=== PATIENT | female | born 1975 | race Native Hawaiian/Other Pacific Islander ===

== ENCOUNTER 2020-10-14 11:07 | Outpatient (REF) | payer OTHER, SELFPAY | END 2020-10-14 11:08 | disposition home or self-care (01) | LOC: HO.LAB 11:07 | PROVIDERS: Visit Provider Internal Medicine | DX: Z20.828 Contact with and (suspected) exposure to other viral communicable diseases (principal) | CPT/HCPCS: C9803; U0003 ==

== ENCOUNTER 2020-11-13 13:58 | Outpatient (REF) | payer OTHER, SELFPAY | END 2020-11-13 13:59 | disposition home or self-care (01) | LOC: HO.LAB 13:58 | PROVIDERS: PCP Nurse Practitioner Family; Visit Provider Internal Medicine | DX: Z20.828 Contact with and (suspected) exposure to other viral communicable diseases (principal) | CPT/HCPCS: C9803; U0003 ==

== ENCOUNTER → 2020-12-03 12:36 | Outpatient (BNVA) | payer OTHER, SELFPAY | PROVIDERS: PCP Nurse Practitioner Family; Visit Provider Surgery | DX: Z01.818 Encounter for other preprocedural examination (principal); E66.01 Morbid (severe) obesity due to excess calories; R06.02 Shortness of breath | CPT/HCPCS: 99202 ==

== ENCOUNTER 2020-12-18 12:17 | Outpatient (REF) | payer OTHER, SELFPAY ==
--- NOTE | 2020-12-18 12:22 | ECG_ITS ---
Test Reason : SOB Blood Pressure : / mmHG Vent. Rate : 074 BPM Atrial Rate : 074 BPM P-R Int : 140 ms QRS Dur : 084 ms QT Int : 398 ms P-R-T Axes : 011 003 005 degrees QTc Int : 441 ms Normal sinus rhythm Normal ECG No previous ECGs available Referred By: Samreen Acevedo Electronically Signed By:Tate Figueroa
--- NOTE | 2020-12-18 12:43 | XR_ITS ---
EXAMINATION: XR CHEST CLINICAL INFORMATION: Shortness of breath COMPARISON: None TECHNIQUE: 2 views of the chest were obtained. FINDINGS: No significant abnormality is noted involving the heart, lungs, mediastinum, bony thorax or soft tissues. XR/XR chest 2V IMPRESSION: Unremarkable chest examination.
[2020-12-18 12:44] LABS: MANUAL DIFF FLAG NO
[2020-12-18 12:46] LABS: Basophils Percent Auto 0.4 % (0-2); Eosinophils Absolute Auto 0.3 X10*3/uL (0.0-0.4); Eosinophils Percent Auto 3.3 % (0-4); Hematocrit 47.9 % (37-47); Hemoglobin 15.3 g/dl (12.0-16.0); Imm Gran Abs Auto 0.05 X10*3/uL (0.00-0.03); Imm Gran Pct Auto 0.5 % (0.0-0.4); Lymphocytes Percent Auto 29.7 % (20-40); Mean Corpuscular HGB Conc 31.9 g/dl (31.0-35.0); Mean Corpuscular Hemoglobin 26.2 pg (27.0-33.0); Mean Platelet Volume 12.9 fL (9.4-12.3); Monocytes Absolute Auto 0.5 X10*3/uL (0.1-1.2); Neutrophils Absolute Auto 6.1 X10*3/uL (2.0-8.3); Neutrophils Percent Auto 61.1 % (45-73); Platelet Count 236 X10*3/uL (160-400); Red Blood Count 5.84 X10*6/uL (4.20-5.50); Red Cell Distribution Width 13.8 % (11.0-16.0)
[2020-12-18 13:09] LABS: Alanine Aminotransferase 38 U/L (0-31); Albumin Level 3.7 g/dL (3.5-5.0); Alkaline Phosphatase 96 U/L (39-117); Anion Gap 13 (12-20); Aspartate Amino Transferase 44 U/L (5-31); Bilirubin Total 0.9 mg/dL (0.0-1.0); Blood Urea Nitrogen 10 mg/dL (9-16); C Reactive Protein 4.31 mg/dL (< or = 0.50); Carbon Dioxide 25 mmol/L (22-29); Chloride 103 mmol/L (96-108); Cholesterol 122 mg/dL; Estimated Glomerular Filt Rate > 60; Glucose Fasting 271 mg/dL (60-99); HDL Cholesterol 32 mg/dL; Iron 50 mcg/dL (30-160); LDL Cholesterol Calculated 75 mg/dl; Percent Iron Saturation 17 % (15-50); Potassium 4.3 mmol/l (3.3-5.1); Sodium 137 mmol/L (135-145); Total Iron Binding Capacity 293 mcg/dL (228-428); Triglycerides 75 mg/dL; Unsaturated Iron Binding 243 ug/dL
[2020-12-18 13:29] LABS: Thyroid Stimulating Hormone 1.77 uIU/mL (0.32-4.0)
[2020-12-18 13:52] LABS: Vitamin B12 633 pg/mL (200-900)
[2020-12-19 16:22] LABS: Calcium (PTHI) 9.1 mg/dL (8.6-10.2); PTHI 46 pg/mL (14-64)
[2020-12-20 22:47] LABS: Zinc 57 mcg/dL (60-130)
[2020-12-23 12:56] LABS: Vitamin B1 <6 nmol/L (8-30)
[2020-12-25 15:52] LABS: Vitamin A 14 mcg/dL (38-98)
== END 2020-12-18 12:18 | disposition home or self-care (01) ==
LOC: HO.LAB 12:17
PROVIDERS: PCP Nurse Practitioner Family; Visit Provider Surgery
DX: Z01.818 Encounter for other preprocedural examination (principal); R06.02 Shortness of breath
CPT/HCPCS: 36415; 71046; 80053; 80061; 82306; 82607; 83540; 83970; 84425; 84443; 84590; 84630; 85025; 86140; 93005

== ENCOUNTER → 2020-12-19 08:07 | Outpatient (BNVA) | payer OTHER, SELFPAY | PROVIDERS: PCP Nurse Practitioner Family; Visit Provider Surgery ==

== ENCOUNTER 2020-12-23 10:17 | Outpatient (REF) | payer OTHER, SELFPAY | END 2020-12-23 10:18 | disposition home or self-care (01) | LOC: HO.LAB 10:17 | PROVIDERS: Visit Provider Internal Medicine | DX: Z20.822 Contact with and (suspected) exposure to COVID-19 (principal) | CPT/HCPCS: 36415; C9803; U0003; U0005 ==

== ENCOUNTER → 2021-01-02 08:24 | Outpatient (BNVA) | payer OTHER, SELFPAY | PROVIDERS: PCP Nurse Practitioner Family; Visit Provider Dietitian, Registered ==

== ENCOUNTER → 2021-01-23 08:12 | Outpatient (BNVA) | payer OTHER, SELFPAY | PROVIDERS: PCP Nurse Practitioner Family; Visit Provider Dietitian, Registered ==

== ENCOUNTER → 2021-11-05 08:42 | Outpatient (BNVA) | payer OTHER, SELFPAY | PROVIDERS: PCP Nurse Practitioner Family; Visit Provider Hospitalist | DX: J31.0 Chronic rhinitis (principal); J45.909 Unspecified asthma, uncomplicated; G47.33 Obstructive sleep apnea (adult) (pediatric); F17.200 Nicotine dependence, unspecified, uncomplicated; Z99.89 Dependence on other enabling machines and devices | CPT/HCPCS: 99202 ==

== ENCOUNTER 2021-12-18 09:39 | Outpatient (REF) | payer OTHER, SELFPAY ==
--- NOTE | 2021-12-18 13:10 | PFT_ITS ---
Forced vital capacity 68%, moderately decreased. FEV1 72% but FEV1/FVC ratio is 87, which is normal. FEF 25/75 82%, normal. MVV moderately reduced, 61. Postbronchodilator therapy, there is no change. Total lung capacity 77, slightly decreased. Residual volume 89% and diffusion capacity 81%. CONCLUSION: Vruw-kh-vbxyvbvc degree of restrictive pulmonary disorder. No obstructive airway disorder and no response to bronchodilator therapy. MD CLARITA Marrero/MODL / [id number]
== END 2021-12-18 09:40 | disposition home or self-care (01) ==
LOC: HO.RESP 09:39
PROVIDERS: Visit Provider Hospitalist
DX: R07.9 Chest pain, unspecified (principal); J45.909 Unspecified asthma, uncomplicated; J31.0 Chronic rhinitis; G47.33 Obstructive sleep apnea (adult) (pediatric); F17.200 Nicotine dependence, unspecified, uncomplicated; Z99.89 Dependence on other enabling machines and devices; Z71.6 Tobacco abuse counseling
CPT/HCPCS: 94060; 94727; 94729; 99212

== ENCOUNTER → 2022-06-19 10:27 | Outpatient (BNVA) | payer OTHER, SELFPAY | PROVIDERS: PCP Physician Assistant Medical; Visit Provider Hospitalist | DX: J45.909 Unspecified asthma, uncomplicated (principal); J31.0 Chronic rhinitis; F17.200 Nicotine dependence, unspecified, uncomplicated; G47.33 Obstructive sleep apnea (adult) (pediatric); Z99.89 Dependence on other enabling machines and devices; J44.9 Chronic obstructive pulmonary disease, unspecified | CPT/HCPCS: 99212 ==

== ENCOUNTER → 2022-09-18 10:23 | Outpatient (BNVA) | payer OTHER, SELFPAY | PROVIDERS: Visit Provider Hospitalist | DX: Z23 Encounter for immunization (principal); J44.9 Chronic obstructive pulmonary disease, unspecified; J45.909 Unspecified asthma, uncomplicated; G47.33 Obstructive sleep apnea (adult) (pediatric); F17.210 Nicotine dependence, cigarettes, uncomplicated; Z99.89 Dependence on other enabling machines and devices | CPT/HCPCS: 90471; 90686; 99212 ==

== ENCOUNTER → 2022-10-06 09:57 | Outpatient (REF) | payer OTHER, SELFPAY | LOC: HO.SL 09:57 | PROVIDERS: Visit Provider Hospitalist | DX: G47.33 Obstructive sleep apnea (adult) (pediatric) (principal) | CPT/HCPCS: 95806 ==

== ENCOUNTER 2022-10-07 10:45 | Outpatient (REF) | payer OTHER, SELFPAY ==
--- NOTE | ~2022-10-07 | XR_ITS ---
EXAMINATION: XR CHEST CLINICAL INFORMATION: Chest pain COMPARISON: Previous chest x-ray November 2020 TECHNIQUE: 2 views of the chest were obtained. FINDINGS: No significant abnormality is noted involving the heart, lungs, mediastinum, bony thorax or soft tissues. XR/XR chest 2V IMPRESSION: Unremarkable examination.
== END 2022-10-07 10:46 | disposition home or self-care (01) ==
LOC: HO.XRAY 10:45
PROVIDERS: Visit Provider Hospitalist
DX: R07.9 Chest pain, unspecified (principal)
CPT/HCPCS: 71046

== ENCOUNTER → 2022-12-25 10:47 | Outpatient (BNVA) | payer OTHER, SELFPAY | PROVIDERS: Visit Provider Hospitalist | DX: J45.909 Unspecified asthma, uncomplicated (principal); J31.0 Chronic rhinitis; G47.33 Obstructive sleep apnea (adult) (pediatric); F17.210 Nicotine dependence, cigarettes, uncomplicated; Z79.899 Other long term (current) drug therapy; Z99.89 Dependence on other enabling machines and devices | CPT/HCPCS: 99212 ==

== ENCOUNTER 2023-01-15 07:42 | Outpatient (REF) | payer OTHER, SELFPAY ==
--- NOTE | ~2023-01-15 | CT_ITS ---
EXAMINATION: CT CHEST WITHOUT CONTRAST CLINICAL INFORMATION: Chest pain. COMPARISON: None TECHNIQUE: Multidetector volumetric CT imaging of the chest was done. Axial MIP volume rendering provided. Sagittal and coronal reformatted images were obtained. This CT examination was performed using dose optimization techniques as appropriate, variously including the following: *Automated exposure control *Adjustment of mA and/or kV according to patient size (this includes techniques or standardized protocols for targeted exams where dose is matched to indication/reason for exam; i.e. extremities or head) *Use of iterative reconstruction technique DLP: 253 mGy-cm FINDINGS: LUNGS: 4.5 mm left lower lobe lung nodule (image 352, series 4). MEDIASTINUM: The mediastinum appears unremarkable. CORONARY ARTERY CALCIFICATION: None visualized on this study. PLEURA: There is no pleural effusion. No pleural mass or thickening. AXILLA: No lymphadenopathy by size criteria. UPPER ABDOMEN: Unremarkable. OSSEOUS STRUCTURES: Unremarkable. CT/CT chest wo IV con IMPRESSION: No acute finding. 4.5 mm left lower lobe lung nodule. If the patient is not at high risk (for example, no known or suspected malignancy, no history of smoking, etc.), no further dedicated follow up imaging is indicated, per Fleischner Society guidelines. If the patient is at high risk, repeat CT scan of the chest at 12 months may be of use for further evaluation to confirm stability.
== END 2023-01-15 07:43 | disposition home or self-care (01) ==
LOC: HO.CT 07:42
PROVIDERS: Visit Provider Hospitalist
DX: R07.9 Chest pain, unspecified (principal)
CPT/HCPCS: 71250

== ENCOUNTER → 2023-02-22 13:14 | Outpatient (BNVA) | payer OTHER, SELFPAY | PROVIDERS: PCP Internal Medicine; Visit Provider Hospitalist | DX: J45.41 Moderate persistent asthma with (acute) exacerbation (principal); J40 Bronchitis, not specified as acute or chronic; J31.0 Chronic rhinitis; G47.33 Obstructive sleep apnea (adult) (pediatric); Z99.89 Dependence on other enabling machines and devices; F17.210 Nicotine dependence, cigarettes, uncomplicated | CPT/HCPCS: 99212 ==

== ENCOUNTER 2023-02-22 14:26 | Outpatient (REF) | payer OTHER, SELFPAY ==
[2023-02-22 15:16] LABS: Influenza A PCR NEGATIVE (Negative); Influenza B PCR NEGATIVE (Negative); Resp Syncy Virus RNA Qual PCR NEGATIVE (Negative); SARS COV2 PCR INHOUSE NEGATIVE (Negative)
== END 2023-02-22 14:27 | disposition home or self-care (01) ==
LOC: HO.LNP 14:26
PROVIDERS: Visit Provider Hospitalist
DX: Z20.822 Contact with and (suspected) exposure to COVID-19 (principal); J45.41 Moderate persistent asthma with (acute) exacerbation; J31.0 Chronic rhinitis; G47.33 Obstructive sleep apnea (adult) (pediatric); F17.200 Nicotine dependence, unspecified, uncomplicated; Z99.89 Dependence on other enabling machines and devices
CPT/HCPCS: 0241U

== ENCOUNTER → 2023-04-26 09:11 | Outpatient (BNVA) | payer OTHER, SELFPAY | PROVIDERS: PCP Internal Medicine; Visit Provider Hospitalist | DX: J45.40 Moderate persistent asthma, uncomplicated (principal); J40 Bronchitis, not specified as acute or chronic; J31.0 Chronic rhinitis; F17.210 Nicotine dependence, cigarettes, uncomplicated | CPT/HCPCS: 99212 ==

== ENCOUNTER 2023-10-26 10:36 | Outpatient (AMB) | payer OTHER, SELFPAY ==
[2023-10-26 10:45] VITALS: PULSE 89; O2SAT 96; BMI 37.8
--- NOTE | 2023-10-26 10:45 | MHC.OFFVIS ---
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 The patient states that she used to smoke about 4 packs a day stable to cut down now to about 2 packs a day which is very proud of. She understands she needs to continue cutting down. She continues to have significant shortness of breath and wheezing. She has been on multiple inhalers including Symbicort and ipratropium along with Incruse the therapy has not been effective for her. There may be some hearing issues as well. I do believe that Trelegy inhaler would be a better option for her with better adherence and once a day regimen that she will likely continue more regularly. She has known allergies that she has been tested in the past. she does complaint of some back pain and chest pain which is worsened by coughing. She was evaluated with a chest x-ray in the past without any acute disease. In addition to this the patient was diagnosed with obstructive sleep apnea. She has sleep study at [facility]. He has kxnh-xt-eufjcdsj sleep apnea with an AHI of 11. the patient does struggle with her CPAP. Feels like her CPAP settings are too high. She will bring her CPAP in during the next visit in order to adjusted. She has not gotten supplies. I explained to her that is likely due to the fact that she is not using her machine. Therefore will adjust her machine to see that she can use it more regularly and we can get his supplies more regularly. I will have to request from her [employer] company information about her level or status. The patient is considered not active she may need to get a repeat sleep study in order to get supplies. 12/25/2022 the patient is here for a pulmonary follow-up visit. The patient continues to have significant daytime drowsiness. She has headaches in the morning and has a hard time during the daytime. Her [place] score still elevated 10/15. We did have her undergo a home sleep study which demonstrated no significant sleep apnea. However the patient had a hard time with the equipment. Therefore, in view of her history of sleep apnea in the past and for persistent daytime drowsiness I will request an in-lab study at this time. In addition to that she continues to complain about chest pain. The chest pain is substernal in nature. Oyje-tf-yyjisbms severity. It is nonpleuritic. The patient did undergo a chest x-ray without any significant findings. The patient will benefit from a CT scan of the chest. She continues to smoke cigarettes in therefore she is high risk for malignancy. The patient is too young for the lung cancer screening program at this time. 02/22/2023 the patient is here for sick visit. She has been sick now for about a week. Complaining of worsening cough shortness of breath chest tightness. Moderate severity. Denies any fevers or chills. She did go to [facility] recently and there she spent most of the day. She was then evaluated by physician the patient states. She did have an x-ray that was clear per report and also her blood work was reassuring. She had a COVID test was negative. On exam today she has significant wheezing. She does have a nebulizer at home although she needs a new 1 and replacement as it is not working appropriately. Will request a replacement at this time. She needs to continue using the nebulizer every 4 hours. I will send her prednisone and also antibiotics. The patient also had a swab for flu RSV and COVID in the office. If it is positive we can consider treating her. 04/26/2023 the patient is here for pulmonary follow-up visit. She is finally getting better. Her respiratory symptoms have been improving. She does have some left-sided back discomfort somewhat pleuritic in nature although mild in severity. She did have a CT scan of the chest back in December that we looked at the demonstrating some subcentimeter pulmonary nodules but nothing concerning. She will need to get a repeat CT scan around December. In the meantime her sleep study was denied. She had 1 back in September. She continues to be symptomatic with daytime drowsiness and headaches in the morning. Because the patient has asthma COPD overlap syndrome will request an overnight oximetry test to assess the oxygen needs. During her sleep study her oxygen did drop to about 85%. The patient continues use her respiratory medications with good effect. She needs additional nebulized therapy. The patient unfortunately continues to smoke cigarettes. She is willing to go back to the patch. The patient smoking more than a back so I will provide her with a 21 mg nicotine patch and she can also use the Nicotrol inhaler or nasal spray as needed several times a day. 10/26/2023 the patient is here for a pulmonary follow-up visit. Has been complaining of worsening productive cough chest congestion and chest tightness. She has tried bpgw-fkt-fpmvswf medications without any significant improvement. The patient has been using the Trelegy with partial improvement of the symptoms. She is also using her rescue inhaler 3 to 4 times a day. She is concerned because she is traveling for . Will make sure to provide her with medications in lung enough for her to get to the on back. If the patient is no better she will call. She has been decreasing her smoking habit. She knows she needs to quit altogether. She does have the nicotine patches available. She did not have the overnight oximetry. Will hold off on any further testing at this time. [facility] Medical History (Updated 10/26/23 @ 12:26 by Omi Malone MD) Asthma-COPD overlap syndrome MARTÍN on CPAP Chest pain Tobacco dependence Chronic rhinitis Asthma PCOS (polycystic ovarian syndrome) Carpal tunnel syndrome Anxiety Vitamin D deficiency Infertility Depression Bipolar 2 disorder Asthma Sleep apnea Type 2 diabetes mellitus Surgical History Hx of wisdom tooth extraction Family History Mother Diabetes Father No problems noted. Sister No problems noted. Brother No problems noted. Social History (Updated 11/05/21 @ 09:53 by BOB Amor) Alcohol intake: never Patient Tobacco Use Status: Current everyday Tobacco user Tobacco use type: Cigarette Cigarette Packs Per Day: 1 Cigarettes Per Day: 20 Years Smoked: 29 Review of Systems Const Reports chills, Reports daytime sleepiness, Reports fatigue and Denies night sweats ENT Denies change in voice, Denies lip swelling, Denies mouth pain, Reports nasal congestion, Reports nasal discharge and Denies tongue swelling Card Reports chest pain, Reports dyspnea and Reports dyspnea on exertion Resp Reports change in phlegm color, Reports chest congestion, Reports cough, Reports dyspnea, Reports dyspnea on exertion and Reports wheezing GI Denies abdominal pain Musc Denies no additional complaints and Reports back pain Neuro Denies Neuro-related abnormal movements Psych Denies no additional complaints Endo Reports fatigue Wil/Lymph Denies easy bleeding and Denies lymphadenopathy Aller/Immun Denies lip swelling, Denies tongue swelling and Reports wheezing Physical Exam Vital Signs: Last Vital Signs Pulse 89 10/26/23 10:45 Pulse Ox 96 10/26/23 10:45 Oxygen Delivery Method Room Air 10/26/23 10:45 BMI result Body Mass Index 37.8 Const General: alert Neck Neck: Yes normal visual inspection, Yes full ROM and Yes no lymphadenopathy Chest Chest palpation & inspection: normal inspection of the chest Resp Effort & Inspection: Actively coughing Quality: actively coughing Auscultation: rhonchi, wheezes and diminished lung sounds Cardio Rate: regular rate Rhythm: regular rhythm Heart sounds: S1 normal heart sound present and S2 normal heart sound present GI Palpation (GI): Soft to palpation and nontender Auscultation: normal bowel sounds Skin General skin exam: rashes and/or lesions noted Assessment & Plan Assessment & Plan (1) Asthma: Code(s): J45.909 - Unspecified asthma, uncomplicated Qualifiers: Asthma complication type: with acute exacerbation Asthma persistence: persistent Asthma severity: moderate Qualified Code(s): J45.41 - Moderate persistent asthma with (acute) exacerbation (2) Bronchitis: Code(s): J40 - Bronchitis, not specified as acute or chronic (3) Chronic rhinitis: Code(s): J31.0 - Chronic rhinitis (4) Tobacco dependence: Code(s): F17.200 - Nicotine dependence, unspecified, uncomplicated Plan start Predniaone taper start Doxycycline nicotine patch BETH as needed, should use nebulizer continue Trelegy singular at nighttime Zyrtec in the morning fluticasone nasal spray tobacco cessation follow-up in 8-10 months Medications: New prednisone PO daily; Take 6 tabs daily x 3 days, then 5 tabs x 3 days, then 4 tabs x 3 days, then 3 tabs x 3 days, then 2 tabs daily x 3 days, then 1 tab x 3 days to complete. 18 days 63 tabs 0RF doxycycline hyclate 100 mg PO BID 10 days 20 caps 0RF Refilled dextromethorphan-guaifenesin 5-100 mg/5 mL 10 mL PO Q4-8H 14 days PRN 355 mL 2RF cough Quality Reporting (2019) Adult ([facility] 138/01/13/69) Smoking risk assessment performed?: Yes Patient Tobacco Use Status: Current everyday Tobacco user Coding Level of Care Code Est Pt Level 4 (73678) Diagnoses Moderate persistent asthma with acute exacerbation J45.41 Asthma complication type: with acute exacerbation Asthma persistence: persistent Asthma severity: moderate Bronchitis J40 Chronic rhinitis J31.0 Tobacco dependence F17.200 Time Spent (min) 16
== END 2023-10-26 11:07 | disposition home or self-care (01) ==
PROVIDERS: PCP Internal Medicine; Visit Provider Hospitalist
DX: J45.41 Moderate persistent asthma with (acute) exacerbation (principal); J40 Bronchitis, not specified as acute or chronic; J31.0 Chronic rhinitis; F17.200 Nicotine dependence, unspecified, uncomplicated
CPT/HCPCS: 99214

== ENCOUNTER → 2023-10-26 10:36 | Outpatient (BNVA) | payer OTHER, SELFPAY | PROVIDERS: PCP Internal Medicine; Visit Provider Hospitalist | DX: J45.41 Moderate persistent asthma with (acute) exacerbation (principal); J40 Bronchitis, not specified as acute or chronic; J31.0 Chronic rhinitis; F17.210 Nicotine dependence, cigarettes, uncomplicated | CPT/HCPCS: 99212 ==

== ENCOUNTER 2023-12-10 14:36 | Outpatient (AMB) | payer OTHER, SELFPAY ==
[2023-12-10 15:04] VITALS: PULSE 86; O2SAT 96; BMI 38.1
--- NOTE | 2023-12-10 15:04 | A.OFFVIS_ITS ---
Intake Vital Signs 12/10/23 15:04 Height 5 ft 4 in Weight 222 lb BMI 38.1 Pulse 86 Pulse Source Pulse Oximeter Pulse Oximetry (%) 96 Oxygen Delivery Method Room Air Intake Visit Reasons: Cough x1 month Shook Splicer Required: Yes Shook Splicer Name: Keon #[id number] Heat Pump Installer: Heat Pump Installer offered & declined Accompanied by: Self / Same As Patient Allergies No Known Allergies [No Known Allergies*] Allergy (Unverified 12/10/23 15:06) Medication List - Last Reconciled 12/10/23 by Margaret Briones LPN albuterol sulfate 90 mcg/actuation 2 inhalations inhalation Q6H PRN 30 days albuterol sulfate 2.5 mg (3 mL) inhalation Q4H PRN 30 days qdnlllcunw-doeqczqypgped-yaqz 50-325-40 mg 1 tab PO Q6H PRN cetirizine 10 mg PO DAILY PRN cholecalciferol (vitamin D3) 6,000 units PO DAILY desvenlafaxine ER 50 mg PO DAILY dulaglutide (Trulicity) mg subcut epinephrine 0.3 mg IM ONCE PRN fluticasone propionate 50 mcg/actuation 2 sprays intranasal DAILY ztclspqmlth-yqfqdozrw-gxwllphl 200-62.5-25 mcg (Trelegy Ellipta) 1 ea PO DAILY gabapentin 300 mg PO TID hydroxyzine HCl 25 mg PO BID PRN insulin glargine (Lantus Solostar U-100 Insulin) units subcut insulin lispro subcut lurasidone (Latuda) 40 mg PO DAILY montelukast 10 mg PO BEDTIME nebulizers As directed nicotine 1 patch transdermal DAILY 28 days nicotine (Nicotrol NS) 1 spray intranasal Q30M PRN prazosin 1 mg PO BEDTIME HPI Cough x1 month HPI Details Susan is a pleasant 48 year old female, current smoker, with underlying asthma and chronic bronchitis. At baseline she is moderately controlled on Trelegy and albuterol MDI/neb. Today she presents for an acute visit. She reports chest congestion and productive cough with yellow sputum with post cough emesis as well as moderate wheezing. She was evaluated by Dr. Malone on 10/26 with similar symptoms and states they have been unchanged since. He prescribed doxycyline but unfortunately she had to stop half way through due to surgery on her wrist. He also prescribed a long taper of prednisone. She took her last dose of prednisone two days ago and feels her wheezing/chest tightness has began to worsen. She continues to use her albuterol MDI upwards of 4 times per day and has been without solution for her nebulizer for the past week. [facility] Medical History (Updated 10/26/23 @ 12:26 by Omi Malone MD) Asthma-COPD overlap syndrome MARTÍN on CPAP Chest pain Tobacco dependence Chronic rhinitis Asthma PCOS (polycystic ovarian syndrome) Carpal tunnel syndrome Anxiety Vitamin D deficiency Infertility Depression Bipolar 2 disorder Asthma Sleep apnea Type 2 diabetes mellitus Surgical History Hx of wisdom tooth extraction Family History Mother Diabetes Father No problems noted. Sister No problems noted. Brother No problems noted. Social History (Updated 12/10/23 @ 15:22 by Margaret Briones LPN) Alcohol intake: never Patient Tobacco Use Status: Current everyday Tobacco user Tobacco use type: Cigarette Cigarette Packs Per Day: 2 Cigarettes Per Day: 20 Years Smoked: 29 Review of Systems Const Denies chills, Denies excessive sweating, Denies fever(s), Denies headache(s) and Denies night sweats Eyes Denies dry eyes, Denies irritation and Denies itchy eyes ENT Reports Normal hearing present, Denies headache(s), Denies nasal congestion, Denies nasal discharge, Denies post nasal drip and Denies sore throat Card Denies chest pain, Denies chest pain at rest, Denies chest pain with activity, Denies claudication, Denies leg edema, Denies dyspnea and Denies paroxysmal nocturnal dyspnea Resp Denies pain on inspiration, Denies pain with cough, Denies dyspnea and Denies stridor Musc Denies myalgias Neuro Reports Normal hearing present and Denies headache(s) Endo Denies excessive sweating Wil/Lymph Denies lymphadenopathy Aller/Immun Denies itchy eyes and Denies seasonal rhinorrhea Physical Exam Vital Signs: Last Vital Signs Pulse 86 12/10/23 15:04 Pulse Ox 96 12/10/23 15:04 Oxygen Delivery Method Room Air 12/10/23 15:04 BMI result Body Mass Index 38.1 Const General: cooperative, no acute distress, well developed and alert Nutritional Appearance: obese Orientation/consciousness: patient oriented x3 Limitations: no limitations HEENT Head: Yes normal to inspection, Yes normocephalic and Yes atraumatic Ears: hearing grossly normal bilaterally and external ears normal Eyes General: appearance normal, both eyes and all related structures Eyelids: Yes eyelids normal Sclerae: sclerae normal EOM: EOMs intact bilaterally Neck Neck: Yes normal visual inspection and Yes no lymphadenopathy Lymphatic: no lymphadenopathy noted Chest Chest palpation & inspection: normal inspection of the chest Resp Effort & Inspection: normal respiratory effort, able to speak in complete sentences, Actively coughing, no stridor, not tachypneic, no tripod positioning and no use of accessory muscles Auscultation: no crackles, no rhonchi and wheezes expiratory wheezes and throughout Cardio Jugular venous distension: no JVD Rate: regular rate Rhythm: regular rhythm Skin Other: warm, dry General skin exam: no rashes or lesions noted Neuro General: patient oriented x3 Cranial nerves: Yes Normal hearing present Cognition (Neuro): normal cognition Gait exam (Neuro): Normal gait present Extrem General: Yes normal to inspection, Yes capillary refill normal, Yes no clubbing, cyanosis or edema and Yes no pedal edema Psych Appearance: grossly normal and well kempt Speech and movement: Normal speech and movement present and Clear speech present Affect: normal affect Attitude: cooperative Thought process: Normal thought process present Thought content: Normal thought content present Insight: Good insight present (Psych) Judgement: Good judgement present (Psych) Office Procedures Nebulizer Treatment Nebulizer Treatment [id number]/MDI RX initial, or Nebulizer Subsequent Treatment Office Meds ipratropium 0.5 mg-albuterol 3 mg (2.5 mg base)/3 mL nebulization soln Performing Provider: Tatiana Jiménez NP Performing Location: [facility] Administered by: Margaret Briones LPN on 12/10/23 15:42 Dose Route Admin Location Dispensed Lot Number Expiration Date [facility] Marking Machine Tender 3 mL inhalation 3 mL [id number] 08/21/25 Assessment & Plan Assessment & Plan (1) Asthma: Code(s): J45.909 - Unspecified asthma, uncomplicated Qualifiers: Asthma severity: moderate Asthma persistence: persistent Asthma complication type: with acute exacerbation Qualified Code(s): J45.41 - Moderate persistent asthma with (acute) exacerbation (2) Bronchitis: Code(s): J40 - Bronchitis, not specified as acute or chronic (3) Tobacco dependence: Code(s): F17.200 - Nicotine dependence, unspecified, uncomplicated Plan Will treat bronchitic symptoms with vantin. Advised patient to finish complete course of medication. Will also send in prednisone and refill albuterol for neb, as patient with moderate wheezing throughout, minimally improved after duoneb in office. Discussed with patient if symptoms worsen to seek emergent care. If no better in 48-72 hours, advised patient to get CXR. Will enter order. All questions were answered and patient is in agreement of plan. Will follow up with Dr. Malone next month or sooner if needed. Orders: Orders AMB Nebulizer Treatment 12/10/23 J44.9 - Chronic obstructive pulmonary disease, unspecified XR chest 2V Today J40 - Bronchitis, not specified as acute or chronic AMB Nebulizer Treatment 12/10/23 J44.9 - Chronic obstructive pulmonary disease, unspecified Medications: New cefpodoxime must administer with a meal/food 200 mg PO BID 20 tabs 0RF albuterol sulfate 2.5 mg (3 mL) inhalation ONCE 3 mL 0RF J44.9 - Chronic obstructive pulmonary disease, unspecified albuterol sulfate 2.5 mg (3 mL) inhalation Q4-6H PRN 90 mL 3RF shortness of breath or wheezing Quality Reporting (2019) Adult ([facility] 13801/13/69) Smoking risk assessment performed?: Yes Patient Tobacco Use Status: Current everyday Tobacco user Coding Level of Care Code Est Pt Level 4 (67563) Diagnoses Moderate persistent asthma with acute exacerbation J45.41 Asthma severity: moderate Asthma persistence: persistent Asthma complication type: with acute exacerbation Bronchitis J40 Tobacco dependence F17.200 CPT Codes Nebulizer Treatment - Nebulizer Treatment, initial or subsequent: 64537- Nebulizer/MDI RX initial, or Nebulizer Subsequent Treatment ([id number])
== END 2023-12-10 16:16 | disposition home or self-care (01) ==
PROVIDERS: PCP Internal Medicine; Visit Provider Nurse Practitioner Family
DX: J45.41 Moderate persistent asthma with (acute) exacerbation (principal); J40 Bronchitis, not specified as acute or chronic; F17.200 Nicotine dependence, unspecified, uncomplicated
CPT/HCPCS: 99214

== ENCOUNTER → 2023-12-10 14:36 | Outpatient (BNVA) | payer OTHER, SELFPAY | PROVIDERS: PCP Internal Medicine; Visit Provider Nurse Practitioner Family | DX: J45.41 Moderate persistent asthma with (acute) exacerbation (principal); J40 Bronchitis, not specified as acute or chronic; F17.210 Nicotine dependence, cigarettes, uncomplicated | CPT/HCPCS: 94640; 99212 ==

== ENCOUNTER 2024-01-19 09:46 | Outpatient (AMB) | payer OTHER, SELFPAY ==
[2024-01-19 10:13] VITALS: PULSE 79; O2SAT 96; BMI 36.0
--- NOTE | 2024-01-19 10:13 | MHC.OFFVIS ---
Intake Vital Signs 01/19/24 10:13 Height 5 ft 4 in Weight 210 lb BMI 36.0 Pulse 79 Pulse Source Pulse Oximeter Pulse Oximetry (%) 96 Oxygen Delivery Method Room Air Intake Visit Reasons: follow up on cough Billing Rep Required: No Allergies No Known Allergies [No Known Allergies*] Allergy (Unverified 01/19/24 10:14) HPI HPI Comments History of Present Illness Details The patient is a 48-year-old woman with a known history of asthma, obstructive sleep apnea on CPAP in addition to tobacco dependency. The patient states that she used to smoke about 4 packs a day stable to cut down now to about 2 packs a day which is very proud of. She understands she needs to continue cutting down. She continues to have significant shortness of breath and wheezing. She has been on multiple inhalers including Symbicort and ipratropium along with Incruse the therapy has not been effective for her. There may be some hearing issues as well. I do believe that Trelegy inhaler would be a better option for her with better adherence and once a day regimen that she will likely continue more regularly. She has known allergies that she has been tested in the past. she does complaint of some back pain and chest pain which is worsened by coughing. She was evaluated with a chest x-ray in the past without any acute disease. In addition to this the patient was diagnosed with obstructive sleep apnea. She has sleep study at [facility]. He has [id number]-[id number] sleep apnea with an AHI of 11. the patient does struggle with her CPAP. Feels like her CPAP settings are too high. She will bring her CPAP in during the next visit in order to adjusted. She has not gotten supplies. I explained to her that is likely due to the fact that she is not using her machine. Therefore will adjust her machine to see that she can use it more regularly and we can get his supplies more regularly. I will have to request from her [employer] company information about her level or status. The patient is considered not active she may need to get a repeat sleep study in order to get supplies. 12/25/2022 the patient is here for a pulmonary follow-up visit. The patient continues to have significant daytime drowsiness. She has headaches in the morning and has a hard time during the daytime. Her [place] score still elevated 1124. We did have her undergo a home sleep study which demonstrated no significant sleep apnea. However the patient had a hard time with the equipment. Therefore, in view of her history of sleep apnea in the past and for persistent daytime drowsiness I will request an in-lab study at this time. In addition to that she continues to complain about chest pain. The chest pain is substernal in nature. Uqcn-lo-dytiylqa severity. It is nonpleuritic. The patient did undergo a chest x-ray without any significant findings. The patient will benefit from a CT scan of the chest. She continues to smoke cigarettes in therefore she is high risk for malignancy. The patient is too young for the lung cancer screening program at this time. 02/22/2023 the patient is here for sick visit. She has been sick now for about a week. Complaining of worsening cough shortness of breath chest tightness. Moderate severity. Denies any fevers or chills. She did go to [facility] recently and there she spent most of the day. She was then evaluated by physician the patient states. She did have an x-ray that was clear per report and also her blood work was reassuring. She had a COVID test was negative. On exam today she has significant wheezing. She does have a nebulizer at home although she needs a new 1 and replacement as it is not working appropriately. Will request a replacement at this time. She needs to continue using the nebulizer every 4 hours. I will send her prednisone and also antibiotics. The patient also had a swab for flu RSV and COVID in the office. If it is positive we can consider treating her. 04/26/2023 the patient is here for pulmonary follow-up visit. She is finally getting better. Her respiratory symptoms have been improving. She does have some left-sided back discomfort somewhat pleuritic in nature although mild in severity. She did have a CT scan of the chest back in December that we looked at the demonstrating some subcentimeter pulmonary nodules but nothing concerning. She will need to get a repeat CT scan around December. In the meantime her sleep study was denied. She had 1 back in September. She continues to be symptomatic with daytime drowsiness and headaches in the morning. Because the patient has asthma COPD overlap syndrome will request an overnight oximetry test to assess the oxygen needs. During her sleep study her oxygen did drop to about 85%. The patient continues use her respiratory medications with good effect. She needs additional nebulized therapy. The patient unfortunately continues to smoke cigarettes. She is willing to go back to the patch. The patient smoking more than a back so I will provide her with a 21 mg nicotine patch and she can also use the Nicotrol inhaler or nasal spray as needed several times a day. 10/26/2023 the patient is here for a pulmonary follow-up visit. Has been complaining of worsening productive cough chest congestion and chest tightness. She has tried zama-yxf-hiojfnr medications without any significant improvement. The patient has been using the Trelegy with partial improvement of the symptoms. She is also using her rescue inhaler 3 to 4 times a day. She is concerned because she is traveling for . Will make sure to provide her with medications in lung enough for her to get to the on back. If the patient is no better she will call. She has been decreasing her smoking habit. She knows she needs to quit altogether. She does have the nicotine patches available. She did not have the overnight oximetry. Will hold off on any further testing at this time. 01/19/2024 patient is here for a pulmonary follow-up visit. She is having hard time her breathing. She feels that she is getting more chest congestion and cough. Moderate severity. Unfortunately she continues to smoke cigarettes. She understands that while she smokes the medication is not going to be effective improving her symptoms. And ultimately she can get worse. She has been using the Trelegy inhaler with good effect. This point she has evidence of chronic bronchitis. Will go ahead and place her on azithromycin 3 times a week and also started him Daliresp. Will try to avoid prednisone since she has required frequent description solid. The patient also continues to have significant daytime drowsiness. She did have a sleep study demonstrating no significant sleep apnea. Will go and request an overnight oximetry to see if she has any evidence of hypoxia in view of her COPD. If she does have hypoxia as she will benefit from oxygen at nighttime. The patient continue the current therapy and will follow-up in 3-4 months. [facility] Medical History (Updated 10/26/23 @ 12:26 by Omi Malone MD) Asthma-COPD overlap syndrome MARTÍN on CPAP Chest pain Tobacco dependence Chronic rhinitis Asthma PCOS (polycystic ovarian syndrome) Carpal tunnel syndrome Anxiety Vitamin D deficiency Infertility Depression Bipolar 2 disorder Asthma Sleep apnea Type 2 diabetes mellitus Surgical History Hx of wisdom tooth extraction Family History Mother Diabetes Father No problems noted. Sister No problems noted. Brother No problems noted. Social History (Updated 12/10/23 @ 15:22 by Margaret Briones LPN) Alcohol intake: never Patient Tobacco Use Status: Current everyday Tobacco user Tobacco use type: Cigarette Cigarette Packs Per Day: 2 Cigarettes Per Day: 20 Years Smoked: 29 Review of Systems Const Reports daytime sleepiness, Reports fatigue and Denies night sweats ENT Denies change in voice, Denies lip swelling, Denies mouth pain, Reports nasal congestion, Reports nasal discharge and Denies tongue swelling Card Reports dyspnea and Reports dyspnea on exertion Resp Reports change in phlegm color, Reports chest congestion, Reports cough, Reports dyspnea, Reports dyspnea on exertion and Reports wheezing GI Denies abdominal pain Musc Denies no additional complaints and Reports back pain Neuro Denies Neuro-related abnormal movements Psych Denies no additional complaints Endo Reports fatigue Wil/Lymph Denies easy bleeding and Denies lymphadenopathy Aller/Immun Denies lip swelling, Denies tongue swelling and Reports wheezing Physical Exam Vital Signs: Last Vital Signs Pulse 79 01/19/24 10:13 Pulse Ox 96 01/19/24 10:13 Oxygen Delivery Method Room Air 01/19/24 10:13 BMI result Body Mass Index 36.0 Const General: alert Neck Neck: Yes normal visual inspection, Yes full ROM and Yes no lymphadenopathy Chest Chest palpation & inspection: normal inspection of the chest Resp Effort & Inspection: Actively coughing Quality: actively coughing Auscultation: rhonchi, wheezes and diminished lung sounds Cardio Rate: regular rate Rhythm: regular rhythm Heart sounds: S1 normal heart sound present and S2 normal heart sound present GI Palpation (GI): Soft to palpation and nontender Auscultation: normal bowel sounds Skin General skin exam: rashes and/or lesions noted Assessment & Plan Assessment & Plan (1) Asthma: Code(s): J45.909 - Unspecified asthma, uncomplicated Qualifiers: Asthma complication type: with acute exacerbation Asthma persistence: persistent Asthma severity: moderate Qualified Code(s): J45.41 - Moderate persistent asthma with (acute) exacerbation (2) Bronchitis: Code(s): J40 - Bronchitis, not specified as acute or chronic (3) Chronic rhinitis: Code(s): J31.0 - Chronic rhinitis (4) Tobacco dependence: Code(s): F17.200 - Nicotine dependence, unspecified, uncomplicated (5) Asthma-COPD overlap syndrome: Code(s): J44.9 - Chronic obstructive pulmonary disease, unspecified Plan BETH as needed, should use nebulizer continue Trelegy singular at nighttime Start Azithromycin MWF x 8 weeks Start Daliresp 250mcg daily Zyrtec in the morning fluticasone nasal spray Overnight oximetry follow-up in 4-6 months Orders: Orders Overnight Pulse Oximetry Today J44.9 - Chronic obstructive pulmonary disease, unspecified Medications: New roflumilast (Daliresp) 250 mcg PO DAILY 30 tabs 11RF 30 days J44.9 - Chronic obstructive pulmonary disease, unspecified azithromycin Take 1 tablet on Wednesday/Wednesday/Wednesday 250 mg PO 3XW 12 tabs 1RF 28 days K21.9 - Gastro-esophageal reflux disease without esophagitis Quality Reporting (2019) Adult ([facility] 13801/13/69) Smoking risk assessment performed?: Yes Patient Tobacco Use Status: Current everyday Tobacco user Coding Level of Care Code Est Pt Level 4 (30874) Diagnoses Moderate persistent asthma with acute exacerbation J45.41 Asthma complication type: with acute exacerbation Asthma persistence: persistent Asthma severity: moderate Bronchitis J40 Chronic rhinitis J31.0 Tobacco dependence F17.200 Asthma-COPD overlap syndrome J44.9 Time Spent (min) 17
== END 2024-01-19 10:37 | disposition home or self-care (01) ==
PROVIDERS: PCP Internal Medicine; Visit Provider Hospitalist
DX: J45.41 Moderate persistent asthma with (acute) exacerbation (principal); J40 Bronchitis, not specified as acute or chronic; J31.0 Chronic rhinitis; F17.200 Nicotine dependence, unspecified, uncomplicated; J44.9 Chronic obstructive pulmonary disease, unspecified
CPT/HCPCS: 99214

== ENCOUNTER → 2024-01-19 09:46 | Outpatient (BNVA) | payer OTHER, SELFPAY | PROVIDERS: PCP Internal Medicine; Visit Provider Hospitalist | DX: J45.41 Moderate persistent asthma with (acute) exacerbation (principal); J40 Bronchitis, not specified as acute or chronic; J31.0 Chronic rhinitis; J44.9 Chronic obstructive pulmonary disease, unspecified; F17.210 Nicotine dependence, cigarettes, uncomplicated | CPT/HCPCS: 99212 ==

== ENCOUNTER 2024-05-16 14:03 | Outpatient (AMB) | payer OTHER, SELFPAY ==
--- NOTE | 2024-05-16 14:12 | MHC.OFFVIS ---
Vital Signs 05/16/24 14:13 Height 5 ft 4 in Weight 210 lb BMI 36.0 Pulse 92 Pulse Source Pulse Oximeter Pulse Oximetry (%) 97 Oxygen Delivery Method Room Air Intake Visit Reasons: follow up on cough Snailer Required: No Allergies No Known Allergies [No Known Allergies*] Allergy (Unverified 05/16/24 14:14) HPI Comments Details: The patient is a 49-year-old woman with a known history of asthma, obstructive sleep apnea on CPAP in addition to tobacco dependency. The patient states that she used to smoke about 4 packs a day stable to cut down now to about 2 packs a day which is very proud of. She understands she needs to continue cutting down. She continues to have significant shortness of breath and wheezing. She has been on multiple inhalers including Symbicort and ipratropium along with Incruse the therapy has not been effective for her. There may be some hearing issues as well. I do believe that Trelegy inhaler would be a better option for her with better adherence and once a day regimen that she will likely continue more regularly. She has known allergies that she has been tested in the past. she does complaint of some back pain and chest pain which is worsened by coughing. She was evaluated with a chest x-ray in the past without any acute disease. In addition to this the patient was diagnosed with obstructive sleep apnea. She has sleep study at [facility]. He has qsdd-te-jhmchfgh sleep apnea with an AHI of 11. the patient does struggle with her CPAP. Feels like her CPAP settings are too high. She will bring her CPAP in during the next visit in order to adjusted. She has not gotten supplies. I explained to her that is likely due to the fact that she is not using her machine. Therefore will adjust her machine to see that she can use it more regularly and we can get his supplies more regularly. I will have to request from her [employer] company information about her level or status. The patient is considered not active she may need to get a repeat sleep study in order to get supplies. 12/25/2022 the patient is here for a pulmonary follow-up visit. The patient continues to have significant daytime drowsiness. She has headaches in the morning and has a hard time during the daytime. Her Schwertner score still elevated 10/15. We did have her undergo a home sleep study which demonstrated no significant sleep apnea. However the patient had a hard time with the equipment. Therefore, in view of her history of sleep apnea in the past and for persistent daytime drowsiness I will request an in-lab study at this time. In addition to that she continues to complain about chest pain. The chest pain is substernal in nature. Gpbc-et-agsxhlkf severity. It is nonpleuritic. The patient did undergo a chest x-ray without any significant findings. The patient will benefit from a CT scan of the chest. She continues to smoke cigarettes in therefore she is high risk for malignancy. The patient is too young for the lung cancer screening program at this time. 02/22/2023 the patient is here for sick visit. She has been sick now for about a week. Complaining of worsening cough shortness of breath chest tightness. Moderate severity. Denies any fevers or chills. She did go to [facility] recently and there she spent most of the day. She was then evaluated by physician the patient states. She did have an x-ray that was clear per report and also her blood work was reassuring. She had a COVID test was negative. On exam today she has significant wheezing. She does have a nebulizer at home although she needs a new 1 and replacement as it is not working appropriately. Will request a replacement at this time. She needs to continue using the nebulizer every 4 hours. I will send her prednisone and also antibiotics. The patient also had a swab for flu RSV and COVID in the office. If it is positive we can consider treating her. 04/26/2023 the patient is here for pulmonary follow-up visit. She is finally getting better. Her respiratory symptoms have been improving. She does have some left-sided back discomfort somewhat pleuritic in nature although mild in severity. She did have a CT scan of the chest back in December that we looked at the demonstrating some subcentimeter pulmonary nodules but nothing concerning. She will need to get a repeat CT scan around December. In the meantime her sleep study was denied. She had 1 back in September. She continues to be symptomatic with daytime drowsiness and headaches in the morning. Because the patient has asthma COPD overlap syndrome will request an overnight oximetry test to assess the oxygen needs. During her sleep study her oxygen did drop to about 85%. The patient continues use her respiratory medications with good effect. She needs additional nebulized therapy. The patient unfortunately continues to smoke cigarettes. She is willing to go back to the patch. The patient smoking more than a back so I will provide her with a 21 mg nicotine patch and she can also use the Nicotrol inhaler or nasal spray as needed several times a day. 10/26/2023 the patient is here for a pulmonary follow-up visit. Has been complaining of worsening productive cough chest congestion and chest tightness. She has tried zmzy-uit-vidpmpq medications without any significant improvement. The patient has been using the Trelegy with partial improvement of the symptoms. She is also using her rescue inhaler 3 to 4 times a day. She is concerned because she is traveling for . Will make sure to provide her with medications in lung enough for her to get to the on back. If the patient is no better she will call. She has been decreasing her smoking habit. She knows she needs to quit altogether. She does have the nicotine patches available. She did not have the overnight oximetry. Will hold off on any further testing at this time. 01/19/2024 patient is here for a pulmonary follow-up visit. She is having hard time her breathing. She feels that she is getting more chest congestion and cough. Moderate severity. Unfortunately she continues to smoke cigarettes. She understands that while she smokes the medication is not going to be effective improving her symptoms. And ultimately she can get worse. She has been using the Trelegy inhaler with good effect. This point she has evidence of chronic bronchitis. Will go ahead and place her on azithromycin 3 times a week and also started him Daliresp. Will try to avoid prednisone since she has required frequent description solid. The patient also continues to have significant daytime drowsiness. She did have a sleep study demonstrating no significant sleep apnea. Will go and request an overnight oximetry to see if she has any evidence of hypoxia in view of her COPD. If she does have hypoxia as she will benefit from oxygen at nighttime. The patient continue the current therapy and will follow-up in 3-4 months. 05/16/2024 the patient is here for a pulmonary follow-up visit. The patient is still struggling with her breathing. She has been using the Trelegy. Still waking up with chest tightness and cough. Sometimes she has some difficulty at nighttime that affects her sleep. She still having significant daytime drowsiness. Her Schwertner score is elevated 11/24. We did try to get her a in-lab sleep study but she did not qualify. She did have a home sleep study back in 2021. Will go ahead and repeat a home sleep study at this time. In addition to that she did have a CT scan of the chest done back in 01/11/2023 which we personally reviewed. The patient had multiple pulmonary nodules and largest 1 measuring 4.5 mm in size. Therefore, will go ahead and repeat her CT scan at this time. She is also concerned because she has an avid smoker in at risk for lung cancer. She is too young for the lung cancer screening program at this time. She did cut down from her cigarette smoking she was smoking up to 3 packs a day and she is down to 1 pack a day. She has not ready to quit smoking altogether. Otherwise she continues with respiratory medicine. [facility] Medical History (Updated 05/16/24 @ 14:31 by Omi Malone MD) Pulmonary nodule Asthma-COPD overlap syndrome MARTÍN on CPAP Chest pain Tobacco dependence Chronic rhinitis Asthma PCOS (polycystic ovarian syndrome) Carpal tunnel syndrome Anxiety Vitamin D deficiency Infertility Depression Bipolar 2 disorder Asthma Sleep apnea Type 2 diabetes mellitus Surgical History Hx of wisdom tooth extraction Family History Mother Diabetes Father No problems noted. Sister No problems noted. Brother No problems noted. Social History (Updated 12/10/23 @ 15:22 by Margaret Briones LPN) Alcohol intake: never Patient Tobacco Use Status: Current everyday Tobacco user Tobacco use type: Cigarette Cigarette Packs Per Day: 2 Cigarettes Per Day: 20 Years Smoked: 29 Review of Systems Const Reports daytime sleepiness, Reports fatigue and Denies night sweats ENT Denies change in voice, Denies lip swelling, Denies mouth pain, Reports nasal congestion, Reports nasal discharge and Denies tongue swelling Card Reports dyspnea and Reports dyspnea on exertion Resp Reports change in phlegm color, Reports chest congestion, Reports cough, Reports dyspnea, Reports dyspnea on exertion and Reports wheezing GI Denies abdominal pain Musc Denies no additional complaints and Reports back pain Neuro Denies Neuro-related abnormal movements Psych Denies no additional complaints Endo Reports fatigue Wil/Lymph Denies easy bleeding and Denies lymphadenopathy Aller/Immun Denies lip swelling, Denies tongue swelling and Reports wheezing Physical Exam Vital Signs: Last Vital Signs Pulse 92 05/16/24 14:13 Pulse Ox 97 05/16/24 14:13 Oxygen Delivery Method Room Air 05/16/24 14:13 BMI result Body Mass Index 36.0 Const General: alert Neck Neck: Yes normal visual inspection, Yes full ROM and Yes no lymphadenopathy Chest Chest palpation & inspection: normal inspection of the chest Resp Effort & Inspection: Actively coughing Quality: actively coughing Auscultation: rhonchi, wheezes and diminished lung sounds Cardio Rate: regular rate Rhythm: regular rhythm Heart sounds: S1 normal heart sound present and S2 normal heart sound present GI Palpation (GI): Soft to palpation and nontender Auscultation: normal bowel sounds Skin General skin exam: rashes and/or lesions noted Quality Reporting (2019) Adult ([facility] 138/01/13/69) Smoking risk assessment performed?: Yes Patient Tobacco Use Status: Current everyday Tobacco user Assessment & Plan Assessment & Plan (1) Asthma: Code(s): J45.909 - Unspecified asthma, uncomplicated Category: Medical Qualifiers: Asthma complication type: with acute exacerbation Asthma persistence: persistent Asthma severity: moderate Qualified Code(s): J45.41 - Moderate persistent asthma with (acute) exacerbation (2) Bronchitis: Code(s): J40 - Bronchitis, not specified as acute or chronic Category: Medical (3) Chronic rhinitis: Code(s): J31.0 - Chronic rhinitis Category: Medical (4) Tobacco dependence: Code(s): F17.200 - Nicotine dependence, unspecified, uncomplicated Category: Medical (5) Asthma-COPD overlap syndrome: Code(s): J44.9 - Chronic obstructive pulmonary disease, unspecified Category: Medical (6) Pulmonary nodule: Code(s): R91.1 - Solitary pulmonary nodule Category: Medical (7) MARTÍN (obstructive sleep apnea): Code(s): G47.33 - Obstructive sleep apnea (adult) (pediatric) Category: Medical Plan BETH as needed, should use nebulizer continue Trelegy singular at nighttime restart Azithromycin MWF x 8 weeks increase Daliresp 500 mcg daily Zyrtec in the morning fluticasone nasal spray home PSG CT chest follow-up in 3 months Orders: Orders CT chest wo IV con Today R91.1 - Solitary pulmonary nodule RT home sleep study Today G47.33 - Obstructive sleep apnea (adult) (pediatric) Medications: New roflumilast (Daliresp) 500 mcg PO DAILY 30 tabs 11RF 30 days Refilled azithromycin Take 1 tablet on Wednesday/Wednesday/Wednesday 250 mg PO 3XW 12 tabs 3RF 28 days K21.9 - Gastro-esophageal reflux disease without esophagitis Discontinued roflumilast (Daliresp) Discontinued Reason: Doctor's Order 250 mcg PO DAILY 30 days 30 tabs 11RF J44.9 - Chronic obstructive pulmonary disease, unspecified Coding Level of Care Code Est Pt Level 4 (28336) Diagnoses Moderate persistent asthma with acute exacerbation J45.41 Asthma complication type: with acute exacerbation Asthma persistence: persistent Asthma severity: moderate Bronchitis J40 Chronic rhinitis J31.0 Tobacco dependence F17.200 Asthma-COPD overlap syndrome J44.9 Pulmonary nodule R91.1 MARTÍN (obstructive sleep apnea) G47.33 Time Spent (min) 16
[2024-05-16 14:13] VITALS: PULSE 92; O2SAT 97; BMI 36.0
== END 2024-05-16 14:35 | disposition home or self-care (01) ==
PROVIDERS: PCP Internal Medicine; Visit Provider Hospitalist
DX: J45.41 Moderate persistent asthma with (acute) exacerbation (principal); J40 Bronchitis, not specified as acute or chronic; J31.0 Chronic rhinitis; F17.200 Nicotine dependence, unspecified, uncomplicated; J44.9 Chronic obstructive pulmonary disease, unspecified; R91.1 Solitary pulmonary nodule; G47.33 Obstructive sleep apnea (adult) (pediatric)
CPT/HCPCS: 99214

== ENCOUNTER → 2024-05-16 14:03 | Outpatient (BNVA) | payer OTHER, SELFPAY | PROVIDERS: PCP Internal Medicine; Visit Provider Hospitalist | DX: J45.41 Moderate persistent asthma with (acute) exacerbation (principal); J40 Bronchitis, not specified as acute or chronic; J44.9 Chronic obstructive pulmonary disease, unspecified; J31.0 Chronic rhinitis; R91.1 Solitary pulmonary nodule; G47.33 Obstructive sleep apnea (adult) (pediatric); F17.200 Nicotine dependence, unspecified, uncomplicated; Z99.89 Dependence on other enabling machines and devices | CPT/HCPCS: 99212 ==

== ENCOUNTER 2024-07-10 10:38 | Outpatient (REF) | payer OTHER, SELFPAY ==
--- NOTE | ~2024-07-10 | CT_ITS ---
EXAMINATION: CT CHEST WITHOUT CONTRAST CLINICAL INFORMATION: Solitary pulmonary nodule. COMPARISON: 01/15/2023. TECHNIQUE: Multidetector volumetric CT imaging of the chest was done. Axial MIP volume rendering provided. Sagittal and coronal reformatted images were obtained. This CT examination was performed using dose optimization techniques as appropriate, variously including the following: *Automated exposure control *Adjustment of mA and/or kV according to patient size (this includes techniques or standardized protocols for targeted exams where dose is matched to indication/reason for exam; i.e. extremities or head) *Use of iterative reconstruction technique DLP: 235 mGy-cm FINDINGS: PULMONARY NODULES: -There are a few calcified tiny granulomata, benign and stable. -Average diameter 3 mm fissural nodule, inferior left major fissure, unchanged and consistent with intrapulmonary lymph node (series 5, image 239). -Subpleural 4 mm nodule lateral left lower lobe (series 5, image 362), unchanged and stable. This is benign. -No new or enlarging nodules. LUNGS: The lungs are clear with no evidence of abnormal opacities or consolidations. MEDIASTINUM: The mediastinum is stable, and normal. CORONARY ARTERY CALCIFICATION: Mild LAD calcification. PLEURA: There is no pleural effusion. No pleural mass or thickening. AXILLA/CHEST WALL: No lymphadenopathy. No masses. UPPER ABDOMEN: Normal. OSSEOUS STRUCTURES: No suspicious lesions. Normal. CT/CT chest wo IV con IMPRESSION: 1. Stable left lower lobe 4 mm nodule, benign. No new or enlarging pulmonary nodules. No active pulmonary disease. 2. No new findings compared with prior examination 01/15/2023. Optional 1 year follow-up as per Fleischner guidelines, only in a high-risk patient. Electronically signed by: Artur Zamorano MD 09/15/2024 09:41 AM EDT
== END 2024-07-10 10:39 | disposition home or self-care (01) ==
LOC: HO.CT 10:38
PROVIDERS: PCP Internal Medicine; Visit Provider Hospitalist
DX: R91.1 Solitary pulmonary nodule (principal)
CPT/HCPCS: 71250

== ENCOUNTER → 2024-07-10 10:41 | Outpatient (BNV) | payer OTHER, SELFPAY | PROVIDERS: PCP Internal Medicine; Visit Provider Radiology Diagnostic Radiology | DX: R91.1 Solitary pulmonary nodule (principal) | CPT/HCPCS: 71250 ==

== ENCOUNTER 2024-07-20 13:44 | Outpatient (AMB) | payer OTHER, SELFPAY ==
[2024-07-20 13:49] VITALS: BP 118/60; PULSE 88; O2SAT 98; BMI 37.8
--- NOTE | 2024-07-20 13:49 | A.OFFVIS_ITS ---
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 The patient states that she used to smoke about 4 packs a day stable to cut down now to about 2 packs a day which is very proud of. She understands she needs to continue cutting down. She continues to have significant shortness of breath and wheezing. She has been on multiple inhalers including Symbicort and ipratropium along with Incruse the therapy has not been effective for her. There may be some hearing issues as well. I do believe that Trelegy inhaler would be a better option for her with better adherence and once a day regimen that she will likely continue more regularly. She has known allergies that she has been tested in the past. she does complaint of some back pain and chest pain which is worsened by coughing. She was evaluated with a chest x-ray in the past without any acute disease. In addition to this the patient was diagnosed with obstructive sleep apnea. She has sleep study at [facility]. He has [id number] sleep apnea with an AHI of 11. the patient does struggle with her CPAP. Feels like her CPAP settings are too high. She will bring her CPAP in during the next visit in order to adjusted. She has not gotten supplies. I explained to her that is likely due to the fact that she is not using her machine. Therefore will adjust her machine to see that she can use it more regularly and we can get his supplies more regularly. I will have to request from her [employer] company information about her level or status. The patient is considered not active she may need to get a repeat sleep study in order to get supplies. 01/19/2024 patient is here for a pulmonary follow-up visit. She is having hard time her breathing. She feels that she is getting more chest congestion and cough. Moderate severity. Unfortunately she continues to smoke cigarettes. She understands that while she smokes the medication is not going to be effective improving her symptoms. And ultimately she can get worse. She has been using the Trelegy inhaler with good effect. This point she has evidence of chronic bronchitis. Will go ahead and place her on azithromycin 3 times a week and also started him Daliresp. Will try to avoid prednisone since she has required frequent description solid. The patient also continues to have significant daytime drowsiness. She did have a sleep study demonstrating no significant sleep apnea. Will go and request an overnight oximetry to see if she has any evidence of hypoxia in view of her COPD. If she does have hypoxia as she will benefit from oxygen at nighttime. The patient continue the current therapy and will follow-up in 3-4 months. 05/16/2024 the patient is here for a pulmonary follow-up visit. The patient is still struggling with her breathing. She has been using the Trelegy. Still waking up with chest tightness and cough. Sometimes she has some difficulty at nighttime that affects her sleep. She still having significant daytime drowsiness. Her Martelle score is elevated 11/24. We did try to get her a in- lab sleep study but she did not qualify. She did have a home sleep study back in 2021. Will go ahead and repeat a home sleep study at this time. In addition to that she did have a CT scan of the chest done back in 01/11/2023 which we personally reviewed. The patient had multiple pulmonary nodules and largest 1 measuring 4.5 mm in size. Therefore, will go ahead and repeat her CT scan at this time. She is also concerned because she has an avid smoker in at risk for lung cancer. She is too young for the lung cancer screening program at this time. She did cut down from her cigarette smoking she was smoking up to 3 packs a day and she is down to 1 pack a day. She has not ready to quit smoking altogether. Otherwise she continues with respiratory medicine. 07/20/2024 the patient is here for a pulmonary follow-up visit. The patient overall is doing well. She is still struggling with smoking. She has been smoking about 2 packs a day. She really wants to quit. Although she gets very irritable and has a lot of anxiety when she is thinking about quitting. She is willing to try will retry this time. Will start 150 mg twice a day. In addition to that she can use the nicotine patch. The patient does have a history depression so therefore hold off on Chantix. The patient also had a CT scan of the chest that we personally reviewed. Appears that her pulmonary nodule is stable. Will waiting for the final read. But based on my interpretation look pretty stable. The patient will continue her respiratory medications at this time. She has responded well to the azithromycin also the Daliresp. Once she completes the azithromycin she can just continue on the Daliresp. [facility] Medical History (Updated 05/16/24 @ 14:31 by Omi Malone MD) Pulmonary nodule Asthma-COPD overlap syndrome MARTÍN on CPAP Chest pain Tobacco dependence Chronic rhinitis Asthma PCOS (polycystic ovarian syndrome) Carpal tunnel syndrome Anxiety Vitamin D deficiency Infertility Depression Bipolar 2 disorder Asthma Sleep apnea Type 2 diabetes mellitus Surgical History Hx of wisdom tooth extraction Family History Mother Diabetes Father No problems noted. Sister No problems noted. Brother No problems noted. Social History (Updated 12/10/23 @ 15:22 by Margaret Briones LPN) Alcohol intake: never Patient Tobacco Use Status: Current everyday Tobacco user Tobacco use type: Cigarette Cigarette Packs Per Day: 2 Cigarettes Per Day: 20 Years Smoked: 29 Review of Systems Const Reports daytime sleepiness, Reports fatigue and Denies night sweats ENT Denies change in voice, Denies lip swelling, Denies mouth pain, Reports nasal congestion, Reports nasal discharge and Denies tongue swelling Card Reports dyspnea and Reports dyspnea on exertion Resp Reports change in phlegm color, Reports chest congestion, Reports cough, Reports dyspnea, Reports dyspnea on exertion and Reports wheezing GI Denies abdominal pain Musc Denies no additional complaints and Reports back pain Neuro Denies Neuro-related abnormal movements Psych Denies no additional complaints Endo Reports fatigue Wil/Lymph Denies easy bleeding and Denies lymphadenopathy Aller/Immun Denies lip swelling, Denies tongue swelling and Reports wheezing Physical Exam Vital Signs: Last Vital Signs Pulse 88 07/20/24 13:49 BP 118/60 07/20/24 13:49 Pulse Ox 98 07/20/24 13:49 Oxygen Delivery Method Room Air 07/20/24 13:49 BMI result Body Mass Index 37.8 Const General: alert Neck Neck: Yes normal visual inspection, Yes full ROM and Yes no lymphadenopathy Chest Chest palpation & inspection: normal inspection of the chest Resp Effort & Inspection: Actively coughing Quality: actively coughing Auscultation: rhonchi, wheezes and diminished lung sounds Cardio Rate: regular rate Rhythm: regular rhythm Heart sounds: S1 normal heart sound present and S2 normal heart sound present GI Palpation (GI): Soft to palpation and nontender Auscultation: normal bowel sounds Skin General skin exam: rashes and/or lesions noted Quality Reporting (2019) Adult ([facility] [address] 138/01/13/69) Smoking risk assessment performed?: Yes Patient Tobacco Use Status: Current everyday Tobacco user Assessment & Plan Assessment & Plan (1) Asthma: Code(s): J45.909 - Unspecified asthma, uncomplicated Category: Medical Qualifiers: Asthma complication type: with acute exacerbation Asthma persistence: persistent Asthma severity: moderate Qualified Code(s): J45.41 - Moderate persistent asthma with (acute) exacerbation (2) Bronchitis: Code(s): J40 - Bronchitis, not specified as acute or chronic Category: Medical (3) Chronic rhinitis: Code(s): J31.0 - Chronic rhinitis Category: Medical (4) Tobacco dependence: Code(s): F17.200 - Nicotine dependence, unspecified, uncomplicated Category: Medical (5) Asthma-COPD overlap syndrome: Code(s): J44.9 - Chronic obstructive pulmonary disease, unspecified Category: Medical (6) Pulmonary nodule: Code(s): R91.1 - Solitary pulmonary nodule Category: Medical (7) MARTÍN (obstructive sleep apnea): Code(s): G47.33 - Obstructive sleep apnea (adult) (pediatric) Category: Medical Plan BETH as needed, should use nebulizer continue Trelegy singular at nighttime continue Daliresp 500 mcg daily Zyrtec in the morning fluticasone nasal spray start Wellbutrin/patch for smoking cessation CT chest in 1 yr follow-up in 4-6 months Medications: New bupropion HCl (smoking deter) 150 mg PO BID 60 tabs 6RF 30 days Refilled nicotine 1 patch transdermal DAILY 28 ea 3RF 28 days Discontinued cefpodoxime must administer with a meal/food Discontinued Reason: Doctor's Order 200 mg PO BID 20 tabs 0RF nicotine (Nicotrol NS) Discontinued Reason: Doctor's Order 1 spray intranasal Q30M PRN 40 mL 0RF for nicotine cravings Coding Level of Care Code Est Pt Level 4 (12913) Diagnoses Moderate persistent asthma with acute exacerbation J45.41 Asthma complication type: with acute exacerbation Asthma persistence: persistent Asthma severity: moderate Bronchitis J40 Chronic rhinitis J31.0 Tobacco dependence F17.200 Asthma-COPD overlap syndrome J44.9 Pulmonary nodule R91.1 MARTÍN (obstructive sleep apnea) G47.33 Time Spent (min) 17
== END 2024-07-20 14:10 | disposition home or self-care (01) ==
PROVIDERS: PCP Internal Medicine; Visit Provider Hospitalist
DX: J45.41 Moderate persistent asthma with (acute) exacerbation (principal); J40 Bronchitis, not specified as acute or chronic; J31.0 Chronic rhinitis; F17.200 Nicotine dependence, unspecified, uncomplicated; J44.9 Chronic obstructive pulmonary disease, unspecified; R91.1 Solitary pulmonary nodule; G47.33 Obstructive sleep apnea (adult) (pediatric)
CPT/HCPCS: 99214

== ENCOUNTER → 2024-07-20 13:44 | Outpatient (BNVA) | payer OTHER, SELFPAY | PROVIDERS: PCP Internal Medicine; Visit Provider Hospitalist | DX: J45.41 Moderate persistent asthma with (acute) exacerbation (principal); J40 Bronchitis, not specified as acute or chronic; J31.0 Chronic rhinitis; J44.9 Chronic obstructive pulmonary disease, unspecified; R91.1 Solitary pulmonary nodule; G47.33 Obstructive sleep apnea (adult) (pediatric); F17.210 Nicotine dependence, cigarettes, uncomplicated | CPT/HCPCS: 99212 ==

== ENCOUNTER 2024-10-12 10:51 | Outpatient (AMB) | payer OTHER, SELFPAY ==
[2024-10-12 11:19] VITALS: BP 114/70; PULSE 88; O2SAT 96; BMI 37.6
--- NOTE | 2024-10-12 11:19 | A.OFFVIS_ITS ---
Vital Signs 10/12/24 11:19 Height 5 ft 4 in Weight 219 lb 5.759 oz BMI 37.6 BP 114/70 Blood Pressure Location Lt brachial Position Sitting Pulse 88 Pulse Source Pulse Oximeter Pulse Oximetry (%) 96 Oxygen Delivery Method Room Air Intake Visit Reasons: Congestion,sore throat, cough Allergies No Known Allergies [No Known Allergies*] Allergy (Unverified 07/20/24 13:51) HPI Comments Details: The patient is a 49-year-old woman with a known history of asthma, obstructive sleep apnea on CPAP in addition to tobacco dependency. The patient states that she used to smoke about 4 packs a day stable to cut down now to about 2 packs a day which is very proud of. She understands she needs to continue cutting down. She continues to have significant shortness of breath and wheezing. She has been on multiple inhalers including Symbicort and ipratropium along with Incruse the therapy has not been effective for her. There may be some hearing issues as well. I do believe that Trelegy inhaler would be a better option for her with better adherence and once a day regimen that she will likely continue more regularly. She has known allergies that she has been tested in the past. she does complaint of some back pain and chest pain which is worsened by coughing. She was evaluated with a chest x-ray in the past without any acute disease. In addition to this the patient was diagnosed with obstructive sleep apnea. She has sleep study at [facility]. He has [id number] sleep apnea with an AHI of 11. the patient does struggle with her CPAP. Feels like her CPAP settings are too high. She will bring her CPAP in during the next visit in order to adjusted. She has not gotten supplies. I explained to her that is likely due to the fact that she is not using her machine. Therefore will adjust her machine to see that she can use it more regularly and we can get his supplies more regularly. I will have to request from her [employer] company information about her level or status. The patient is considered not active she may need to get a repeat sleep study in order to get supplies. 01/19/2024 patient is here for a pulmonary follow-up visit. She is having hard time her breathing. She feels that she is getting more chest congestion and cough. Moderate severity. Unfortunately she continues to smoke cigarettes. She understands that while she smokes the medication is not going to be effective improving her symptoms. And ultimately she can get worse. She has been using the Trelegy inhaler with good effect. This point she has evidence of chronic bronchitis. Will go ahead and place her on azithromycin 3 times a week and also started him Daliresp. Will try to avoid prednisone since she has required frequent description solid. The patient also continues to have significant daytime drowsiness. She did have a sleep study demonstrating no significant sleep apnea. Will go and request an overnight oximetry to see if she has any evidence of hypoxia in view of her COPD. If she does have hypoxia as she will benefit from oxygen at nighttime. The patient continue the current therapy and will follow-up in 3-4 months. 05/16/2024 the patient is here for a pulmonary follow-up visit. The patient is still struggling with her breathing. She has been using the Trelegy. Still w aking up with chest tightness and cough. Sometimes she has some difficulty at nighttime that affects her sleep. She still having significant daytime drowsiness. Her [place] score is elevated 11/24. We did try to get her a in- lab sleep study but she did not qualify. She did have a home sleep study back in 2021. Will go ahead and repeat a home sleep study at this time. In addition to that she did have a CT scan of the chest done back in 01/11/2023 which we personally reviewed. The patient had multiple pulmonary nodules and largest 1 measuring 4.5 mm in size. Therefore, will go ahead and repeat her CT scan at this time. She is also concerned because she has an avid smoker in at risk for lung cancer. She is too young for the lung cancer screening program at this time. She did cut down from her cigarette smoking she was smoking up to 3 packs a day and she is down to 1 pack a day. She has not ready to quit smoking altogether. Otherwise she continues with respiratory medicine. 07/20/2024 the patient is here for a pulmonary follow-up visit. The patient overall is doing well. She is still struggling with smoking. She has been smoking about 2 packs a day. She really wants to quit. Although she gets very irritable and has a lot of anxiety when she is thinking about quitting. She is willing to try will retry this time. Will start 150 mg twice a day. In addition to that she can use the nicotine patch. The patient does have a history depression so therefore hold off on Chantix. The patient also had a CT scan of the chest that we personally reviewed. Appears that her pulmonary nodule is stable. Will waiting for the final read. But based on my interpretation look pretty stable. The patient will continue her respiratory medications at this time. She has responded well to the azithromycin also the Daliresp. Once she completes the azithromycin she can just continue on the Daliresp. 10/12/2024 the patient is here for pulmonary sick visit. She has been sick now for about 3 4 days. She started developing worsening cough chest congestion. Significant wheezing. She has been using her nebulizer several times a day. Only help partially. She is on hard time sleeping. She has not taking any prescription medications at this time. She still struggling with smoking. On exam she does have significant rhonchi and wheezing throughout. She will need prednisone for COPD exacerbation. In addition to that will start him some doxycycline. The mucus seems to be white clear and thick. In addition to that she can continue the nebulizer frequently. Patient needs to refrain from smoking. If she is no better she will call early next week if she is worse she may need to broaden the ED. [facility] Medical History (Updated 05/16/24 @ 14:31 by Omi Malone MD) Pulmonary nodule Asthma-COPD overlap syndrome MARTÍN on CPAP Chest pain Tobacco dependence Chronic rhinitis Asthma PCOS (polycystic ovarian syndrome) Carpal tunnel syndrome Anxiety Vitamin D deficiency Infertility Depression Bipolar 2 disorder Asthma Sleep apnea Type 2 diabetes mellitus Surgical History Hx of wisdom tooth extraction Family History Mother Diabetes Father No problems noted. Sister No problems noted. Brother No problems noted. Social History (Updated 12/10/23 @ 15:22 by Margaret Briones LPN) Alcohol intake: never Patient Tobacco Use Status: Current everyday Tobacco user Tobacco use type: Cigarette Cigarette Packs Per Day: 2 Cigarettes Per Day: 20 Years Smoked: 29 Review of Systems Const Reports daytime sleepiness, Reports fatigue and Denies night sweats ENT Denies change in voice, Denies lip swelling, Denies mouth pain, Reports nasal congestion, Reports nasal discharge and Denies tongue swelling Card Reports dyspnea and Reports dyspnea on exertion Resp Reports change in phlegm color, Reports chest congestion, Reports cough, Reports dyspnea, Reports dyspnea on exertion and Reports wheezing GI Denies abdominal pain Musc Denies no additional complaints and Reports back pain Neuro Denies Neuro-related abnormal movements Psych Denies no additional complaints Endo Reports fatigue Wil/Lymph Denies easy bleeding and Denies lymphadenopathy Aller/Immun Denies lip swelling, Denies tongue swelling and Reports wheezing Physical Exam Vital Signs: Last Vital Signs Pulse 88 10/12/24 11:19 BP 114/70 10/12/24 11:19 Pulse Ox 96 10/12/24 11:19 Oxygen Delivery Method Room Air 10/12/24 11:19 BMI result Body Mass Index 37.6 Const General: alert Neck Neck: Yes normal visual inspection, Yes full ROM and Yes no lymphadenopathy Chest Chest palpation & inspection: normal inspection of the chest Resp Effort & Inspection: Actively coughing Quality: actively coughing Auscultation: rhonchi, wheezes and diminished lung sounds Cardio Rate: regular rate Rhythm: regular rhythm Heart sounds: S1 normal heart sound present and S2 normal heart sound present GI Palpation (GI): Soft to palpation and nontender Auscultation: normal bowel sounds Skin General skin exam: rashes and/or lesions noted Quality Reporting (2019) Adult ([facility] ) Smoking risk assessment performed?: Yes Patient Tobacco Use Status: Current everyday Tobacco user Assessment & Plan Assessment & Plan (1) Asthma: Code(s): J45.909 - Unspecified asthma, uncomplicated Category: Medical Qualifiers: Asthma complication type: with acute exacerbation Asthma persistence: persistent Asthma severity: moderate Qualified Code(s): J45.41 - Moderate persistent asthma with (acute) exacerbation (2) Bronchitis: Code(s): J40 - Bronchitis, not specified as acute or chronic Category: Medical (3) Chronic rhinitis: Code(s): J31.0 - Chronic rhinitis Category: Medical (4) Tobacco dependence: Code(s): F17.200 - Nicotine dependence, unspecified, uncomplicated Category: Medical (5) Asthma-COPD overlap syndrome: Code(s): J44.9 - Chronic obstructive pulmonary disease, unspecified Category: Medical (6) Pulmonary nodule: Code(s): R91.1 - Solitary pulmonary nodule Category: Medical (7) MARTÍN (obstructive sleep apnea): Code(s): G47.33 - Obstructive sleep apnea (adult) (pediatric) Category: Medical Plan BETH as needed, should use nebulizer continue Trelegy singular at nighttime continue Daliresp 500 mcg daily Zyrtec in the morning fluticasone nasal spray start smoking cessation start Prednisone taper start Doxycycline CT chest in 1 yr follow-up in 4-6 months Medications: New prednisone PO daily; Take 4 tabs x 3 days, then 3 tabs x 3 days, then 2 tabs daily x 3 days, then 1 tab x 3 days to complete. 42 tabs 0RF 12 days doxycycline hyclate 100 mg PO BID 20 caps 0RF 10 days Refilled albuterol sulfate 2.5 mg (3 mL) inhalation Q4-6H PRN 180 mL 3RF shortness of breath or wheezing Coding Level of Care Code Est Pt Level 4 (44385) Diagnoses Moderate persistent asthma with acute exacerbation J45.41 Asthma complication type: with acute exacerbation Asthma persistence: persistent Asthma severity: moderate Bronchitis J40 Chronic rhinitis J31.0 Tobacco dependence F17.200 Asthma-COPD overlap syndrome J44.9 Pulmonary nodule R91.1 MARTÍN (obstructive sleep apnea) G47.33 Time Spent (min) 16
== END 2024-10-12 12:54 | disposition home or self-care (01) ==
PROVIDERS: PCP Internal Medicine; Visit Provider Hospitalist
DX: J45.41 Moderate persistent asthma with (acute) exacerbation (principal); J40 Bronchitis, not specified as acute or chronic; J31.0 Chronic rhinitis; F17.200 Nicotine dependence, unspecified, uncomplicated; J44.9 Chronic obstructive pulmonary disease, unspecified; R91.1 Solitary pulmonary nodule; G47.33 Obstructive sleep apnea (adult) (pediatric)
CPT/HCPCS: 99214

== ENCOUNTER → 2024-10-12 10:51 | Outpatient (BNVA) | payer OTHER, SELFPAY | PROVIDERS: PCP Internal Medicine; Visit Provider Hospitalist | DX: J45.41 Moderate persistent asthma with (acute) exacerbation (principal); J40 Bronchitis, not specified as acute or chronic; J31.0 Chronic rhinitis; J44.9 Chronic obstructive pulmonary disease, unspecified; R91.1 Solitary pulmonary nodule; G47.33 Obstructive sleep apnea (adult) (pediatric); F17.200 Nicotine dependence, unspecified, uncomplicated | CPT/HCPCS: 99212 ==

== ENCOUNTER 2024-11-08 11:42 | Outpatient (AMB) | payer OTHER, SELFPAY ==
[2024-11-08 11:49] VITALS: BP 108/60; PULSE 82; O2SAT 98
--- NOTE | 2024-11-08 11:49 | MHC.OFFVIS ---
Vital Signs 11/08/24 11:49 Weight 213 lb 13.574 oz BP 108/60 Blood Pressure Location Rt brachial Position Sitting Pulse 82 Pulse Source Pulse Oximeter Pulse Oximetry (%) 98 Oxygen Delivery Method Room Air Intake Visit Reasons: Cough Allergies No Known Allergies [No Known Allergies*] Allergy (Unverified 11/08/24 11:53) Medication List - Last Reconciled 11/08/24 by Beulah Alexander, EDI COORDINATOR albuterol sulfate 2.5 mg (3 mL) inhalation Q4-6H PRN albuterol sulfate 90 mcg/actuation 2 inhalations inhalation Q6H PRN 30 days amoxicillin-pot clavulanate 875-125 mg 1 tab PO BID 10 days azithromycin 250 mg PO 3XW 28 days bupropion HCl (smoking deter) 150 mg PO BID 30 days karocauqbi-lectfumwfyccq-rzia 50-325-40 mg 1 tab PO Q6H PRN cetirizine 10 mg PO DAILY PRN cholecalciferol (vitamin D3) 6,000 units PO DAILY codeine-guaifenesin 10-100 mg/5 mL 10 mL PO Q6H PRN 10 days desvenlafaxine ER 50 mg PO DAILY doxycycline hyclate 100 mg PO BID 10 days dulaglutide (Trulicity) mg subcut epinephrine 0.3 mg IM ONCE PRN fluticasone propionate 50 mcg/actuation 2 sprays intranasal DAILY uxjjydbxbkn-sgacpvfeq-ocwylqxb 200-62.5-25 mcg (Trelegy Ellipta) 1 ea PO DAILY gabapentin 300 mg PO TID hydroxyzine HCl 25 mg PO BID PRN insulin glargine (Lantus Solostar U-100 Insulin) units subcut insulin lispro subcut lurasidone (Latuda) 40 mg PO DAILY montelukast 10 mg PO BEDTIME nebulizers As directed nicotine 1 patch transdermal DAILY 28 days prazosin 1 mg PO BEDTIME prednisone PO daily; Take 4 tabs x 3 days, then 3 tabs x 3 days, then 2 tabs daily x 3 days, then 1 tab x 3 days to complete. 12 days roflumilast (Daliresp) 500 mcg PO DAILY 30 days HPI Comments Details: The patient is a 49-year-old woman with a known history of asthma, obstructive sleep apnea on CPAP in addition to tobacco dependency. The patient states that she used to smoke about 4 packs a day stable to cut down now to about 2 packs a day which is very proud of. She understands she needs to continue cutting down. She continues to have significant shortness of breath and wheezing. She has been on multiple inhalers including Symbicort and ipratropium along with Incruse the therapy has not been effective for her. There may be some hearing issues as well. I do believe that Trelegy inhaler would be a better option for her with better adherence and once a day regimen that she will likely continue more regularly. She has known allergies that she has been tested in the past. she does complaint of some back pain and chest pain which is worsened by coughing. She was evaluated with a chest x-ray in the past without any acute disease. In addition to this the patient was diagnosed with obstructive sleep apnea. She has sleep study at [facility]. He has yade-tn-ybanchbg sleep apnea with an AHI of 11. the patient does struggle with her CPAP. Feels like her CPAP settings are too high. She will bring her CPAP in during the next visit in order to adjusted. She has not gotten supplies. I explained to her that is likely due to the fact that she is not using her machine. Therefore will adjust her machine to see that she can use it more regularly and we can get his supplies more regularly. I will have to request from her [employer] company information about her level or status. The patient is considered not active she may need to get a repeat sleep study in order to get supplies. 01/19/2024 patient is here for a pulmonary follow-up visit. She is having hard time her breathing. She feels that she is getting more chest congestion and cough. Moderate severity. Unfortunately she continues to smoke cigarettes. She understands that while she smokes the medication is not going to be effective improving her symptoms. And ultimately she can get worse. She has been using the Trelegy inhaler with good effect. This point she has evidence of chronic bronchitis. Will go ahead and place her on azithromycin 3 times a week and also started him Daliresp. Will try to avoid prednisone since she has required frequent description solid. The patient also continues to have significant daytime drowsiness. She did have a sleep study demonstrating no significant sleep apnea. Will go and request an overnight oximetry to see if she has any evidence of hypoxia in view of her COPD. If she does have hypoxia as she will benefit from oxygen at nighttime. The patient continue the current therapy and will follow-up in 3-4 months. 05/16/2024 the patient is here for a pulmonary follow-up visit. The patient is still struggling with her breathing. She has been using the Trelegy. Still waking up with chest tightness and cough. Sometimes she has some difficulty at nighttime that affects her sleep. She still having significant daytime drowsiness. Her [place] score is elevated 10/15. We did try to get her a in-lab sleep study but she did not qualify. She did have a home sleep study back in 2021. Will go ahead and repeat a home sleep study at this time. In addition to that she did have a CT scan of the chest done back in 01/11/2023 which we personally reviewed. The patient had multiple pulmonary nodules and largest 1 measuring 4.5 mm in size. Therefore, will go ahead and repeat her CT scan at this time. She is also concerned because she has an avid smoker in at risk for lung cancer. She is too young for the lung cancer screening program at this time. She did cut down from her cigarette smoking she was smoking up to 3 packs a day and she is down to 1 pack a day. She has not ready to quit smoking altogether. Otherwise she continues with respiratory medicine. 07/20/2024 the patient is here for a pulmonary follow-up visit. The patient overall is doing well. She is still struggling with smoking. She has been smoking about 2 packs a day. She really wants to quit. Although she gets very irritable and has a lot of anxiety when she is thinking about quitting. She is willing to try will retry this time. Will start 150 mg twice a day. In addition to that she can use the nicotine patch. The patient does have a history depression so therefore hold off on Chantix. The patient also had a CT scan of the chest that we personally reviewed. Appears that her pulmonary nodule is stable. Will waiting for the final read. But based on my interpretation look pretty stable. The patient will continue her respiratory medications at this time. She has responded well to the azithromycin also the Daliresp. Once she completes the azithromycin she can just continue on the Daliresp. 10/12/2024 the patient is here for pulmonary sick visit. She has been sick now for about 3 4 days. She started developing worsening cough chest congestion. Significant wheezing. She has been using her nebulizer several times a day. Only help partially. She is on hard time sleeping. She has not taking any prescription medications at this time. She still struggling with smoking. On exam she does have significant rhonchi and wheezing throughout. She will need prednisone for COPD exacerbation. In addition to that will start him some doxycycline. The mucus seems to be white clear and thick. In addition to that she can continue the nebulizer frequently. Patient needs to refrain from smoking. If she is no better she will call early next week if she is worse she may need to broaden the ED. 11/08/2024 the patient is here for a pulmonary follow-up visit. Overall she is feeling better. Chest congestion significantly improved. Although she still has some sore throat and hoarseness. She did complete all the antibiotics. The patient did required the cough medication with good effect. She still has some leftover in case she needs it. She did complete the prednisone. No further wheezing at this time. Therefore, the patient will continue with current respiratory regimen. She is still struggling with her smoking. She knows she needs to quit although not sure she is ready. Will follow-up in 4-6 months. If any issues arise she will call for an earlier assessment. [facility] Medical History (Updated 11/08/24 @ 22:34 by Omi Malone MD) Pulmonary nodule Asthma-COPD overlap syndrome MARTÍN on CPAP Chest pain Tobacco dependence Chronic rhinitis Asthma PCOS (polycystic ovarian syndrome) Carpal tunnel syndrome Anxiety Vitamin D deficiency Infertility Depression Bipolar 2 disorder Asthma Sleep apnea Type 2 diabetes mellitus Surgical History Hx of wisdom tooth extraction Family History Mother Diabetes Father No problems noted. Sister No problems noted. Brother No problems noted. Social History (Updated 12/10/23 @ 15:22 by Margaret Briones LPN) Alcohol intake: never Patient Tobacco Use Status: Current everyday Tobacco user Tobacco use type: Cigarette Cigarette Packs Per Day: 2 Cigarettes Per Day: 20 Years Smoked: 29 Review of Systems Const Reports daytime sleepiness, Reports fatigue and Denies night sweats ENT Denies change in voice, Reports hoarseness, Denies lip swelling, Denies mouth pain, Reports nasal congestion, Reports nasal discharge, Reports sore throat and Denies tongue swelling Card Denies dyspnea and Reports dyspnea on exertion Resp Denies change in phlegm color, Denies chest congestion, Reports cough, Denies dyspnea, Reports dyspnea on exertion and Reports wheezing GI Denies abdominal pain Musc Denies no additional complaints and Reports back pain Neuro Denies Neuro-related abnormal movements Psych Denies no additional complaints Endo Reports fatigue Wil/Lymph Denies easy bleeding and Denies lymphadenopathy Aller/Immun Denies lip swelling, Denies tongue swelling and Reports wheezing Physical Exam Vital Signs: Last Vital Signs Pulse 82 11/08/24 11:49 BP 108/60 11/08/24 11:49 Pulse Ox 98 11/08/24 11:49 Oxygen Delivery Method Room Air 11/08/24 11:49 Const General: alert HEENT Throat: Yes posterior oropharynx abnormal Neck Neck: Yes normal visual inspection, Yes full ROM and Yes no lymphadenopathy Chest Chest palpation & inspection: normal inspection of the chest Resp Effort & Inspection: normal respiratory effort Auscultation: no rhonchi, no wheezes and diminished lung sounds Cardio Rate: regular rate Rhythm: regular rhythm Heart sounds: S1 normal heart sound present and S2 normal heart sound present GI Palpation (GI): Soft to palpation and nontender Auscultation: normal bowel sounds Skin General skin exam: rashes and/or lesions noted Quality Reporting (2019) Adult ([facility] 138/01/13/69) Smoking risk assessment performed?: Yes Patient Tobacco Use Status: Current everyday Tobacco user Assessment & Plan Assessment & Plan (1) Asthma: Code(s): J45.909 - Unspecified asthma, uncomplicated Category: Medical Qualifiers: Asthma complication type: uncomplicated Asthma persistence: persistent Asthma severity: moderate Qualified Code(s): J45.40 - Moderate persistent asthma, uncomplicated (2) Bronchitis: Code(s): J40 - Bronchitis, not specified as acute or chronic Category: Medical (3) Chronic rhinitis: Code(s): J31.0 - Chronic rhinitis Category: Medical (4) Tobacco dependence: Code(s): F17.200 - Nicotine dependence, unspecified, uncomplicated Category: Medical (5) Asthma-COPD overlap syndrome: Code(s): J44.9 - Chronic obstructive pulmonary disease, unspecified Category: Medical (6) Pulmonary nodule: Code(s): R91.1 - Solitary pulmonary nodule Category: Medical (7) MARTÍN (obstructive sleep apnea): Code(s): G47.33 - Obstructive sleep apnea (adult) (pediatric) Category: Medical Plan BETH as needed, should use nebulizer continue Trelegy singular at nighttime continue Daliresp 500 mcg daily Zyrtec in the morning fluticasone nasal spray start smoking cessation start Augmentin CT chest 06/2025 follow-up in 4-6 months Medications: Refilled feupukgfcji-aeibspvav-tetaqbbm 200-62.5-25 mcg (Trelegy Ellipta) 1 ea PO DAILY 60 ea 3RF amoxicillin-pot clavulanate 875-125 mg 1 tab PO BID 20 tabs 0RF 10 days Coding Level of Care Code Est Pt Level 4 (85772) Diagnoses Moderate persistent asthma without complication J45.40 Asthma complication type: uncomplicated Asthma persistence: persistent Asthma severity: moderate Bronchitis J40 Chronic rhinitis J31.0 Tobacco dependence F17.200 Asthma-COPD overlap syndrome J44.9 Pulmonary nodule R91.1 MARTÍN (obstructive sleep apnea) G47.33 Time Spent (min) 16
== END 2024-11-08 12:23 | disposition home or self-care (01) ==
PROVIDERS: PCP Internal Medicine; Visit Provider Hospitalist
DX: J45.40 Moderate persistent asthma, uncomplicated (principal); J40 Bronchitis, not specified as acute or chronic; J31.0 Chronic rhinitis; F17.200 Nicotine dependence, unspecified, uncomplicated; J44.9 Chronic obstructive pulmonary disease, unspecified; R91.1 Solitary pulmonary nodule; G47.33 Obstructive sleep apnea (adult) (pediatric)
CPT/HCPCS: 99214

== ENCOUNTER → 2024-11-08 11:42 | Outpatient (BNVA) | payer OTHER, SELFPAY | PROVIDERS: PCP Internal Medicine; Visit Provider Hospitalist | DX: J45.40 Moderate persistent asthma, uncomplicated (principal); J40 Bronchitis, not specified as acute or chronic; J31.0 Chronic rhinitis; J44.9 Chronic obstructive pulmonary disease, unspecified; R91.1 Solitary pulmonary nodule; G47.33 Obstructive sleep apnea (adult) (pediatric); F17.210 Nicotine dependence, cigarettes, uncomplicated | CPT/HCPCS: 99212 ==

== ENCOUNTER 2025-04-08 16:57 | Emergency (ER) | payer OTHER, SELFPAY ==
--- NOTE | ~2025-04-08 | XR_ITS ---
CLINICAL HISTORY: right mid back pain w deep breathing 2 view chest x-ray Comparison: CR/SR - XR CHEST 2V - 10/07/22 10:59 EST Findings: Heart size is borderline enlarged. No consolidation, pleural effusion or pneumothorax. Mild bilateral interstitial prominence. No acute fracture. IMPRESSION: 1. Possible low-grade congestive heart failure. Otherwise no acute findings. This document has been electronically signed by: Tila Green MD on 04/08/2025 18:12:45
--- NOTE | 2025-04-08 17:02 | ED_ITS ---
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 The pain is worse if she takes a deep breath, bends or changes position She reports she had some right shoulder and arm pain prior to the onset of her back pain Patient denies any chest pain, shortness of breath, cough. Denies any abdominal pain, nausea vomiting month burning with urination Related Data Home Medications ?Medication ?Instructions ?Recorded ?Confirmed cholecalciferol (vitamin D3) 125 6,000 unit PO DAILY 12/19/20 11/08/24 mcg (5,000 unit) capsule mwmrhaefjg-fxfbrivzobmkg-qguzkrpu 1 tab PO Q6H PRN 11/05/21 11/08/24 50 mg-325 mg-40 mg tablet desvenlafaxine 50 mg 50 mg PO DAILY 11/05/21 11/08/24 tablet,extended release 24 hr hydroxyzine HCl 25 mg tablet 25 mg PO BID PRN 06/19/22 11/08/24 lurasidone 40 mg tablet (Latuda) 40 mg PO DAILY 06/19/22 11/08/24 dulaglutide 4.5 mg/0.5 mL mg subcut 02/22/23 11/08/24 subcutaneous [facility] epinephrine 0.3 mg/0.3 mL 0.3 mg IM ONCE PRN anaphylaxis 02/22/23 11/08/24 injection, auto-injector insulin glargine 100 unit/mL (3 unit subcut 02/22/23 11/08/24 mL) subcutaneous pen (Lantus Solostar U-100 Insulin) insulin lispro 100 unit/mL subcut 02/22/23 11/08/24 subcutaneous solution nebulizers 02/22/23 11/08/24 prazosin 1 mg capsule 1 mg PO BEDTIME 02/22/23 11/08/24 gabapentin 300 mg capsule 300 mg PO TID 12/10/23 11/08/24 Previous Rx's ?Medication ?Instructions ?Recorded cetirizine 10 mg tablet 10 mg PO DAILY PRN for allergies 12/08/22 #90 tabs fluticasone propionate 50 2 spray intranasal DAILY #16 grams 12/08/22 mcg/actuation nasal spray,suspension albuterol sulfate 90 mcg/actuation 2 inh inhalation Q6H PRN shortness 04/24/24 aerosol inhaler of breath or wheezing 30 days #18 grams montelukast 10 mg tablet 10 mg PO BEDTIME #30 tabs 04/24/24 azithromycin 250 mg tablet 250 mg PO 3XW 28 days #12 tabs 05/16/24 roflumilast 500 mcg tablet 500 mcg PO DAILY 30 days #30 tabs 05/16/24 (Daliresp) albuterol sulfate 2.5 mg/3 mL 2.5 mg (3 mL) inhalation Q4-6H PRN 10/12/24 (0.083 %) solution for nebulization shortness of breath or wheezing #180 mL doxycycline hyclate 100 mg capsule 100 mg PO BID 10 days #20 caps 10/12/24 prednisone 10 mg tablet See Rx Instructions PO DAILY 12 10/12/24 days #42 tabs codeine 10 mg-guaifenesin 100 mg/5 10 ml PO Q6H PRN cough 10 days 10/23/24 mL oral liquid #300 mL amoxicillin 875 mg-potassium 1 tab PO BID 10 days #20 tabs 11/08/24 clavulanate 125 mg tablet fluticasone fur. 200 mcg-umeclid 1 ea PO DAILY #60 ea 11/08/24 62.5 mcg-vilant 25 mcg inhalat.powder (Trelegy Ellipta) nicotine 21 mg/24 hr daily 1 patch transdermal DAILY 28 days 01/31/25 transdermal patch #28 ea bupropion HCl (smoking deter) 150 150 mg PO BID 30 days #60 tabs 04/03/ mg tablet,12 hr sustained-release(smoking deterrent) cyclobenzaprine 10 mg tablet 10 mg PO TID PRN muscle spasm #20 04/08/25 tabs Allergies Allergy/AdvReac Type Severity Reaction Status Date / Time latex Allergy Unknown Verified 04/08/25 17:05 Review of Systems 2 Constitutional: Constitutional: Denies body ache(s), Denies chills and Denies fever(s) Eyes: Eyes: Denies blurry vision ENT: Denies vertigo and Denies dizziness Cardiovascular: Cardiovascular: Denies chest pain and Denies dyspnea Respiratory: Respiratory: Denies cough and Denies dyspnea Gastrointestinal: Gastrointestinal: Denies abdominal pain, Denies nausea and Denies vomiting Genitourinary: Genitourinary: Denies hematuria and Denies difficulty voiding Musculoskeletal: Musculoskeletal: Reports back pain, Denies arthralgias, Denies joint swelling, Denies limited range of motion and Reports radiating pain into limb Integumentary/Breasts: Skin/Breast: Denies rash Neurologic: Denies vertigo and Denies dizziness [facility] Past Medical History Medical History (Updated 04/08/25 @ 23:02 by Kamari Verduzco) Pulmonary nodule Asthma-COPD overlap syndrome MARTÍN on CPAP Chest pain Tobacco dependence Chronic rhinitis Asthma PCOS (polycystic ovarian syndrome) Carpal tunnel syndrome Anxiety Vitamin D deficiency Infertility Depression Bipolar 2 disorder Asthma Sleep apnea Type 2 diabetes mellitus Surgical History Hx of wisdom tooth extraction Family History Family History Mother Diabetes Father No problems noted. Sister No problems noted. Brother No problems noted. Social History Social History (Updated 12/10/23 @ 15:22 by Margaret Briones LPN) Alcohol intake: never Patient Tobacco Use Status: Current everyday Tobacco user Tobacco use type: Cigarette Cigarette Packs Per Day: 2 Cigarettes Per Day: 20 Years Smoked: 29 Smoked in Last 30 Days: No Use of substances other than those prescribed or required for medical reasons: No Advance Directives: No Advance Directives Information Provided: No Patient : No Physical Exam ED Vital Signs: Vital Signs - 24 hr 04/08/25 17:03 04/08/25 23:31 04/08/25 23:32 Temperature 97.5 F 97.9 F 97.9 F Pulse Rate 82 81 81 Respiratory Rate 18 16 16 Blood Pressure 128/68 144/86 H 144/86 H Pulse Oximetry 96 98 98 Oxygen Delivery Method Room Air Room Air Room Air BMI result Body Mass Index 37.7 Const General: healthy appearing, comfortable, no acute distress, alert and awake Nutritional Appearance: well nourished Orientation/consciousness: patient oriented x3 HENMT Head: Yes normocephalic and Yes atraumatic Eyes Eyelids: Yes eyelids normal Conjunctivae: conjunctivae normal Sclerae: sclerae normal Corneas: corneas normal Pupils: Equal, round and reactive pupils present EOM: EOMs intact bilaterally Neck Neck: Yes full ROM Resp Other: Lungs are clear to auscultation, no crackles Effort & Inspection: normal respiratory effort, able to speak in complete sentences and not labored GI Inspection: No distended Palpation (GI): Soft to palpation, not firm, nontender, no guarding and not rigid Back/Spine/Pelvis Other: Mild right lumbar sacral tenderness. Straight leg raise is negative on the right. There was no vertebral tenderness, no step-offs or deformities. Skin General skin exam: no rashes or lesions noted and elasticity normal Neuro General: patient oriented x3 Cranial nerves: Yes Equal, round and reactive pupils present and Yes Bilaterally intact EOM present Cognition (Neuro): normal cognition Extrem Other: Moving all extremities well without any obvious deformities Course Course Course Narrative: 04/08/25 170 JALEN Florez This is a Rapid Medical Examination (RME) performed by Harish Lee PA-C in triage. Full HPI, ROS, assessment and treatment plan per primary provider in the Main ED. Hx: 50 yo F hx of asthma, MARTÍN on cpap, fibromyalgia here for eval of right kidney pain x2 days. pain worse w/ movement and deep breathing. no hx renal stones. no urinary sx. no injury/trauma. Plan: labs, UA, cxr Medications Administered Discontinued Medications Generic Name Dose Route Start Last Admin Trade Name Freq PRN Reason Stop Dose Admin Cyclobenzaprine HCl 10 mg 04/08/25 23:06 04/08/25 23:26 Cyclobenzaprine Hcl 10 Mg Tablet PO 04/08/25 23:07 10 mg ONCE ONE Administration Medical Decision Making Medical Decision Making MDM Narrative: 42-year-old female with a past medical history as above presents for evaluation of right lower back pain. Her pain is reproducible on exam, his most consistent musculoskeletal origin. She has no respiratory, GI or symptoms. Had labs that were significant for a slight leukocytosis with some abnormal lymphocytes and eosinophils as well as toxic vacuolization. However she has no bandemia, vital signs are stable, there is no fever, no evidence of infection, urinalysis is clear, the remainder of her labs are reassuring, chest x-ray shows possible mild CHF. The patient has no shortness of breath, no crackles on exam, no lower extremity edema, this can be followed up with her primary doctor. There was no evidence of obstructive uropathy, no blood no abdominal pain or tenderness on exam. The patient's Differential Diagnosis Differential Diagnoses: The differential diagnosis associated with the presentation includes Obstructive uropathy CHF Muscle strain Radiculopathy Sciatica Lab Data MDM Lab Attestation statement: I reviewed the patient's lab results. As above 04/08/25 17:11 04/08/25 17:12 Labs: Lab Results 04/08/25 04/08/25 04/08/25 Range/Units 17:11 17:12 22:34 WBC 11.9 H (4.8-10.8) X10*3/uL RBC 5.58 H (4.20-5.50) X10*6/uL Hgb 14.8 (12.0-16.0) g/dl Hct 45.2 (37.0-47.0) % MCV 81.0 (80.0-98.0) fL MCH 26.5 L (27.0-33.0) pg MCHC 32.7 (31.0-35.0) g/dl RDW 13.5 (11.0-16.0) % Plt Count 234 (160-400) X10*3/uL MPV 12.2 (9.4-12.3) fL Immature Gran % (Auto) Cancelled Neut % (Auto) Cancelled Lymph % (Auto) Cancelled [place] % (Auto) Cancelled Eos % (Auto) Cancelled Baso % (Auto) Cancelled Lymph # (Auto) Cancelled [place] # (Auto) Cancelled Eos # (Auto) Cancelled Baso # (Auto) Cancelled Abs Immat Gran (auto) Cancelled Absolute Neuts (auto) Cancelled Absolute Nucleated RBC 0.000 (0.0-0.012) X10*3/uL Nucleated RBC % (auto) 0.0 (0.0-0.2) /100WBC Neutrophils % (Manual) 59 (45-73) % Band Neutrophils % 0 L (3-5) % Lymphocytes % (Manual) 26 (20-40) % Atypical Lymphs % (Man) 8 H (0-6) % Monocytes % (Manual) 1 L (2-11) % Eosinophils % (Manual) 5 H (0-4) % Basophils % (Manual) 1 (0-2) % Abs Neuts (Manual) 7.0 (2.0-8.3) X10*3/uL Lymphocytes # (Manual) 3.1 (1.2-4.9) X10*3/uL Atyp Lymphs # (Manual) 1.0 x10*3/uL Monocytes # (Manual) 0.1 (0.1-1.2) X10*3/uL Eosinophils # (Manual) 0.6 H (0.0-0.4) X10*3/uL Basophils # (Manual) 0.1 (0.0-0.2) X10*3/uL Toxic Vacuolation PRESENT Platelet Estimate NORMAL (NORMAL) Plt Morphology Comment NORMAL RBC Morphology NOTED Microcytosis 1+ (5-14) /OIF Schistocytes 1+ (0-2) /OIF Sodium 138 (135-145) mmol/L Potassium 4.0 (3.3-5.1) mmol/L Chloride 105 (96-108) mmol/L Carbon Dioxide 25 (22-29) mmol/L Anion Gap 12 (12-20) BUN 15 (9-16) mg/dL Creatinine 0.59 (0.5-1.4) mg/dL Estim Creat Clear Calc 133.7 Estimated GFR > 60 Random Glucose 215 H (60-115) mg/dL Calcium 9.8 D (8.4-10.2) mg/dL Magnesium 2.0 (1.6-2.6) mg/dL Total Bilirubin 0.3 (0.0-1.0) mg/dL AST 22 (5-31) U/L ALT 22 (0-31) U/L Alkaline Phosphatase 70 (39-117) U/L B-Natriuretic Peptide 15 (<100) pg/mL Total Protein 7.1 (6.5-8.0) g/dL Albumin 3.8 (3.5-5.0) g/dL Lipase 34 (8-78) U/L Urine Color Yellow Urine Appearance Clear Urine pH 5.5 (5.0-9.0) Ur Specific [place] 1.010 (1.005-1.025) Urine Protein Negative (Neg-Trace) mg/dL Urine Glucose (UA) Negative (Negative) mg/dL Urine Ketones Negative (Negative) mg/dL Urine Blood Negative (Negative) Urine Nitrite Negative (Negative) Ur Leukocyte Esterase Negative (Negative) Independent Interpretation I performed an independent interpretation of an: Plain X-Ray Radiology Impression Discussion of test interpretation with radiology: I have reviewed the radiologist's reading. Radiologist Impression: Findings: Heart size is borderline enlarged. No consolidation, pleural effusion or pneumothorax. Mild bilateral interstitial prominence. No acute fracture. IMPRESSION: 1. Possible low-grade congestive heart failure. Otherwise no acute findings. This document has been electronically signed by: Tila Green MD on 04/08/2025 18:12:45 Discharge Plan Discharge Clinical Impression: Low back pain Patient Disposition: Home, Self-Care Instructions: Acute Low Back Pain (ED) Additional Instructions: Your white blood cell count was slightly higher than normal with some abnormal cells. This does not appear to be related to your back pain, but I recommend rechecking a complete blood count with your primary doctor in 1-2 weeks The remainder of your blood work was normal. Your urinalysis does not show signs of kidney stones or infections. Your pain is most likely related to muscle spasms. You may use ibuprofen/Tylenol for pain. You may use cyclobenzaprine for muscle spasms. This may make you drowsy, do not drink alcohol or drive after taking Prescriptions: New cyclobenzaprine 10 mg tablet 10 mg PO TID PRN (Reason: muscle spasm) Qty: 20 0RF No Action fluticasone propionate 50 mcg/actuation spray,suspension 2 spray intranasal DAILY Qty: 16 0RF cetirizine 10 mg tablet 10 mg PO DAILY PRN (Reason: for allergies) Qty: 90 0RF montelukast 10 mg tablet 10 mg PO BEDTIME Qty: 30 0RF albuterol sulfate 90 mcg/actuation HFA aerosol inhaler 2 inh inhalation Q6H PRN (Reason: shortness of breath or wheezing) 30 Days Qty: 18 12RF codeine-guaifenesin 10-100 mg/5 mL liquid 10 ml PO Q6H PRN (Reason: cough) 10 Days Qty: 300 0RF nicotine 21 mg/24 hr patch 24 hour 1 patch transdermal DAILY 28 Days Qty: 28 3RF bupropion HCl (smoking deter) 150 mg tablet extended release 12 hr 150 mg PO BID 30 Days Qty: 60 6RF cholecalciferol (vitamin D3) 125 mcg (5,000 unit) capsule 6,000 unit PO DAILY desvenlafaxine 50 mg tablet extended release 24 hr 50 mg PO DAILY [id number]-[id number] 50-325-40 mg tablet 1 tab PO Q6H PRN Latuda 40 mg tablet 40 mg PO DAILY Rx Instructions: must administer with food (at least 350 calories) hydroxyzine HCl 25 mg tablet 25 mg PO BID PRN (DME) nebulizers Misc See Rx Instructions .Route Rx Instructions: As directed Trulicity 4.5 mg/0.5 mL pen injector subcut insulin glargine [Lantus Solostar U-100 Insulin] 100 unit/mL (3 mL) insulin pen subcut insulin lispro 100 unit/mL solution subcut epinephrine 0.3 mg/0.3 mL auto-injector 0.3 mg IM ONCE PRN (Reason: anaphylaxis) prazosin 1 mg capsule 1 mg PO BEDTIME albuterol sulfate 2.5 mg /3 mL (0.083 %) solution for nebulization 2.5 mg inhalation ONCE Qty: 3 0RF gabapentin 300 mg capsule 300 mg PO TID Trelegy Ellipta 200-62.5-25 mcg blister with device 1 ea PO DAILY Qty: 60 3RF amoxicillin-pot clavulanate 875-125 mg tablet 1 tab PO BID 10 Days Qty: 20 0RF azithromycin 250 mg tablet 250 mg PO 3XW 28 Days Qty: 12 3RF Rx Instructions: Take 1 tablet on Wednesday/Wednesday/Wednesday roflumilast [Daliresp] 500 mcg tablet 500 mcg PO DAILY 30 Days Qty: 30 11RF prednisone 10 mg tablet See Rx Instructions PO DAILY 12 Days Qty: 42 0RF Rx Instructions: PO daily; Take 4 tabs x 3 days, then 3 tabs x 3 days, then 2 tabs daily x 3 days, then 1 tab x 3 days to complete. doxycycline hyclate 100 mg capsule 100 mg PO BID 10 Days Qty: 20 0RF albuterol sulfate 2.5 mg /3 mL (0.083 %) solution for nebulization 2.5 mg inhalation Q4-6H PRN (Reason: shortness of breath or wheezing) Qty: 180 3RF Interventions: ED Discharge Assessment Last Done: 04/08/25 23:32 Discharge Date/Time: 04/08/25 23:35 Print Language: [place]
[2025-04-08 17:03] VITALS: BP 128/68; PULSE 82; RESP 18; TEMP 36.4; O2SAT 96; BMI 37.7
--- OUTSIDE RECORDS SUMMARY | 2025-04-08 17:19 | XMS_ITS | Data Portability ---
Author Organization [place] - [facility], Allergy Address [address] [address] Assessment Encounter Date Assessment Date Assessment LastModified by Organization Details LastModified Time 12/29/2024 12/29/2024 49 year old female presents reporting one week of right-sided epistaxis that first started when she was vomiting. She has had 2-3 episodes this past week of less than 10 minutes of bleeding. Also reports some blood in the right ear. External auditory canals with no obstruction and no sign of bleeding. TMs intact. Middle ear spaces well aerated. Nasal examination today did not identify a prominent bleeding source to better explain their history of epistaxis. Recommend medical management with saline nasal spray 4-6 times daily, K-Y jelly at night, Afrin with episodes of bleeding. She will follow up in 1 month. If her symptoms persist she may benefit from nasal cautery at that time. Not available 12/31/2024 13:42:14 01/29/2025 01/29/2025 49 year old Mexican speaking female presents for follow up of right-sided epistaxis that first started when she was vomiting last month. She has had 2-3 episodes of less than 10 minutes of bleeding. No further nosebleeds in the past month. She also reported some blood in the right ear at the time of her nosebleeds. External auditory canals with no obstruction and no sign of bleeding. TMs intact. Middle ear spaces well aerated. Nasal examination today did not identify a prominent bleeding source to better explain their history of epistaxis. Recommend medical management with saline nasal spray 4-6 times daily, K-Y jelly at night, Afrin with episodes of bleeding. She will follow up as needed. I did issue her fluocinolone oil to use as needed for ear itching. Not available 01/29/2025 09:35:49 Plan of Treatment Reminders Order Date Submit Date Provider Last Modified By Organization Details Last Modified Time Details Appointments None recorded. Lab None recorded. Referral None recorded. Procedures None recorded. Surgeries None recorded. Imaging None recorded. Medication Orders fluocinolon e acetonide oil 0.01 % ear drops 2024 025 [id number], [address] [place], [place], [phone], 5 09:20:04 Patient TargetsNo targets recorded. Patient InstructionsNo instructions recorded. Reason for Referral None Reported. Problems Name Problem SNOMED Code Status Onset Date Resolution Date Notes Provider Name and Address Organization Details Recorded Time Bleeding from nose 611166992 Active 2022 Epistaxis ; Note: Date Diagnosed : 04/07/2023 12:31 PM (R04.0) Not Available [facility] 4 03:03:35 Otorrhagi a of bilateral ears 00722099245 25866 Active 2022 Otorrhagi a, bilateral ; Note: Date Diagnosed : 04/07/2023 12:31 PM (H92.23) Not Available [facility] 4 03:03:37 Abnormal auditory perceptio n 61598330 Active 2022 Other abnormal auditory perceptio ns, bilateral ; Note: Date Diagnosed : 04/07/2023 10:37 AM (H93.293) Not Available [facility] 4 03:03:35 Bilateral tinnitus 05844860449 02 Active 2022 Tinnitus, bilateral ; Note: Date Diagnosed : 06/21/2023 2:27 PM (H93.13) Not Available [facility] 4 03:03:35 Itching of ear 571757074 Active 2024 REY WHEATLEY PA-C [address] [place] [address],[facility] [address], [place], [address] , [facility] - [facility] 5 09:19:31 Problem Notes None recorded. Medical Equipment None Reported. Allergies Allergen ID Allergen Name Allergen Category Reaction Reaction Severity Criticality Documentation Date Start Date Code Code System Note Provider Name and Address Organization Details Recorded Time 021227 latex environme nt,medica tion other Not available Not available 04/04/2024 10141 91 RxNorm React ion: Unkno wn; Not Available [facility] 4 01:08:26 Medications Name Sig Start Date Stop Date Status Note LastModified by Organization Details LastModified Time accu-chek guide w/device ki active Not Available Not Available Not Available celecoxib 200 mg capsule active Not Available Not Available Not Available bupropion HCl SR 150 mg tablet,12 hr sustained- release TAKE 1 TABLET BY MOUTH TWICE DAILY active Not Available Not Available No t Available BD Alcohol Swabs active Not Available Not Available Not Available prednisone 10 mg tablet active Not Available Not Available Not Available doxycyclin e hyclate 100 mg capsule TAKE 1 CAPSULE BY MOUTH TWICE DAILY FOR 10 DAYS active Not Available Not Available No t Available atorvastat in 20 mg tablet active Not Available Not Available Not Available albuterol sulfate 2.5 mg/3 mL (0.083 %) solution for nebulizati on INHALE 1 VIAL VIA NEBULIZER EVERY 4 TO 6 HOURS NEEDED FOR SHORTNESS OF BREATH OR WHEEZING active Not Available Not Available No t Available oxybutynin chloride ER 10 mg tablet,ext ended release 24 hr TAKE 1 TABLET BY MOUTH DAILY active Not Available Not Available No t Available azithromyc in 250 mg tablet active Not Available Not Available Not Available miconazole nitrate 2 % topical cream APPLY TOPICALLY TO THE AFFECTED AREA TWICE DAILY active Not Available Not Available No t Available tizanidine 4 mg tablet TAKE 1 TABLET BY MOUTH EVERY 8 HOURS FOR 7 DAYS DIRECTED active Not Available Not Available No t Available fluconazol e 150 mg tablet TAKE 1 TABLET BY MOUTH 1 TIME active Not Available Not Available No t Available prazosin 1 mg capsule active Not Available Not Available N ot Available meloxicam 15 mg tablet TAKE 1 TABLET BY MOUTH EVERY DAY DIRECTED FOR 30 DAYS active Not Available Not Available No t Available FreeStyle Lancets 28 gauge active Medicatio n ID: [id number] Br and Name: FreeStyle Lancets S end Method: E-Prescri bed Subs Allowed: subs OK Medica tionGener icName: FreeStyle Lancets Not Available Not Available Not Available gabapentin 400 mg capsule active Not Available Not Available Not Available sertraline 100 mg tablet active Not Available Not Available Not Available acetaminop hen ER 650 mg tablet,ext ended release TAKE 2 TABLETS BY MOUTH EVERY 8 HOURS NEEDED FOR PAIN. DO NOT EXCEED 6 TABLETS/D AY NEEDED. active Not Available Not Available No t Available nicotine 21 mg/24 hr daily transderma l patch APPLY 1 PATCH ON THE SKIN DAILY active Not Available Not Available No t Available gabapentin 300 mg capsule active Not Available Not Available Not Available montelukas t 10 mg tablet TAKE 1 TABLET BY MOUTH AT BEDTIME active Not Available Not Available No t Available codeine 10 mg-guaifen esin 100 mg/5 mL oral liquid TAKE 10 ML BY MOUTH EVERY 6 HOURS NEEDED FOR COUGH FOR 10 DAYS active Not Available Not Available No t Available capsaicin 0.025 % topical cream active Medicatio n ID: [id number] Br and Name: capsaicin Send Method: E-Prescri bed Subs Allowed: subs OK Medica tionGener icName: capsaicin Not Available Not Available Not Available mirtazapin e 15 mg tablet active Not Available Not Available Not Available gabapentin 100 mg capsule active Medicatio n ID: [id number] Br and Name: gabapenti n Send Method: E-Prescri bed Subs Allowed: subs OK Medica tionGener icName: gabapenti n Not Available Not Available Not Available insulin lispro (U-100) 100 unit/mL subcutaneo us solution active Not Available Not Available Not Available methylpred nisolone 4 mg tablets in a dose pack FOLLOW PACKAGE DIRECTION S active Not Available Not Available No t Available clotrimazo le 1 % topical cream active Medicatio n ID: [id number] Br and Name: clotrimaz ole Send Method: E-Prescri bed Subs Allowed: subs OK Medica tionGener icName: clotrimaz ole Not Available Not Available Not Available sertraline 50 mg tablet active Not Available Not Available Not Available prazosin 2 mg capsule active Not Available Not Available N ot Available amoxicilli n 875 mg-potassi um clavulanat e 125 mg tablet TAKE 1 TABLET BY MOUTH TWICE DAILY FOR 10 DAYS active Not Available Not Available No t Available Ventolin HFA 90 mcg/actuat ion aerosol inhaler INHALE 2 PUFFS BY MOUTH EVERY 6 HOURS NEEDED FOR SHORTNESS OF BREATH OR WHEEZING active Not Available Not Available No t Available oxycodone 5 mg tablet TAKE 1 TABLET BY MOUTH EVERY 6 HOURS NEEDED FOR PAIN active Not Available Not Available No t Available zonisamide 25 mg capsule active Medicatio n ID: [id number] Br and Name: zonisamid e Send Method: E-Prescri bed Subs Allowed: subs OK Medica tionGener icName: zonisamid e Not Available Not Available Not Available zonisamide 50 mg capsule TAKE 2 CAPSULES BY MOUTH DAILY AT BEDTIME active Not Available Not Available No t Available duloxetine 30 mg capsule,de layed release TAKE 1 CAPSULE BY MOUTH DAILY active Not Available Not Available No t Available DermOtic Oil 0.01 % ear drops INSTILL 5 DROPS TO AFFECTED EAR TWICE DAILY active Not Available Not Available No t Available Lantus Solostar U-100 Insulin 100 unit/mL (3 mL) subcutaneo us pen TAKE 45 UNITS SUBCUTANE OUS INJECTION DAILY AT BEDTIME. TO BE USED IF PUMP FAILURE active Not Available Not Available No t Available diclofenac 1 % topical gel active Medicatio n ID: [id number] Br and Name: diclofena c sodium Se nd Method: E-Prescri bed Subs Allowed: subs OK Medica tionGener icName: diclofena c sodium Not Available Not Available Not Available diclofenac 1.5 % topical drops active Medicatio n ID: [id number] Br and Name: diclofena c sodium Se nd Method: E-Prescri bed Subs Allowed: subs OK Specia l Instructi on: APPLY 40 DROPS TOPICALLY TO THE AFFECTED AREA FOUR TIMES DAILY Med icationGe nericName : diclofena c sodium Not Available Not Available Not Available lurasidone 40 mg tablet active Not Available Not Available Not Available roflumilas t 500 mcg tablet TAKE 1 TABLET BY MOUTH DAILY active Not Available Not Available No t Available lurasidone 60 mg tablet active Not Available Not Available Not Available Trulicity 1.5 mg/0.5 mL subcutaneo us pen injector active Not Available Not Available Not Available Trulicity 0.75 mg/0.5 mL subcutaneo us pen injector active Not Available Not Available Not Available Accu-Chek Guide test strips active Not Available Not Available Not Available roflumilas t 250 mcg tablet TAKE 1 TABLET BY MOUTH DAILY active Not Available Not Available No t Available Accu-Chek Fastclix Lancet Drum active Medicatio n ID: [id number] Br and Name: Accu-Chek Fastclix Lancet Drum Send Method: E-Prescri bed Subs Allowed: subs OK Medica tionGener icName: Accu-Chek Fastclix Lancet Drum Not Available Not Available Not Available FreeStyle Davi 14 Day Sensor kit active Not Available Not Available Not Available FreeStyle Davi [address] [place] USE TO MONITOR BLOOD SUGAR active Not Available Not Available No t Available Trulicity 3 mg/0.5 mL subcutaneo us pen injector active Not Available Not Available Not Available Trulicity 4.5 mg/0.5 mL subcutaneo us pen injector active Medicatio n ID: [id number] Br and Name: Trulicity Send Method: E-Prescri bed Subs Allowed: subs OK Medica tionGener icName: Trulicity Not Available Not Available Not Available Trelegy Ellipta 200 mcg-62.5 mcg-25 mcg powder for inhalation INHALE 1 PUFF BY MOUTH DAILY active Not Available Not Available No t Available BinaxNOW COVID-19 Ag Self Test kit TEST DIRECTED TODAY active Not Available Not Available No t Available Vitals Date Recorded Body height Body mass index (BMI) Body weight Provider Name and Address Organization Details Last Updated DateTime 01/29/2025 162.56 cm 36.9 kg/m2 33691.36 g Virginia Ho [place] - [facility] 01/29/2025 08:44:18 Date Recorded Body height Body mass index (BMI) Body weight Provider Name and Address Organization Details Last Updated DateTime 12/29/2024 162.56 cm 36.9 kg/m2 76642.36 g Alicia Dunham [place] - [facility] 12/29/2024 15:23:55 Social History None recorded. Functional Status None recorded. Mental Status None recorded. Family History Nothing Reported. Medical History No medical history recorded. Gynecological HistoryNo gynecological history recorded. Obstetrics History GPAL:G 0 P 0 0 0 0 Past Encounters Encounter ID Performer Location Encounter Start Date Encounter Closed Date Diagnosis/Indication Diagnosis SNOMED-CT Code Diagnosis ICD10 Code Diagnosis Note [id number] REY WHEATLEY PA-C [facility] on [address] [place] [id number] 12/29/2024 14:35:20 12/29/2024 15:38:31 Bleeding from nose 676184391 R04.0 Otorrhagia of bilateral ears 8754782077 423870 H92.23 [id number] REY WHEATLEY PA-C [facility] on [address] [place] [address] 01/29/2025 08:40:30 01/29/2025 09:21:14 Itching of ear 051619208 L29.81 Bleeding from nose 44351 6005 R04.0 Otorrhagia of bilateral ears 5292308642 306399 H92.23 Health Concerns Section Related Observation LastModified by Organization Detai ls LastModified Time None Recorded Concern Status LastModified by Organization Details LastModified Time None Recorded Advance Directives Directive None Recorded Payers Insurance Date Sequence Insurance Name Policy Number Policy Eric Covered Member ID Eric Member ID Guarantor Name 01/31/2025 1 [facility] [id number] Susan Alfonso [id number] Susan Alfonso Notes Date Note Type Note Provider Name and Address Organization Details Recorded Time 12/29/2024 text/html 49 year old Mexican speaking female presents reporting epistaxis that started 1 week ago. She reports 2 or 3 nosebleeds in the past week that stop within 10 minutes. The initially nosebleed was provoked with vomiting. She is not on anticoagulants. The nosebleeds have been right-sided. She also reports that the right ear bleeds sometimes at the same time as the nose. She feels something crawling in the ear at night that bothers her. Upon further questioning she denies beth bleeding from the ears. She reports some blood on the qtip. 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 HALEY SANDOVAL MD [address] [place] [address],[address], [address], [facility] - [facility] 01/01/2025 19:43:47 01/29/2025 text/html 49 year old Mexican speaking female presents for follow up of her ears and nose. Since her visit last month she has had no nosebleeds or bleeding from the ears. She has been using nasal saline and gel in the nose. She does complain of some itching in the ears. HALEY SANDOVAL MD [address] [place] [address],[address], [address], [facility] - [facility] 01/29/2025 09:40:28 OBGyn Episode No OBEpisode recorded.
--- OUTSIDE RECORDS SUMMARY | 2025-04-08 17:19 | XMS_ITS | Clinical Summary ---
Author Organization [facility] Address [address] [place] [address] Care Team Providers Care Ear Nose Throat Physician Name Role Phone Gaston Canada LAP GRINDER-C Primary Care Provider [phone] Source Comments PLEASE NOTE, if this patient is a minor, it may be UNLAWFUL to discuss sensitive information that is contained in these records (such as FAMILY PLANNING, MENTAL HEALTH or SUBSTANCE ABUSE) with the minor patient's parent or other person without the patient's specific authorization.[facility] Allergies Active Allergy Reactions Criticality Noted Date Comments Shrimp Other (See Comments) 07/11/2019 tachycardia Medications nebulizer accessoriesIndica tions:Moderate persistent asthma, unspecified whether complicated (HHS-HCC) Susan Alfonso is a 42 year old female with moderate persistent asthma. QID PRN 1 Device 02/09/20 18 Active nebulizer and compressorIndicat ions:Moderate persistent asthma, unspecified whether complicated (HHS-HCC) Susan Alfonso is a 42 year old female with moderate persistent asthma. QID PRN 1 Each 02/09/20 18 Active inhalational spacing deviceIndications :Severe persistent asthma, unspecified whether complicated (HCC-CMS) Use as directed 1 Inhaler 09/28/20 19 Active miscellaneous medical supply miscIndications:B ilateral carpal tunnel syndrome by miscellaneous route as needed (hand pain) Wear bilateral hand/wrist splints daily for hand pain/numbness. Dx: G56.03 LOS: 11 2 Each 12/12/19 20 Active clomiPHENE citrate (CLOMID) 50 mg tablet TK 1 T PO D 12/11/19 20 Active BD ALCOHOL SWABS 02/14/20 21 Active insulin glargine (LANTUS SOLOSTAR U-100 INSULIN) 100 unit/mL (3 mL)Indications:Un controlled type 2 diabetes mellitus with hyperglycemia ([facility]) Inject 70 Units into the skin nightly at bedtime PRESCRIBED BY ENDOCRINOLOGY 15 mL 07/25/20 21 Active norethindrone, contraceptive, (MICRONOR) 0.35 mg tabletIndications :Uses control TK 1 T PO D. PRESCRIBED BY [facility] 30 Tablet 07/25/20 21 Active mwrjpqti-chnp-YR- calcium-mins (THEREMS-M) 9 mg iron-400 mcg tabIndications:vi tamin deficiency Take 1 Tablet by mouth once daily Indications: vitamin deficiency 90 Tablet 1 07/25/20 21 Active atorvastatin (LIPITOR) 20 mg tabletIndications :Type 2 diabetes mellitus without complication, without long-term current use of insulin ([facility]) TAKE 1 TABLET BY MOUTH EVERY DAY 90 Tablet 1 08/25/20 21 Active TRULICITY 3 mg/0.5 mL pen injector Pres[facility] [place] [facility] 01/24/20 22 Active TRELEGY ELLIPTA 200-62.5-25 mcg dsdv [place] [facility] 02/13/20 22 Active montelukast (SINGULAIR) 10 mg tablet Take 10 mg by mouth nightly at bedtime Prescribed by pulmonary at [facility] 02/13/20 22 Active topiramate (TOPAMAX) 50 mg tabletIndications :Chronic pain Take 1 Tablet by mouth nightly at bedtime Indications: Chronic pain 90 Tablet 1 03/17/20 22 Active diclofenac sodium (VOLTAREN) 1 % gelIndications:Ch ronic daily headache Apply topically 2 (two) times daily TO PAINFUL JOINTS PRN 100 g 5 03/17/20 22 Active acetaminophen (TYLENOL) 500 mg tabletIndications :Chronic daily headache Take 2 Tablets by mouth every 6 to 8 (six to eight) hours as needed for pain or fever (headaches) 90 Tablet 2 03/17/20 22 Active VITAMIN D3 25 mcg (1,000 unit) capsuleIndication s:Vitamin D deficiency TAKE 1 CAPSULE BY MOUTH DAILY 90 Capsule 1 04/26/20 22 Active hydrOXYzine pamoate (VISTARIL) 25 mg capsule Take 1 Capsule by mouth 3 (three) times daily as needed for anxiety 90 Capsule 2 07/16/20 22 Active lurasidone (LATUDA) 40 mg tablet Take 1 tab orally every evening with food 30 Tablet 2 07/16/20 22 Active Active Problems Problem Noted Date Diagnosed Date Uncontrolled type 2 diabetes mellitus with hyperglycemia ([facility])- followed by [facility] 04/03/2021 Wears glasses 02/27/2021 Chronic obstructive pulmonar y disease, unspecified COPD type ([facility]) 02/27/2021 MARTÍN on CPAP 01/06/2021 Obesity, Class II, BMI 35-39.9 11/22/2020 Overview (06/06/2021): Followed by [facility] ([place]) Bipolar 2 disorder ([facility]) 06/17/2020 Borderline personality disorder ([facility]) 2019 PCOS (polycystic ovarian syndrome) 05/02/2020 Overview (05/02/2020): Followed by [facility] Chronic neck and back pain 07/20/2019 Vitamin D deficiency 06/04/2019 Severe persistent asthma ([facility]) 05/31/2019 Chronic post-traumatic headache, not intractable 01/12/2019 Psychophysiological insomnia 12/30/2018 Moderate episode of recurren t major depressive disorder ([facility]) 12/30/2018 Presbyopia 06/02/2018 Overview (06/02/2018): 05/06/18 New spectacle Rx given. Dysmenorrhea 05/18/2018 Overview (05/18/2018): Painful irregular periods/sharp cramping Smoking 04/08/2018 Resolved Problems Problem Noted Date Diagnosed Date Resolved Date 'Nhfsg-bdk-tlphm' wit h signs of malnutrition ([facility]) 06/13/2019 11/01/2020 BMI 40.0-44.9, adult ([facility]) 05/31/2019 02/27/2021 RUQ pain 05/31/2019 11/01/2020 Panic attacks 12/30/2018 12/08/2019 Pain in left lower leg 04/22/201811/01 Plantar wart of left foot 04/22/2018 Prediabetes 04/08/2018 05/31/2019 Immunizations Immunization Administration Dates Next Due Flu, Preservative Free 09/28/2019,10/07/2018, INFLUENZA, SEASONAL, INJECTABLE 09/28/2019 PFIZER COVID VACCINE, PURPLE CAP, 12+ 03/25/2021 ,03/04/2021 PPD 07/12/2018 TDAP 05/31/2019 Social History Tobacco Use Types Packs/Day Years Used Date Smoking Tobacco: Heavy Smoker Cigarettes 0.5 33.4 Started: 1991 Smokeless Tobacco: Never Tobacco Cessation:Ready to Q uit: No Comments:1 pack per day Alcohol Use Standard Drinks/Week Comments No 0 (1 standard drink = 0.6 oz pur e alcohol) Social Connections Answer Date Recorded Connectedness 0 12/01/2019 Financial Resource Strain Answer Date R ecorded Financial Resource Strain 0 2019 Stress Answer Date Recorded Stress 0 12/01/2019 Physical Activity Answer Date Recorded Physical Activity 0 12/01/2019 Food Insecurity Answer Date Recorded Food 0 12/01/2019 Transportation Needs Answer Date Record ed Transportation 0 12/01/2019 Housing Stability Answer Date Recorded Housing 0 12/01/2019 Safety and Environment Answer Date Vinicius rded Safety 0 03/17/2022 Utilities Answer Date Recorded Utilities 0 12/01/2019 Employment Answer Date Recorded Stress 0 12/01/2019 Comments No Sex and Gender Information Value Date Recorded Sex Assigned at Female 12/07/2017 11:32 AM PST Legal Sex Female 8:53 AM PST Gender Identity Female 12/07/2017 11:32 AM PST Sexual Orientation Straight 12/30/2018 12 :08 PM PST Last Filed Vital Signs Vital Sign Reading Time Taken Comments Blood Pressure 129/81 07/25/2021 3:45 PM EDT Pulse 84 07/25/2021 3:45 PM EDT Temperature 36.8 ??C (98.2 ??F) 07/25/2021 3:45 PM ED T Respiratory Rate 16 07/25/2021 3:45 PM EDT Oxygen Saturation 97% 07/22/2021 1:14 PM EDT Inhaled Oxygen Concentration - - Weight 99.8 kg (220 lb) 07/25/2021 3:45 PM EDT Height 160 cm (5' 3 ) 07/25/2021 3:45 PM EDT Body Mass Index 38.97 07/25/2021 3:45 PM EDT Plan of Treatment Health Maintenance Due Date Last Done Comments Anxiety Screening 1977 Dental Examination 1977 HPV Screening 1977 Tobacco Screening 1977 Retinopathy Screening 1990 Imm-Pneumococcal (1 of 2 - PCV) 1996 Breast Cancer Screening (Mammogram) 06/21/2021 06/21/2019, 06/21/2019, 01/26/2018 Urine Albumin Creatinine Rat io Screening 11/05/2021 11/05/2020 Annual Preventive Care Visit 02/27/202206/2021, 11/01/2020, 05/31/2019, Additional history exists Diabetes Foot Exam 02/27/2022 02/27/2021 Tobacco Cessation Counseling (#1) 02/27/2022 CT Colonography 2022 Colonoscopy 2022 Colorectal Cancer Screening 2022 FIT/gFOBT 2022 Fecal DNA 2022 Flexible Sigmoidoscopy 2022 Depression Monitoring 06/16/2022 03/17/2022 , 02/27/2021, 11/01/2020, Additional history exists Hypertension Screening (#1) 07/25/2022 Diabetes HbA1c 08/16/2022 02/13/2022, 03/22, 11/05/2020, Additional history exists Lipid Screening 02/13/2023 02/13/2022, 03/22, 11/05/2020, Additional history exists Serum Creatinine 02/13/2023 02/13/2022, 10/2021, 11/05/2020, Additional history exists Relationship Safety Screening/Counseling 03/17/2023 03/17/2022, 11/01/2020, 05/31/2019 Pap Smear 07/22/2024 07/22/2021, 05/23 (Managed by Outside Provider) [id number] ( season) 2024 021, 03/04/2021 Imm-Influenza (#1) 2024 09/28/2019, 1 11/28/2018, 10/07/2018, Additional history exists Alcohol and Drug Screen 11/22/2024 03/17/20 22, 02/27/2021, 11/01/2020, Additional history exists Cervical Cancer Screening 07/22/2026 Pap + HPV 07/22/2026 07/22/2021 Imm-DTaP/Tdap/Td (2 - Td or Tdap) 05/31/2029 019 HIV Screening Completed 04/11/2018 Hepatitis C Screening Completed 04/11/2018 Cervical Ablation/Cold-Knife Conization Discontinued Cervical Cryotherapy Discontinued Colposcopy Discontinued Endometrial Biopsy Discontinued Excision/Leep Discontinued HPV Genotyping Discontinued Vaginal Pap Discontinued Vulvoscopy Discontinued Goals Goal Patient Goal Type Associated Problems Recent Progress Patient-Stated? Author Diabetes Management: Nutrition # 2 Diet Yes Mynor Lindsey RN Note: Patient will reduce sugary drinks to 8oz a day, and increase her water daily intake to 64oz for the next 6 months. 2. Patient will eat healthy diet low in carbs and fat for the next 6 months. Increase Physical Activity: # 3 Exercise Yes Mynor Lindsey RN Note: Patient will exercise or walk 4 times a week for 20 minutes for the next 6 months. Manage Stress, Depression, Anxiety: # 4 General No Mynor Lindsey RN Note: Patient will attend all appointments for the next 6 months. Patient will take all medications as prescribed for the next 6 months. Cigarette Cessation: # 4 Smoking Yes Mynor Lindsey RN Note: Patient will keep cigarettes smoking to a 1/4 pack a day for the next 6 months. Patient will use Nicotine Patch/Gum to help her with smoke cessation for the next 6 months. Procedures Procedure Name Priority Date/Time Associated Diagnosis Comments COMPREHENSIVE METABOLIC PANEL Routine 02/13/2022 9:01 AM EDT Bipolar 2 disorder ([facility]) LIPID PANEL Routine 02/13/2022 9:01 AM EDT Bipolar 2 disorder ([facility]) HEMOGLOBIN GLYCOSYLATED A1C Routine 02/13/2022 9:01 AM EDT Bipolar 2 disorder ([facility]) THINPREP PAP & HPV MRNA E6/E7 RFLX HPV 16,18/[address]/NG Routine 07/22/2021 1:35 PM EDT Encounter for cervical Pap smear with pelvic exam MICROALBUMIN/CREATININ E RATIO, URINE, RANDOM Routine 11/05/2020 10:12 AM EST Type 2 diabetes mellitus without complication, without long-term current use of insulin ([facility]) HISTORIC MAMMOGRAM 06/21/2019 3: 00 AM EDT ANTIBODY HIV-1&HIV-2 SINGLE RESULT Routine 04/11/2018 8:55 AM EDT Routine adult health maintenance HEPATITIS C ANTIBODY Routine 04/11/2018 8:55 AM EDT Routine adult health maintenance from Last 3 Months or Most Recently Relevant to Health Maintenance Results * (ABNORMAL) HEMOGLOBIN, GLYCOSYLATED (A1C) (02/13/2022 9:01 AM EDT) HEMOGLOBIN A1C 9.6(H) <5.7 % of total Hgb [employer] Comment: For someone without known diabetes, a hemoglobin A1c value of 6.5% or greater indicates that they may have diabetes and this should be confirmed with a follow-up test. For someone with known diabetes, a value <7% indicates that their diabetes is well controlled and a value greater than or equal to 7% indicates suboptimal control. A1c targets should be individualized based on duration of diabetes, age, comorbid conditions, and other considerations. Currently, no consensus exists regarding use of hemoglobin A1c for diagnosis of diabetes for children. ?? Blood Blood / Unknown 02/13/2022 9 :01 AM EDT 02/13/2022 9:02 AM EDT Narrative [employer] - 02/13/2022 9:01 PM EDT FASTING:YES Tiara Silver APRN LAB - BLOOD DRAW Edited Result - Final Performing Organization Address City/[facility]/ZIP Co de Phone Number [facility] [address] [address], [facility] [address],[place] [address] * (ABNORMAL) LIPID PANEL (02/13/2022 9:01 AM EDT) [facility] Signature CHOLESTEROL, TOTAL 115 <200 mg/dL [facility] HDL CHOLESTEROL 40(L) > OR = 50 mg/dL [facility] TRIGLYCERIDES 75 <150 mg/dL [facility] LDL-CHOLESTEROL 59 99 mg/dL (calc) [facility] Comment: Reference range: <100 Desirable range <100 mg/dL for primary prevention; ?? <70 mg/dL for patients with CHD or diabetic patients with > or = 2 CHD risk factors. LDL-C is now calculated using the Sindhu calculation, which is a validated novel method providing better accuracy than the Friedewald equation in the estimation of LDL-C. Jeancarlos CARTER et al. AUDRA. 2013;310(19): 7438-4653 (http://education.SiTime/faq/HTT275) CHOL/HDLC RATIO 2.9 <5.0 (calc) [facility] NON-HDL CHOLESTEROL 75 <130 mg/dL (calc) [facility] Comment: For patients with diabetes plus 1 major ASCVD risk factor, treating to a non-HDL-C goal of <100 mg/dL (LDL-C of <70 mg/dL) is considered a therapeutic option. Blood Blood / Unknown 02/13/2022 9 :01 AM EDT 02/13/2022 9:02 AM EDT Narrative [facility] - 02/13/2022 9:01 PM EDT FASTING:YES us Tiara Silver APRN LAB - BLOOD DRAW Final Result Performing Organization Address City/[facility]/ZIP Co de Phone Number [facility] [address] [address], [facility] [address] [address] * (ABNORMAL) COMPREHENSIVE METABOLIC PANEL (02/13/2022 9:01 AM EDT) GLUCOSE 280(H) 65 - 99 mg/dL [facility] Comment: ?Fasting reference interval For someone without known diabetes, a glucose value >125 mg/dL indicates that they may have diabetes and this should be confirmed with a follow-up test. UREA NITROGEN (BUN) 11 7 - 25 mg/dL [facility] CREATININE (blood) 0.61 0.50 - 1.10 mg/dL [facility] GFR ESTIMATED 110 > OR = 60 mL/min/1 .73m2 [facility] EGFR 128 > OR = 60 mL/min/1 .73m2 [facility] BUN/CREATININE RATIO NOT APPLICABLE 6 - 22 [facility] SODIUM 136 135 - 146 mmol/L [facility] POTASSIUM 4.2 3.5 - 5.3 mmol/L [facility] CHLORIDE 101 98 - 110 mmol/L [facility] CARBON DIOXIDE 29 20 - 32 mmol/L [facility] CALCIUM 9.4 8.6 - 10.2 mg/dL [facility] PROTEIN, TOTAL 7.0 6.1 - 8.1 g/dL [facility] ALBUMIN 3.9 3.6 - 5.1 g/dL [facility] GLOBULIN 3.1 1.9 - 3.7 g/dL (calc) [facility] ALBUMIN/GLOBUL IN RATIO 1.3 1.0 - 2.5 (calc) [facility] BILIRUBIN, TOTAL 0.4 0.2 - 1.2 mg/dL [facility] ALKALINE PHOSPHATASE 82 31 - 125 U/L [facility] AST 12 10 - 30 U/L [facility] ALT 16 6 - 29 U/L [facility] Blood Blood / Unknown 02/13/2022 9 :01 AM EDT 02/13/2022 9:02 AM EDT Narrative [employer] [facility] - 02/13/2022 9:01 PM EDT FASTING:YES Tiara Silver APRN LAB - BLOOD DRAW Edited Result - Final [employer] [address] [address], [facility] [address] [address] * THINPREP PAP & HPV MRNA E6/E7 RFLX HPV 16,18/[address]/NG (07/22/2021 1:35 PM EDT) CHLAMYDIA TRACHOMATIS RNA, TMA NOT DETECTED NOT DETECTED [facility] NEISSERIA GONORRHOEAE RNA, TMA NOT DETECTED NOT DETECTED [facility] COMMENT [employer] [facility] CLINICAL INFORMATION See Note [facility] Comment:ROUTINE EXAM LMP See Note [employer] [facility] Comment:NONE GIVEN PREV. PAP See Note [employer] Comment:NONE GIVEN PREV. BX See Note [employer] Comment:NONE GIVEN SOURCE See Note [employer] Comment:Cervix STATEMENT OF ADEQUACY See Note [employer] [facility] Comment: Satisfactory for evaluation. Endocervical/transformation zone component absent. INTERPRETATION/RESU LT See Note [employer] Comment:Negative for intraep ithelial lesion or malignancy. SCIENCE PROFESSOR See Note [facility] [employer] [facility] Comment: DMM, CT(ASCP) CT screening location: [address] ??[address] COMMENT [employer] HPV MRNA E6/E7 Not Detected Not Detected [employer] Comment: Methodology: [employer] Sales Engineer-Mediated Amplification This assay detects E6/E7 viral messenger RNA (mRNA) from 14 high-risk HPV types (16,18,31,33,35,39,45,51,52,56,58,59,66,68). The analytical performance characteristics of this assay have been determined by [employer]. The modifications have not been cleared or approved by the FDA. This assay has been validated pursuant to the CLIA regulations and is used for clinical purposes. For additional information, please refer to http://education.[employer]/faq/CAB841z7 (This link if provided for information/ educational purposes only.) CYTOLOGY Cervix uteri structure / Unknown 07/22/2021 1:35 PM EDT 07/23/2021 6:22 AM EDT Narrative [employer] - 07/24/2021 1:46 PM EDT EXPLANATORY NOTE: The Pap is a screening test for cervical cancer. It is not a diagnostic test and is subject to false negative and false positive results. It is most reliable when a satisfactory sample, regularly obtained, is submitted with relevant clinical findings and history, and when the Pap result is evaluated along with historic and current clinical information. The analytical performance characteristics of this assay, when used to test SurePath(TM) specimens have been determined by [employer]. The modifications have not been cleared or approved by the FDA. This assay has been validated pursuant to the CLIA regulations and is used for clinical purposes. For additional information, please refer to https://education.[employer]/faq/MWF823 (This link is being provided for information/ educational purposes only.) Zach RAO LAB - NO BLOOD DRAW Final Resu lt Performing Organization Address City/[facility]/ZIP Co de Phone Number [facility] [address] [address], [facility] [address] [address] * (ABNORMAL) MICROALBUMIN/CREATININE RATIO, URINE, RANDOM (11/05/2020 10:12 AM EST) MICROALBUMIN, RANDOM 66.6(H) 0.0 - 29.0 mg/L [facility] MICROALB/CRE RATIO RANDOM 18.1 0.0 - 30.0 mg/G [facility] CREATININE, RANDOM URINE 367 mg/dL [facility] 11/05/2020 10:1 2 AM EST 11/05/2020 10:35 AM EST N[facility]ative [facility] - 11/05/2020 1:51 PM EST [employer] [address] Crutch Maker - Wilma York MD PT ID [id number] ORD# [id number] Sydni WEISS LAB - NO BLOOD DRAW Final Result Performing Organization Address City/[facility]/ZIP Co de Phone Number [address] [place] [address], * HISTORIC MAMMOGRAM (06/21/2019 3:00 AM EDT) 06/21/2019 3:00 AM EDT Babita Lau PA-C IMG MAMMO Final Result * HEPATITIS C ANTIBODY (04/11/2018 8:55 AM EDT) HEPATITIS C VIRUS SCREEN NEGATIVE NEGATIVE [facility] Blood specimen (specimen) Blood / Unknown 04/11/2018 8:55 AM EDT 04/11/2018 9:20 AM EDT [facility] - 04/11/2018 1:08 PM EDT [facility] [employer] [address] [place] [address] PT ID [id number] ORD# [id number] Rosita Otto NP LAB - BLOOD DRAW Final Result [address] [address], * HIV-1 & HIV-2 ANTIBODIES (04/11/2018 8:55 AM EDT) HIV 1 AND 2 ANTIBODY SCREEN NEGATIVE NEGATIVE [facility] Comment: This assay is a 4th generation assay allowing for earlier detection of HIV infection by detecting the presence of the HIV-1 p24 antigen as well as the traditional antibodies to HIV type 1 (including group O) and type 2. ??Use of a 4th generation assay is the current CDC recommendation for HIV screening. Blood specimen (specimen) Blood / Unknown 04/11/2018 8:55 AM EDT 04/11/2018 9:20 AM EDT [facility] - 04/11/2018 1:08 PM EDT [employer] [address] [place] [address] PT ID [id number] ORD# [id number] us Rosita Otto B[employer] FIDDLE PLAYER LAB - BLOOD DRAW Final Result [facility] [address] [place] [address], from Last 3 Months or Most Recently Relevant to Health Maintenance Insurance [facility] Care Teams Ear Nose Throat Physician Relationship Specialty Start Date End Date Gaston Canada FNP-C [address] [place] [address] PCP - General Internal Medicine 11/30/23
[2025-04-08 17:20] LABS: Hematocrit 45.2 % (37.0-47.0); Hemoglobin 14.8 g/dl (12.0-16.0); Mean Corpuscular HGB Conc 32.7 g/dl (31.0-35.0); Mean Corpuscular Hemoglobin 26.5 pg (27.0-33.0); Mean Platelet Volume 12.2 fL (9.4-12.3); Platelet Count 234 X10*3/uL (160-400); Red Blood Count 5.58 X10*6/uL (4.20-5.50); Red Cell Distribution Width 13.5 % (11.0-16.0)
[2025-04-08 17:43] LABS: WBC ABN SCTR FOR CBC 1
[2025-04-08 17:48] LABS: Alanine Aminotransferase 22 U/L (0-31); Albumin Level 3.8 g/dL (3.5-5.0); Alkaline Phosphatase 70 U/L (39-117); Anion Gap 12 (12-20); Aspartate Amino Transferase 22 U/L (5-31); Bilirubin Total 0.3 mg/dL (0.0-1.0); Blood Urea Nitrogen 15 mg/dL (9-16); Calcium 9.8 mg/dL (8.4-10.2); Carbon Dioxide 25 mmol/L (22-29); Chloride 105 mmol/L (96-108); Creatinine Clr Calc Pharmacy 133.7; Estimated Glomerular Filt Rate > 60; Glucose Random 215 mg/dL (60-115); Lipase 34 U/L (8-78); Sodium 138 mmol/L (135-145); Total Protein 7.1 g/dL (6.5-8.0)
[2025-04-08 17:54] LABS: Atypical Lymphs Percent Manual 8 % (0-6); Basophils Percent Manual 1 % (0-2); Eosinophils Percent Manual 5 % (0-4); Lymphocytes Percent Manual 26 % (20-40); Monocytes Percent Manual 1 % (2-11); Neutrophils Percent Manual 59 % (45-73)
[2025-04-08 17:56] LABS: RBC Morphology NOTED
[2025-04-08 17:57] LABS: Microcytosis 1+ (5-14) /OIF; Platelet Estimate NORMAL (NORMAL); Platelet Morphology Comment NORMAL; Schistocytes 1+ (0-2) /OIF
[2025-04-08 18:00] LABS: Toxic Vacuolation PRESENT
[2025-04-08 18:03] LABS: Basophils Abs Manual 0.1 X10*3/uL (0.0-0.2); Eosinophils Absolute Manual 0.6 X10*3/uL (0.0-0.4); Lymphocytes Absolute Manual 3.1 X10*3/uL (1.2-4.9); Monocytes Absolute Manual 0.1 X10*3/uL (0.1-1.2); White Blood Count 11.9 X10*3/uL (4.8-10.8)
[2025-04-08 18:04] LABS: Band Neutrophils Percent 0 % (3-5)
[2025-04-08 21:21] LABS: B Type Natriuretic Peptide 15 pg/mL (<100)
[2025-04-08 22:42] LABS: Appearance Urine Clear; Color Urine Yellow; Glucose Urine UA Negative (Negative); Leukocyte Esterase Urine Negative (Negative); Nitrite Urine Negative (Negative); PH 5.5 (5.0-9.0); Urine Blood Negative (Negative); Urine Ketones Negative (Negative); Urine Protein Negative (Neg-Trace)
[2025-04-08] MEDS: Cyclobenzaprine HCl 10 MG TABLET PO (23:26)
[2025-04-08 23:31] VITALS: BP 144/86; PULSE 81; RESP 16; TEMP 36.6; O2SAT 98
[2025-04-08 23:32] VITALS: BP 144/86; PULSE 81; RESP 16; TEMP 36.6; O2SAT 98
== END 2025-04-08 23:35 | disposition home or self-care (01) ==
PROVIDERS: Physician Assistant Medical; Emergency Provider Emergency Medicine Emergency Medical Services; PCP Pediatrics
DX: M54.50 Low back pain, unspecified (principal); E11.9 Type 2 diabetes mellitus without complications; J45.909 Unspecified asthma, uncomplicated; F17.210 Nicotine dependence, cigarettes, uncomplicated; Z79.4 Long term (current) use of insulin; Z79.899 Other long term (current) drug therapy
CPT/HCPCS: 36415; 71046; 80053; 81003; 83690; 83735; 83880; 85007; 85027; 99283; 99284

== ENCOUNTER → 2025-04-08 17:05 | Outpatient (BNV) | payer OTHER, SELFPAY | PROVIDERS: PCP Pediatrics; Visit Provider Specialist | DX: M54.6 Pain in thoracic spine (principal) | CPT/HCPCS: 71046 ==

== ENCOUNTER 2025-05-07 10:46 | Outpatient (AMB) | payer OTHER, SELFPAY ==
[2025-05-07 10:50] VITALS: BP 116/64; PULSE 95; O2SAT 96; BMI 37.1
--- NOTE | 2025-05-07 10:50 | A.OFFVIS_ITS ---
Vital Signs 05/07/25 10:50 Height 5 ft 4 in Weight 216 lb 0.848 oz BMI 37.1 BP 116/64 Blood Pressure Location Lt brachial Position Sitting Pulse 95 Pulse Source Pulse Oximeter Pulse Oximetry (%) 96 Oxygen Delivery Method Room Air Intake Visit Reasons: Cough Accompanied by: Self / Same As Patient Allergies latex Allergy (Verified 05/07/25 10:53) Unknown HPI Comments Details: The patient is a 50-year-old woman with a known history of asthma, obstructive sleep apnea on CPAP in addition to tobacco dependency. The patient states that she used to smoke about 4 packs a day stable to cut down now to about 2 packs a day which is very proud of. She understands she needs to continue cutting down. She continues to have significant shortness of breath and wheezing. She has been on multiple inhalers including Symbicort and ipratropium along with Incruse the therapy has not been effective for her. There may be some hearing issues as well. I do believe that Trelegy inhaler would be a better option for her with better adherence and once a day regimen that she will likely continue more regu larly. She has known allergies that she has been tested in the past. she does complaint of some back pain and chest pain which is worsened by coughing. She was evaluated with a chest x-ray in the past without any acute disease. In addition to this the patient was diagnosed with obstructive sleep apnea. She has sleep study at [facility]. He has [id number]-[id number] sleep apnea with an AHI of 11. the patient does struggle with her CPAP. Feels like her CPAP settings are too high. She will bring her CPAP in during the next visit in order to adjusted. She has not gotten supplies. I explained to her that is likely due to the fact that she is not using her machine. Therefore will adjust her machine to see that she can use it more regularly and we can get his supplies more regularly. I will have to request from her [employer] information about her level or status. The patient is considered not active she may need to get a repeat sleep study in order to get supplies. 01/19/2024 patient is here for a pulmonary follow-up visit. She is having hard time her breathing. She feels that she is getting more chest congestion and cough. Moderate severity. Unfortunately she continues to smoke cigarettes. She understands that while she smokes the medication is not going to be effective improving her symptoms. And ultimately she can get worse. She has been using the Trelegy inhaler with good effect. This point she has evidence of chronic bronchitis. Will go ahead and place her on azithromycin 3 times a week and also started him Daliresp. Will try to avoid prednisone since she has required frequent description solid. The patient also continues to have significant daytime drowsiness. She did have a sleep study demonstrating no significant sleep apnea. Will go and request an overnight oximetry to see if she has any evidence of hypoxia in view of her COPD. If she does have hypoxia as she will benefit from oxygen at nighttime. The patient continue the current therapy and will follow-up in 3-4 months. 05/16/2024 the patient is here for a pulmonary follow-up visit. The patient is still struggling with her breathing. She has been using the Trelegy. Still waking up with chest tightness and cough. Sometimes she has some difficulty at nighttime that affects her sleep. She still having significant daytime drowsiness. Her [place] score is elevated 11/24. We did try to get her a in- lab sleep study but she did not qualify. She did have a home sleep study back in 2021. Will go ahead and repeat a home sleep study at this time. In addition to that she did have a CT scan of the chest done back in 01/11/2023 which we personally reviewed. The patient had multiple pulmonary nodules and largest 1 measuring 4.5 mm in size. Therefore, will go ahead and repeat her CT scan at this time. She is also concerned because she has an avid smoker in at risk for lung cancer. She is too young for the lung cancer screening program at this time. She did cut down from her cigarette smoking she was smoking up to 3 packs a day and she is down to 1 pack a day. She has not ready to quit smoking altogether. Otherwise she continues with respiratory medicine. 07/20/2024 the patient is here for a pulmonary follow-up visit. The patient overall is doing well. She is still struggling with smoking. She has been smoking about 2 packs a day. She really wants to quit. Although she gets very irritable and has a lot of anxiety when she is thinking about quitting. She is willing to try will retry this time. Will start 150 mg twice a day. In additio n to that she can use the nicotine patch. The patient does have a history depression so therefore hold off on Chantix. The patient also had a CT scan of the chest that we personally reviewed. Appears that her pulmonary nodule is stable. Will waiting for the final read. But based on my interpretation look pretty stable. The patient will continue her respiratory medications at this time. She has responded well to the azithromycin also the Daliresp. Once she completes the azithromycin she can just continue on the Daliresp. 10/12/2024 the patient is here for pulmonary sick visit. She has been sick now for about 3 4 days. She started developing worsening cough chest congestion. Significant wheezing. She has been using her nebulizer several times a day. Only help partially. She is on hard time sleeping. She has not taking any prescription medications at this time. She still struggling with smoking. On exam she does have significant rhonchi and wheezing throughout. She will need prednisone for COPD exacerbation. In addition to that will start him some doxycycline. The mucus seems to be white clear and thick. In addition to that she can continue the nebulizer frequently. Patient needs to refrain from smoking. If she is no better she will call early next week if she is worse she may need to broaden the ED. 11/08/2024 the patient is here for a pulmonary follow-up visit. Overall she is feeling better. Chest congestion significantly improved. Although she still has some sore throat and hoarseness. She did complete all the antibiotics. The patient did required the cough medication with good effect. She still has some leftover in case she needs it. She did complete the prednisone. No further wheezing at this time. Therefore, the patient will continue with current respiratory regimen. She is still struggling with her smoking. She knows she needs to quit although not sure she is ready. Will follow-up in 4-6 months. If any issues arise she will call for an earlier assessment. 05/07/2025 the patient is here for a pulmonary follow-up visit. She is still complaining of similar symptoms of chest congestion and chest discomfort. The symptoms come and go. Unfortunately she is still smoking. She needs to quit although is very hard for her. She was dealing with depressive symptoms since she was recently started on an antidepressant therapy that made it very tired and groggy for the last few days and therefore she stopped it. She is still working closely with a new psychiatrist to find a good regimen for her depression. In the meantime she continues use her CPAP. She did not qualify based on her last home sleep study for supplies. She does benefit from her CPAP. Will go ahead and request a repeat some sleep study since been a few years to try to make the diagnosis of sleep apnea that she had before in order to get her supplies delivered to her home. In the meantime she continues use on older mask. She tries to clean it well. I did have an N30 small mask that she could try in the meantime. The patient also has a pulmonary nodule noted on a CAT scan from June of 2024 personally by me. Will go ahead and repeat her CT scan at this time in June of 2025. Will continue with the current respiratory therapy and will work on treating her chronic bronchitis. [facility] Medical History (Updated 04/09/25 @ 00:01 by Eze Franco) Pulmonary nodule Asthma-COPD overlap syndrome MARTÍN on CPAP Chest pain Tobacco dependence Chronic rhinitis Asthma PCOS (polycystic ovarian syndrome) Carpal tunnel syndrome Anxiety Vitamin D deficiency Infertility Depression Bipolar 2 disorder Asthma Sleep apnea Type 2 diabetes mellitus Surgical History Hx of wisdom tooth extraction Family History Mother Diabetes Father No problems noted. Sister No problems noted. Brother No problems noted. Social History Alcohol intake: never Patient Tobacco Use Status: Current everyday Tobacco user Tobacco use type: Cigarette Cigarette Packs Per Day: 2 Cigarettes Per Day: 20 Years Smoked: 29 Review of Systems Const Reports daytime sleepiness, Reports fatigue and Denies night sweats ENT Denies change in voice, Reports hoarseness, Denies lip swelling, Denies mouth pain, Reports nasal congestion, Reports nasal discharge, Reports sore throat and Denies tongue swelling Card Denies dyspnea and Reports dyspnea on exertion Resp Denies change in phlegm color, Denies chest congestion, Reports cough, Denies dyspnea, Reports dyspnea on exertion and Reports wheezing GI Denies abdominal pain Musc Denies no additional complaints and Reports back pain Neuro Denies Neuro-related abnormal movements Psych Denies no additional complaints Endo Reports fatigue Wil/Lymph Denies easy bleeding and Denies lymphadenopathy Aller/Immun Denies lip swelling, Denies tongue swelling and Reports wheezing Physical Exam Vital Signs: Last Vital Signs Pulse 95 05/07/25 10:50 BP 116/64 05/07/25 10:50 Pulse Ox 96 05/07/25 10:50 Oxygen Delivery Method Room Air 05/07/25 10:50 BMI result Body Mass Index 37.1 Const General: alert HEENT Throat: Yes posterior oropharynx abnormal Neck Neck: Yes normal visual inspection, Yes full ROM and Yes no lymphadenopathy Chest Chest palpation & inspection: normal inspection of the chest Resp Effort & Inspection: normal respiratory effort Auscultation: no rhonchi, no wheezes and diminished lung sounds Cardio Rate: regular rate Rhythm: regular rhythm Heart sounds: S1 normal heart sound present and S2 normal heart sound present GI Palpation (GI): Soft to palpation and nontender Auscultation: normal bowel sounds Skin General skin exam: rashes and/or lesions noted Assessment & Plan Assessment & Plan (1) Asthma: Code(s): J45.909 - Unspecified asthma, uncomplicated Category: Medical Qualifiers: Asthma complication type: uncomplicated Asthma persistence: persistent Asthma severity: moderate Qualified Code(s): J45.40 - Moderate persistent asthma, uncomplicated (2) Bronchitis: Code(s): J40 - Bronchitis, not specified as acute or chronic Category: Medical (3) Chronic rhinitis: Code(s): J31.0 - Chronic rhinitis Category: Medical (4) Tobacco dependence: Code(s): F17.200 - Nicotine dependence, unspecified, uncomplicated Category: Medical (5) Asthma-COPD overlap syndrome: Code(s): J44.9 - Chronic obstructive pulmonary disease, unspecified Category: Medical (6) Pulmonary nodule: Code(s): R91.1 - Solitary pulmonary nodule Category: Medical (7) MARTÍN (obstructive sleep apnea): Code(s): G47.33 - Obstructive sleep apnea (adult) (pediatric) Category: Medical Plan BETH as needed, should use nebulizer continue Trelegy singular at nighttime continue Daliresp 500 mcg daily Zyrtec in the morning fluticasone nasal spray start smoking cessation CT chest 06/2025 Home PSG follow-up in 3-4 months Orders: Orders RT home sleep study Today G47.33 - Obstructive sleep apnea (adult) (pediatric) CT chest wo IV con 07/02/25 R91.1 - Solitary pulmonary nodule Medications: New azithromycin Take 1 tablet on Wednesday/Wednesday/Wednesday 250 mg PO 3XW 12 tabs 0RF 28 days K21.9 - Gastro-esophageal reflux disease without esophagitis Changed From albuterol sulfate 2.5 mg (3 mL) inhalation Q4-6H PRN 180 mL 3RF shortness of breath or wheezing To albuterol sulfate 2.5 mg (3 mL) inhalation Q6H PRN 180 mL 12RF shortness of breath or wheezing Refilled albuterol sulfate 90 mcg/actuation 2 inhalations inhalation Q6H PRN 18 grams 12RF shortness of breath or wheezing 30 days J44.9 - Chronic obstructive pulmonary disease, unspecified [id number] 200-62.5-25 mcg (Trelegy Ellipta) 1 ea PO DAILY 60 ea 11RF Coding Level of Care Code Est Pt Level 4 (66207) Complex EM visit Add On G2211 Diagnoses Moderate persistent asthma without complication J45.40 Asthma complication type: uncomplicated Asthma persistence: persistent Asthma severity: moderate Bronchitis J40 Chronic rhinitis J31.0 Tobacco dependence F17.200 Asthma-COPD overlap syndrome J44.9 Pulmonary nodule R91.1 MARTÍN (obstructive sleep apnea) G47.33 Time Spent (min) 17
--- OUTSIDE RECORDS SUMMARY | 2025-05-07 12:11 | XMS_ITS | Encounter Summary ---
Author Organization [facility] Address [address] [place] [address] Care Team Providers Care Solutions Architect Name Role Phone Nancie Gaston AGRICULTURAL [employer]OP F[employer] MANAGER-C Primary Care Provider [phone] Reason for Visit * Reason Comments Care Coordination CHW Adult Comprehens cayd Assessment Encounter Details Date Type Department Care Team (Late st Contact Info) Description 04/13/2022 Interim Notes [facility] [address] [place] [address] Kasandra Shelton [address] [place], [place] [id number] Social History Tobacco Use Types Packs/Day Years Used Date Smoking Tobacco: Heavy Smoker Cigarettes 0.5 33.5 Started: 1989 Smokeless Tobacco: Never Comments:1 pack per day Alcohol Use Standard [...] Orientation Straight 12/30/2018 12 :08 PM PST documented as of this encounter Plan of Treatment Not on file documented as of this encounter Goals Goal Patient Goal Type Associated Problems [...] smoke cessation for the next 6 months. documented as of this encounter Visit Diagnoses Not on filedocumented in this encounter Additional Health Concerns Assessment Noted Time PHQ-9 Depression Total Score: 21 022 2:08 PM PDT documented as of this encounter Care Teams Solutions Architect Relationship Specialty Start Date End Date Gaston Canada FNP-C [address] [place] [address] PCP - General Internal Medicine 11/30/23 documented as of this encounter
== END 2025-05-07 11:19 | disposition home or self-care (01) ==
LOC: HO.HPS 10:47
PROVIDERS: PCP Internal Medicine; Visit Provider Hospitalist
DX: J45.40 Moderate persistent asthma, uncomplicated (principal); J40 Bronchitis, not specified as acute or chronic; J31.0 Chronic rhinitis; F17.200 Nicotine dependence, unspecified, uncomplicated; J44.9 Chronic obstructive pulmonary disease, unspecified; R91.1 Solitary pulmonary nodule; G47.33 Obstructive sleep apnea (adult) (pediatric)
CPT/HCPCS: 99214; G2211

== ENCOUNTER → 2025-05-07 10:46 | Outpatient (BNVA) | payer OTHER, SELFPAY | PROVIDERS: PCP Internal Medicine; Visit Provider Hospitalist | DX: J45.40 Moderate persistent asthma, uncomplicated (principal); J40 Bronchitis, not specified as acute or chronic; J31.0 Chronic rhinitis; F17.200 Nicotine dependence, unspecified, uncomplicated; J44.9 Chronic obstructive pulmonary disease, unspecified; R91.1 Solitary pulmonary nodule; G47.33 Obstructive sleep apnea (adult) (pediatric) | CPT/HCPCS: 99212 ==

== ENCOUNTER 2025-07-02 15:49 | Outpatient (REF) | payer OTHER, SELFPAY ==
--- NOTE | ~2025-07-02 | CT_ITS ---
CLINICAL HISTORY: R91.1 - Solitary pulmonary nodule CT chest without contrast Comparison: CT/NH/SR - CT CHEST WO IV CON - 07/10/24 10:55 EDT Findings: The heart is normal size. The visualized thyroid and mediastinum are unremarkable. Few scattered stable benign nodules, for example subpleural left lower lobe on axial 88 and left upper lobe laterally, axial 31. Few scattered calcified granuloma are noted. No new or increasing nodule. No effusion. No pneumothorax. The visualized upper abdomen is unremarkable. No acute osseous finding. Impression: Stable benign pulmonary nodules. This document has been electronically signed by: Robert See MD on 07/04/2025 11:02:39
--- OUTSIDE RECORDS SUMMARY | 2025-07-02 15:51 | XMS_ITS | Encounter Summary ---
Author Organization [facility] Address [address] [place] [address] Care Team Providers Care Structural Steel Painter Name Role Phone Nancie Gaston VISION CARE ASSOCIATE-C Primary Care Provider [phone] Reason for Visit * Reason Comments Care Coordination CHW Adult Comprehens cady Assessment Encounter Details Date Type Department Care Team (Late st Contact Info) Description 04/13/2022 Interim Notes [facility] [address] [place] [address] Kasandra Shelton [address] [place], [place] [id number] Social History Tobacco Use Types Packs/Day Years Used Date Smoking Tobacco: Heavy Smoker Cigarettes 0.5 33.6 Started: 1991 Smokeless Tobacco: Never Comments:1 pack [...] Total Score: 21 022 2:08 PM PDT A Depression follow-up plan has been documented for the patient 05/31/2019 6:55 PM PDT documented as of this encounter Care Teams Structural Steel Painter Relationship Specialty Start Date End Date Gaston Canada FNP-C [address] [place] [address] PCP - General Internal Medicine 11/30/23 documented as of this encounter
== END 2025-07-02 15:50 | disposition home or self-care (01) ==
LOC: HO.CT 15:49
PROVIDERS: PCP Internal Medicine; Visit Provider Hospitalist
DX: R91.1 Solitary pulmonary nodule (principal)
CPT/HCPCS: 71250

== ENCOUNTER → 2025-07-02 15:51 | Outpatient (BNV) | payer OTHER, SELFPAY | PROVIDERS: PCP Internal Medicine; Visit Provider Radiology Vascular & Interventional Radiology | DX: R91.1 Solitary pulmonary nodule (principal) | CPT/HCPCS: 71250 ==

== ENCOUNTER 2025-07-20 13:49 | Emergency (ER) | payer OTHER, SELFPAY ==
--- NOTE | ~2025-07-20 | XR_ITS ---
EXAMINATION: XR CHEST CLINICAL INFORMATION: cough COMPARISON: 04/08/2025. CT chest 07/02/2025. TECHNIQUE: 2 views of the chest were obtained. FINDINGS: The cardiac, hilar, and mediastinal contours are normal. The lungs are clear bilaterally. There is no pneumothorax or pleural effusion. There is no focal osseous or soft tissue abnormality. XR/XR chest 2V IMPRESSION: No active pulmonary disease. Electronically signed by: Artur Zamorano MD 07/20/2025 02:31 PM EDT
[2025-07-20 14:16] VITALS: BP 130/68; PULSE 89; RESP 16; TEMP 36.7; O2SAT 98; BMI 36.3
--- NOTE | 2025-07-20 14:19 | ED.GENADULT ---
HPI - General Adult General Chief complaint: Upper Respiratory Symptoms Stated complaint: Nausea, headaches Time Seen by Provider: 07/20/25 14:56 Source: patient Mode of arrival: ambulatory Limitations: no limitations History of Present Illness ED Provider: Keyon Duncan HPI narrative: 48 yold female with pmh of asthma presents to the ED for coughing for one week with slight wheezing. Patient denies any chest pain, shortness of breath, leg swelling, pleurisy, or coughing up blood. Patient states mother also have similar symptoms Related Data Home Medications ?Medication ?Instructions ?Recorded ?Confirmed hydroxyzine HCl 25 mg tablet 25 mg PO BID PRN 06/19/22 11/08/24 dulaglutide 4.5 mg/0.5 mL mg subcut 02/22/23 11/08/24 subcutaneous pen injector (Trulicity) epinephrine 0.3 mg/0.3 mL 0.3 mg IM ONCE PRN anaphylaxis 02/22/23 11/08/24 injection, auto-injector insulin glargine 100 unit/mL (3 unit subcut 02/22/23 11/08/24 mL) subcutaneous pen (Lantus Solostar U-100 Insulin) insulin lispro 100 unit/mL subcut 02/22/23 11/08/24 subcutaneous solution nebulizers 02/22/23 11/08/24 gabapentin 300 mg capsule 600 mg PO TID 05/07/25 Previous Rx's ?Medication ?Instructions ?Recorded cetirizine 10 mg tablet 10 mg PO DAILY PRN for allergies 12/08/22 #90 tabs fluticasone propionate 50 2 spray intranasal DAILY #16 grams 12/08/22 mcg/actuation nasal spray,suspension montelukast 10 mg tablet 10 mg PO BEDTIME #30 tabs 04/24/24 bupropion HCl (smoking deter) 150 150 mg PO BID 30 days #60 tabs 04/03/25 mg tablet,12 hr sustained-release(smoking deterrent) cyclobenzaprine 10 mg tablet 10 mg PO TID PRN muscle spasm #20 04/08/25 tabs albuterol sulfate 2.5 mg/3 mL 2.5 mg (3 mL) inhalation Q6H PRN 05/07/25 (0.083 %) solution for nebulization shortness of breath or wheezing #180 mL albuterol sulfate 90 mcg/actuation 2 inh inhalation Q6H PRN shortness 05/07/25 aerosol inhaler of breath or wheezing 30 days #18 grams azithromycin 250 mg tablet 250 mg PO 3XW 28 days #12 tabs 05/07/25 fluticasone fur. 200 mcg-umeclid 1 ea PO DAILY #60 ea 05/08/25 62.5 mcg-vilant 25 mcg inhalat.powder (Trelegy Ellipta) roflumilast 500 mcg tablet 500 mcg PO DAILY 30 days #30 tabs 07/05/25 (Daliresp) nicotine 21 mg/24 hr daily 1 patch transdermal DAILY 28 days 07/09/25 transdermal patch #28 ea azithromycin 250 mg tablet See Rx Instructions PO .COMPLEX #6 07/20/25 tabs benzonatate 200 mg capsule 200 mg PO TID PRN cough #15 caps 07/20/25 prednisone 20 mg tablet 40 mg (2 x 20 mg) PO DAILY 5 days 07/20/25 #10 tabs Allergies Allergy/AdvReac Type Severity Reaction Status Date / Time latex Allergy Unknown Verified 07/20/25 14:19 Review of Systems Review of Systems: Coughing yellow-green mucus wheezing body aches Yes all other systems are reviewed and are negative PMFSH Past Medical History Medical History (Updated 07/20/25 @ 17:12 by JALEN Mayes) Pulmonary nodule Asthma-COPD overlap syndrome MARTÍN on CPAP Chest pain Tobacco dependence Chronic rhinitis Asthma PCOS (polycystic ovarian syndrome) Carpal tunnel syndrome Anxiety Vitamin D deficiency Infertility Depression Bipolar 2 disorder Asthma Sleep apnea Type 2 diabetes mellitus Surgical History Hx of wisdom tooth extraction Family History Family History Mother Diabetes Father No problems noted. Sister No problems noted. Brother No problems noted. Social History Social History Alcohol intake: never Patient Tobacco Use Status: Current everyday Tobacco user Tobacco use type: Cigarette Cigarette Packs Per Day: 2 Cigarettes Per Day: 20 Years Smoked: 29 Smoked in Last 30 Days: Yes Use of substances other than those prescribed or required for medical reasons: No Advance Directives: No Advance Directives Information Provided: Yes Physical Exam ED Vital Signs: Vital Signs - 24 hr 07/20/25 14:16 07/20/25 16:17 07/20/25 17:49 Temperature 98.0 F 98.0 F 98.0 F Pulse Rate 89 87 87 Respiratory Rate 16 18 18 Blood Pressure 130/68 129/79 129/79 Pulse Oximetry 98 98 98 Oxygen Delivery Method Room Air Room Air Room Air BMI result Body Mass Index 36.3 Const General: cooperative, healthy appearing, comfortable, no acute distress, well developed, alert, awake and Physically active Orientation/consciousness: patient oriented x3 [facility] Head: Yes normal to inspection, Yes No palpable skull fracture present, Yes normocephalic and Yes atraumatic Ears: hearing grossly normal bilaterally, external ears normal, TM's normal bilaterally, TM normal on the right, TM normal on the left, EAC's normal, mastoids normal and no periauricular adenopathy Throat: Yes posterior oropharynx normal, Yes tonsils normal and Yes uvula midline Eyes General: appearance normal, both eyes and all related structures Neck Neck: Yes normal visual inspection, Yes full ROM, Yes no lymphadenopathy, Yes no meningeal signs, Yes trachea midline, Yes supple, No anterior neck swelling and No tender Chest Chest palpation & inspection: normal inspection of the chest and normal palpation of entire chest wall Resp Effort & Inspection: normal respiratory effort and able to speak in complete sentences Auscultation: clear to auscultation bilaterally and wheezes expiratory wheezes Cardio Jugular venous distension: no JVD Heart sounds: S1 normal heart sound present and S2 normal heart sound present GI Inspection: Yes normal to inspection Palpation (GI): Firmness to palpation present (GI), nontender, no guarding and not rigid General: Yes no CVA tenderness Back/Spine/Pelvis Back: no CVA tenderness and No back tenderness Skin General skin exam: no rashes or lesions noted, elasticity normal and turgor normal Neuro General: patient oriented x3, gait normal, tone normal, moves all extremities, Normal light touch and pain sensation, no meningeal signs, no focal motor deficits, CN's II-XI intact bilaterally and normal sensation to monofilament Extrem Other: negative for lower extremity swelling, pitting edema, or calf pain. General: Yes normal to inspection and Yes full ROM Psych Appearance: grossly normal, well kempt and not disheveled Course Course Course Narrative: LAUREEN, this is a rapid medical exam performed by William Verduzco please refer to primary provider for complete H&P- 50-year-old female presents for evaluation of cough, congestion for the last 5 days. She reports a negative, testing home. Plan for chest x-ray, viral swabs Medical Decision Making Medical Decision Making [facility] Narrative: 50-year-old with past medical history of asthma presents to ED for URI symptoms. Mother also has similar complaints. Patient states coughing body aches and wheezing. Patient denies any chest pain or shortness of breath. Patient denies any sore throat drooling change in voice. Patient denies any pleurisy recent long travel or recent surgery. Chest x-ray negative pneumonia COVID influenza negative. Patient has wheezing will triage asthma exacerbation bronchitis. Not suspecting PE, OR, CHF, abdominal aortic aneurysm rupture, aortic dissection, myocarditis, or any other life-threatening etiology Differential Diagnosis Differential Diagnoses: The differential diagnosis associated with the presentation includes (Pneumonia, COVID, influenza asthma) Admission/Observation Consideration of admission/observation: Escalation of care including admission/observation considered Lab Data [facility] Lab Attestation statement: I reviewed the patient's lab results. Labs: Lab Results 07/20/25 07/20/25 Range/Units 14:31 16:13 Urine Color Yellow Urine Appearance Clear Urine pH 6.0 (5.0-9.0) Ur Specific [place] <= 1.005 (1.005-1.025) Urine Protein Negative (Neg-Trace) mg/dL Urine Glucose (UA) Negative (Negative) mg/dL Urine Ketones Negative (Negative) mg/dL Urine Blood Trace (Negative) Urine Nitrite Negative (Negative) Ur Leukocyte Esterase Negative (Negative) Urine RBC 0-2 (0-2) /HPF Urine WBC 0-5 (0-5) /HPF Ur Squamous Epith Cells 0-2 (0-2) /HPF Urine Bacteria None Seen (None Seen) Hyaline Casts 0-2 (0-2) /LPF COVID-19 (JENNY) Negative (Negative) COVID-19 Clin Com See Note Influenza Type A (CHARO) Negative (Negative) Influenza Type B (CHARO) Negative (Negative) Influenza A & B Note See Note Independent Interpretation I performed an independent interpretation of an: Plain X-Ray Radiology Impression Discussion of test interpretation with radiology: I have reviewed the radiologist's reading. Independent Historian Clinical information obtained from an independent historian. History obtained from or confirmed by: Other (patient) Prescription Management I considered prescription management with: Antibiotic Discharge Plan Discharge Clinical Impression: Bronchitis Patient Disposition: Home, Self-Care Instructions: Acute Bronchitis (ED) Additional Instructions: Recommend follow up with your primary care provider. Return to the ED immediately for any chest pain, shortness of breath, coughing up blood, leg swelling, increased use of pillows, shortness of breath on inspiration, or any other concerning symptoms. Continue using albuterol inhaler as needed. Prescriptions: New prednisone 20 mg tablet 40 mg PO DAILY 5 Days Qty: 10 0RF benzonatate 200 mg capsule 200 mg PO TID PRN (Reason: cough) Qty: 15 0RF azithromycin 250 mg tablet See Rx Instructions .ROUTE .COMPLEX Qty: 6 0RF Rx Instructions: For 250 mg dose pack: take 500 mg today (day 1), then 250 mg for 4 days (days 2-5) No Action fluticasone propionate 50 mcg/actuation spray,suspension 2 spray intranasal DAILY Qty: 16 0RF cetirizine 10 mg tablet 10 mg PO DAILY PRN (Reason: for allergies) Qty: 90 0RF montelukast 10 mg tablet 10 mg PO BEDTIME Qty: 30 0RF bupropion HCl (smoking deter) 150 mg tablet extended release 12 hr 150 mg PO BID 30 Days Qty: 60 6RF Trelegy Ellipta 200-62.5-25 mcg blister with device 1 ea PO DAILY Qty: 60 0RF roflumilast [Daliresp] 500 mcg tablet 500 mcg PO DAILY 30 Days Qty: 30 11RF nicotine 21 mg/24 hr patch 24 hour 1 patch transdermal DAILY 28 Days Qty: 28 3RF cyclobenzaprine 10 mg tablet 10 mg PO TID PRN (Reason: muscle spasm) Qty: 20 0RF hydroxyzine HCl 25 mg tablet 25 mg PO BID PRN (DME) nebulizers Misc See Rx Instructions .Route Rx Instructions: As directed Trulicity 4.5 mg/0.5 mL pen injector subcut insulin glargine [Lantus Solostar U-100 Insulin] 100 unit/mL (3 mL) insulin pen subcut insulin lispro 100 unit/mL solution subcut epinephrine 0.3 mg/0.3 mL auto-injector 0.3 mg IM ONCE PRN (Reason: anaphylaxis) albuterol sulfate 2.5 mg /3 mL (0.083 %) solution for nebulization 2.5 mg inhalation ONCE Qty: 3 0RF gabapentin 300 mg capsule 600 mg PO TID azithromycin 250 mg tablet 250 mg PO 3XW 28 Days Qty: 12 0RF Rx Instructions: Take 1 tablet on Wednesday/Wednesday/Wednesday albuterol sulfate 2.5 mg /3 mL (0.083 %) solution for nebulization 2.5 mg inhalation Q6H PRN (Reason: shortness of breath or wheezing) Qty: 180 12RF albuterol sulfate 90 mcg/actuation HFA aerosol inhaler 2 inh inhalation Q6H PRN (Reason: shortness of breath or wheezing) 30 Days Qty: 18 12RF Referrals: Primo Saeed MD [Primary Care Provider, Internal Medicine] - 2 days Referral Note: Coughing/wheezing Clinical Impression: Bronchitis Stand Alone Forms: Work/School Release Interventions: ED Discharge Assessment Last Done: 07/20/25 17:49 Discharge Date/Time: 07/20/25 17:49 Print Language: Slovenian
--- OUTSIDE RECORDS SUMMARY | 2025-07-20 14:55 | XMS_ITS | Encounter Summary ---
Author Organization [facility] Address [address] [place] [address] Care Team Providers Care School Laboratory Technician Name Role Phone Nancie Gaston JUNIOR SYSTEMS ENGINEER-C Primary Care Provider [phone] Reason for Visit * Reason Comments Care Coordination CHW Adult Comprehens cady Assessment Encounter Details Date Type Department Care Team (Late st Contact Info) Description 04/13/2022 Interim Notes [facility] [address] [place] [address] Kasandra Shelton [address] [place], [place] [id number] Social History Tobacco Use Types Packs/Day Years Used Date Smoking Tobacco: Heavy Smoker Cigarettes 0.5 33.7 Started: 1991 Smokeless Tobacco: Never Comments:1 pack [...] documented as of this encounter Care Teams School Laboratory Technician Relationship Specialty Start Date End Date Gaston Canada FNP-C [address] [place] [address] PCP - General Internal Medicine 11/30/23 documented as of this encounter
--- OUTSIDE RECORDS SUMMARY | 2025-07-20 14:55 | XMS_ITS | Clinical Summary ---
Author Organization [facility] Address [address] [place] [address] Care Team Providers Care Commercial Decorator Name Role Phone Gaston Canada EXPERIMENTAL DISPLAY BUILDER-C Primary Care Provider [phone] Source Comments PLEASE NOTE, if this patient [...] deviceIndications :Severe persistent asthma, unspecified whether complicated ([facility] & [facility]) Use as directed 1 Inhaler 09/28/20 19 [...] controlled type 2 diabetes mellitus with hyperglycemia ([facility] & [facility]) Inject 70 Units into the skin nightly at bedtime PRESCRIBED BY ENDOCRINOLOGY 15 mL 07/25/20 21 Active norethindrone, contraceptive, (MICRONOR) 0.35 mg tabletIndications :Uses control TK 1 T PO D. PRESCRIBED BY [facility] SUPERVISOR SALVAGE 30 Tablet 07/25/20 21 Active cwckdnjp-okci-HY- calcium-mins (THEREMS-M) 9 mg iron-400 mcg tabIndications:vi tamin deficiency Take 1 Tablet by mouth once daily Indications: vitamin deficiency 90 Tablet 1 07/25/20 21 Active atorvastatin (LIPITOR) 20 mg tabletIndications :Type 2 diabetes mellitus without complication, without long-term current use of insulin ([facility] & [facility]) TAKE 1 TABLET BY MOUTH EVERY DAY 90 Tablet 1 08/25/20 21 Active TRULICITY 3 mg/0.5 mL pen injector Prescribed by [facility] endocrinology 01/24/20 22 Active TRELEGY ELLIPTA 200-62.5-25 mcg dsdv Prescribed by pulmonary at [facility] 02/13/20 22 Active montelukast (SINGULAIR) 10 mg tablet Take 10 mg by mouth nightly at bedtime Prescribed by pulmonary at [facility] 02/13/20 22 Active topiramate (TOPAMAX) 50 mg [...] Uncontrolled type 2 diabetes mellitus with hyperglycemia ([facility] followed by [facility] 04/03/2021 Wears glasses 02/27/2021 Chronic obstructive pulmonar y disease, unspecified COPD type ([facility] & [facility]) 02/27/2021 MARTÍN on CPAP 01/06/2021 Obesity, Class II, BMI 35-39.9 11/22/2020 Overview (06/06/2021): Followed by [facility] ([facility]) Bipolar 2 disorder ([facility] & [facility]) 06/17/2020 Borderline personality disorder ([facility] & [facility]) 05/27/2020 PCOS (polycystic ovarian syndrome) 05/02/2020 Overview (05/02/2020): Followed by [facility] Matilde Women's Chronic neck and back pain 07/20/2019 Vitamin D deficiency 06/04/2019 Severe persistent asthma ([facility] & [facility]) 019 Chronic post-traumatic headache, not intractable 01/12/2019 Psychophysiological insomnia 12/30/2018 Moderate episode of recurren t major depressive disorder ([facility]) 12/30/2018 Presbyopia 06/02/2018 Overview (06/02/2018): 05/06/18 New spectacle Rx given. Dysmenorrhea 05/18/2018 Overview (05/18/2018): Painful irregular periods/sharp cramping Smoking 04/08/2018 Resolved Problems Problem Noted Date Diagnosed Date Resolved Date 'Pzkvl-tir-jnqaq' infant wit h signs of malnutrition ([facility]) 06/13/2019 11/01/2020 BMI 40.0-44.9, adult ([facility]) 05/31/2019 02/27/2021 RUQ pain 05/31/2019 11/01/2020 [...] 0.5 33.7 Started: 1989 Smokeless Tobacco: Never Tobacco Cessation:Ready [...] 84 07/25/2021 3:45 PM EDT Temperature 36.8 C (98.2 F) 07/25/2021 3:45 PM EDT Respiratory Rate 16 07/25/2021 3:45 PM EDT [...] Creatinine Rat io Screening 11/05/2021 11/05/2020 Annual Wellness (Adult): Indicated (All Coverage) 02/27/2022 02/27/2021, 11/01/2020, 05/31/2019, Additional history exists Diabetes Foot Exam 02/27/2022 02/27/2021 Tobacco Cessation Counseling (#1) 02/27/2022 CT Colonography 2022 Colonoscopy 2022 Colorectal Cancer Screening 2022 FIT/gFOBT 2022 Fecal DNA 2022 Flexible Sigmoidoscopy 2022 Depression Monitoring 06/16/2022 03/17/2022 , 02/27/2021, 11/01/2020, Additional history exists Hypertension Screening (#1) 07/25/2022 Hemoglobin A1c 08/16/2022 02/13/2022, 03/22, 11/05/2020, Additional history exists Lipid Screening 02/13/2023 02/13/2022, 03/22, 11/05/2020, Additional history exists Serum Creatinine 02/13/2023 02/13/2022, 10/2021, 11/05/2020, Additional history exists Relationship Safety Screening/Counseling 03/17/2023 03/17/2022, 11/01/2020, 05/31/2019 Pap Smear 07/22/2024 07/22/2021, 05/23 (Managed by Outside Provider) [id number] ( season) 2024 021, 03/04/2021 Alcohol and Drug Screen 11/22/2024 03/17/20 22, 02/27/2021, 11/01/2020, Additional history exists Imm-Influenza (#1) 2025 09/28/2019, 1 11/28/2018, 10/07/2018, Additional history exists Cervical Cancer Screening 07/22/2026 [...] 02/13/2022 9:01 AM EDT Bipolar 2 disorder ([facility]) LIPID PANEL Routine 02/13/2022 9:01 AM EDT Bipolar 2 disorder ([facility]) HEMOGLOBIN GLYCOSYLATED A1C Routine 02/13/2022 9:01 AM EDT Bipolar 2 disorder ([facility]) THINPREP PAP & HPV MRNA E6/E7 RFLX HPV 16,18/[address]/NG Routine 07/22/2021 1:35 PM EDT Encounter for cervical Pap smear with pelvic exam MICROALBUMIN/CREATININ E RATIO, URINE, RANDOM Routine 11/05/2020 10:12 AM EST Type 2 diabetes mellitus without complication, without long-term current use of insulin ([facility]) HISTORIC MAMMOGRAM 06/21/2019 3: 00 AM EDT ANTIBODY HIV-1&HIV-2 SINGLE RESULT Routine 04/11/2018 8:55 AM EDT Routine adult health maintenance HEPATITIS C ANTIBODY Routine 04/11/2018 8:55 AM EDT Routine adult health maintenance from Last 3 Months or Most Recently Relevant to Health Maintenance Results * (ABNORMAL) HEMOGLOBIN, GLYCOSYLATED (A1C) (02/13/2022 9:01 AM EDT) HEMOGLOBIN A1C 9.6(H) <5.7 % of total Hgb [employer] [facility] Comment: For someone without known diabetes, a [...] A1c for diagnosis of diabetes for children. Blood Blood / Unknown 02/13/2022 9 :01 AM EDT 02/13/2022 9:02 AM EDT Narrative [facility] - 02/13/2022 9:01 PM EDT FASTING:YES Tiara Silver APRN LAB - BLOOD DRAW Edited Result - Final Performing Organization Address City/[facility]/ZIP Co de Phone Number [facility] [address] [address], [facility] [address] [address] * (ABNORMAL) LIPID PANEL (02/13/2022 9:01 AM EDT) [facility] CHOLESTEROL, TOTAL 115 <200 mg/dL [facility] HDL CHOLESTEROL 40(L) > OR = 50 mg/dL [facility] TRIGLYCERIDES 75 <150 mg/dL [facility] LDL-CHOLESTEROL 59 99 mg/dL (calc) [facility] Comment: Reference range: <100 Desirable range <100 mg/dL for primary prevention; <70 mg/dL for patients with CHD or diabetic patients with > or = 2 CHD risk factors. LDL-C is now calculated using the Sindhu calculation, which is a validated novel method providing better accuracy than the Friedewald equation in the estimation of LDL-C. Jeancarlos SS et al. AUDRA. 2013;310(19): 8597-1412 (http://education.Senior Moments/faq/SIT616) CHOL/HDLC RATIO 2.9 <5.0 (calc) [facility] NON-HDL CHOLESTEROL 75 <130 mg/dL (calc) [facility] Comment: For patients with diabetes plus 1 major ASCVD risk factor, treating to a non-HDL-C goal of <100 mg/dL (LDL-C of <70 mg/dL) is considered a therapeutic option. Blood Blood / Unknown 02/13/2022 9 :01 AM EDT 02/13/2022 9:02 AM EDT Narrative [facility] - 02/13/2022 9:01 PM EDT FASTING:YES us Tiara Silver APRN LAB - BLOOD DRAW Final Result Performing Organization Address City/[facility]/ZIP Co de Phone Number [facility] [address] [address], [facility] [address] [address] * (ABNORMAL) COMPREHENSIVE METABOLIC PANEL (02/13/2022 9:01 AM EDT) GLUCOSE 280(H) 65 - 99 mg/dL [facility] Comment: Fasting reference interval For someone without known diabetes, a glucose value >125 mg/dL indicates that they may have diabetes and this should be confirmed with a follow-up test. UREA NITROGEN (BUN) 11 7 - 25 mg/dL [facility] CREATININE (blood) 0.61 0.50 - 1.10 mg/dL [facility] GFR ESTIMATED 110 > OR = 60 mL/min/1 .73m2 [facility] EGFR 128 > OR = 60 mL/min/1 .73m2 [facility] BUN/CREATININE RATIO NOT APPLICABLE 6 - 22 [facility] SODIUM 136 135 - 146 mmol/L [facility] POTASSIUM 4.2 3.5 - 5.3 mmol/L [facility] CHLORIDE 101 98 - 110 mmol/L [facility] CARBON DIOXIDE 29 20 - 32 mmol/L [facility] CALCIUM 9.4 8.6 - 10.2 mg/dL [facility] PROTEIN, TOTAL 7.0 6.1 - 8.1 g/dL [facility] ALBUMIN 3.9 3.6 - 5.1 g/dL [facility] GLOBULIN 3.1 1.9 - 3.7 g/dL (calc) [facility] ALBUMIN/GLOBUL IN RATIO 1.3 1.0 - 2.5 (calc) [facility] BILIRUBIN, TOTAL 0.4 0.2 - 1.2 mg/dL [facility] ALKALINE PHOSPHATASE 82 31 - 125 U/L [facility] AST 12 10 - 30 U/L [facility] ALT 16 6 - 29 U/L [facility] Blood Blood / Unknown 02/13/2022 9 :01 AM EDT 02/13/2022 9:02 AM EDT Narrative [employer] [facility] - 02/13/2022 9:01 PM EDT FASTING:YES Tiara Nadeem CURB AND GUTTER LABORER LAB - BLOOD DRAW Edited Result - Final [employer] [facility] [address] [address], [facility] [address] [address] * THINPREP PAP & HPV MRNA E6/E7 RFLX HPV 16,18/[address]/NG (07/22/2021 1:35 PM EDT) CHLAMYDIA TRACHOMATIS RNA, TMA NOT DETECTED NOT DETECTED [facility] NEISSERIA GONORRHOEAE RNA, TMA NOT DETECTED NOT DETECTED [facility] COMMENT Contracts [employer] Grants [facility] CLINICAL INFORMATION See Note [facility] Comment:ROUTINE EXAM LMP See Note [facility] Comment:NONE GIVEN PREV. PAP See Note [facility] Comment:NONE GIVEN PREV. BX See Note [facility] Comment:NONE GIVEN SOURCE See Note [facility] Comment:Cervix STATEMENT OF ADEQUACY See Note [facility] Comment: Satisfactory for evaluation. Endocervical/transformation zone component absent. INTERPRETATION/RESU LT See Note [employer] [facility] Comment:Negative for intraep ithelial lesion or malignancy. WRAPPING MACHINE OPERATOR See Note [facility] [employer] [facility] Comment: DMM, CT(ASCP) CT screening location: [address] [address] COMMENT [employer] [facility] HPV MRNA E6/E7 Not Detected Not Detected [facility] Comment: Methodology: Photogeologist-Mediated Amplification This assay detects E6/E7 viral messenger RNA (mRNA) from 14 high-risk HPV types (16,18,31,33,35,39,45,51,52,56,58,59,66,68). The analytical performance characteristics of this assay have been determined by [facility]. The modifications have not been cleared or approved by the FDA. This assay has been validated pursuant to the CLIA regulations and is used for clinical purposes. For additional information, please refer to http://education.RelateIQ/faq/ZNO914l8 (This link if provided for information/ educational purposes only.) CYTOLOGY Cervix uteri structure / Unknown 07/22/2021 1:35 PM EDT 07/23/2021 6:22 AM EDT Narrative [employer] [facility] - 07/24/2021 1:46 PM EDT EXPLANATORY NOTE: [...] test SurePath(TM) specimens have been determined by [facility]. The modifications have not been cleared or approved by the FDA. This assay has been validated pursuant to the CLIA regulations and is used for clinical purposes. For additional information, please refer to https://education.RelateIQ/faq/RZF899 (This link is being provided for information/ educational purposes only.) Zach [facility] - PATHOLOGY AND CYTOLOGY A MBULATORY Final Result [facility] [address] [address], [facility] [address] [address] * (ABNORMAL) MICROALBUMIN/CREATININE RATIO, URINE, RANDOM (11/05/2020 10:12 AM EST) MICROALBUMIN, RANDOM 66.6(H) 0.0 - 29.0 mg/L [facility] MICROALB/CRE RATIO RANDOM 18.1 0.0 - 30.0 mg/G [facility] CREATININE, RANDOM URINE 367 mg/dL [facility] 11/05/2020 10:1 2 AM EST 11/05/2020 10:35 AM EST [facility] - 11/05/2020 1:51 PM EST [employer], a member of [address] [address] [employer] [place] - Wilma York MD PT ID [id number] ORD# [id number] Sydni [facility] URINE AMBULATORY Final Resul t [facility] [address] [place] [address], * HISTORIC MAMMOGRAM (06/21/2019 3:00 AM EDT) 06/21/2019 3:00 AM EDT Babita Lau PA-C IMG MAMMO Final Result * HEPATITIS C ANTIBODY (04/11/2018 8:55 AM EDT) HEPATITIS C VIRUS SCREEN NEGATIVE NEGATIVE [facility] Blood specimen (specimen) Blood / Unknown 04/11/2018 8:55 AM EDT 04/11/2018 9:[address] [facility] - 04/11/2018 1:08 PM EDT [employer] [address] [place] [address] PT ID [id number] ORD# [id number] Rosita Otto NP LAB - BLOOD DRAW Final Result [address] [address], * HIV-1 & HIV-2 ANTIBODIES (04/11/2018 8:55 AM EDT) Pathologist [facility] HIV 1 AND 2 ANTIBODY SCREEN NEGATIVE NEGATIVE [facility] Comment: This assay is a 4th generation assay allowing for earlier detection of HIV infection by detecting the presence of the HIV-1 p24 antigen as well as the traditional antibodies to HIV type 1 (including group O) and type 2. Use of a 4th generation assay is the current CDC recommendation for HIV screening. Blood specimen (specimen) Blood / Unknown 04/11/2018 8:55 AM EDT 04/11/2018 9:[address] [facility] - 04/11/2018 1:08 PM EDT [employer] [address] [place] [address] PT ID [id number] ORD# [id number] Rosita Otto VOTING MACHINE REPAIRER LAB - BLOOD DRAW Final Result [facility] [address] [place] [address], from Last 3 Months or Most Recently Relevant to Health Maintenance Insurance [facility] Care Teams Commercial Decorator Relationship Specialty Start Date End Date Gaston Canada FNP-C [address] [place] [address] PCP - General Internal Medicine 11/30/23
[2025-07-20 15:03] LABS: COVID-19 Test Negative (Negative); IDNOW Serial# 55D5AD1C
[2025-07-20 15:05] LABS: IDNOW Serial# 58CA691E; Influenza B2 Negative (Negative)
[2025-07-20 16:17] VITALS: BP 129/79; PULSE 87; RESP 18; TEMP 36.7; O2SAT 98
[2025-07-20 16:28] LABS: Appearance Urine Clear; Glucose Urine UA Negative (Negative); PH 6.0 (5.0-9.0); Specific Gravity - Urine <= 1.005 (1.005-1.025); UMIC TRIGGER UACC YES
[2025-07-20 17:49] VITALS: BP 129/79; PULSE 87; RESP 18; TEMP 36.7; O2SAT 98
== END 2025-07-20 17:49 | disposition home or self-care (01) ==
PROVIDERS: Physician Assistant; Emergency Provider Emergency Medicine; PCP Internal Medicine
DX: J40 Bronchitis, not specified as acute or chronic (principal); R05.9 Cough, unspecified; R51.9 Headache, unspecified; R11.0 Nausea; Z03.818 Encounter for observation for suspected exposure to other biological agents ruled out
CPT/HCPCS: 71046; 81001; 87502; 87635; 99283; 99284

== ENCOUNTER → 2025-07-20 14:19 | Outpatient (BNV) | payer OTHER, SELFPAY | PROVIDERS: PCP Internal Medicine; Visit Provider Radiology Diagnostic Radiology | DX: R05.9 Cough, unspecified (principal) | CPT/HCPCS: 71046 ==

== ENCOUNTER → 2025-08-06 15:29 | Outpatient (REF) | payer OTHER, SELFPAY ==
--- OUTSIDE RECORDS SUMMARY | 2025-08-06 20:53 | XMS_ITS | Encounter Summary ---
Author Organization [facility] Address [address] [place] [address] Care Team Providers Care Manager Construction Name Role Phone Nancie Gaston ANIMAL KILLER-C Primary Care Provider [phone] Reason for Visit * Reason Comments Care Coordination CHW Adult Comprehens cady Assessment Encounter Details Date Type Department Care Team (Late st Contact Info) Description 04/13/2022 Interim Notes [facility] [address] [place] [address] Kasandra Shelton [address] [place], [place] [phone] Social History Tobacco Use Types Packs/Day Years [...] documented as of this encounter Care Teams Manager Construction Relationship Specialty Start Date End Date Gaston Canada FNP-C [address] [place] [address] PCP - General Internal Medicine 11/30/23 documented as of this encounter
--- OUTSIDE RECORDS SUMMARY | 2025-08-06 20:53 | XMS_ITS | Clinical Summary ---
Author Organization [facility] Address [address] [place] [address] Care Team Providers Care Rail Car Driver Name Role Phone Gaston Canada LIABILITY CLAIMS REPRESENTATIVE-C Primary Care Provider [phone] Source Comments PLEASE NOTE, if this patient [...] deviceIndications :Severe persistent asthma, unspecified whether complicated ([facility]) Use as directed 1 Inhaler [...] controlled type 2 diabetes mellitus with hyperglycemia ([facility]) Inject 70 Units into the skin nightly at bedtime PRESCRIBED BY ENDOCRINOLOGY 15 mL 07/25/20 21 Active norethindrone, contraceptive, (MICRONOR) 0.35 mg tabletIndications :Uses control TK 1 T PO D. PRESCRIBED BY [facility] 30 Tablet 07/25/20 21 Active rkpzkzku-zapf-ER- calcium-mins (THEREMS-M) 9 mg iron-400 mcg tabIndications:vi tamin deficiency Take 1 Tablet by mouth once daily Indications: vitamin deficiency 90 Tablet 1 07/25/20 21 Active atorvastatin (LIPITOR) 20 mg tabletIndications :Type 2 diabetes mellitus without complication, without long-term current use of insulin ([facility]) TAKE 1 TABLET BY MOUTH EVERY DAY 90 Tablet 1 08/25/20 21 Active TRULICITY 3 mg/0.5 mL pen injector [place] [facility] [place] 01/24/20 22 Active TRELEGY ELLIPTA 200-62.5-25 mcg dsdv Prescribed by pulmonary at [facility] 02/13/20 22 Active montelukast (SINGULAIR) 10 mg tablet Take 10 mg by mouth nightly at bedtime Prescribed by pulmonary at [facility] 02/13/20 22 Active topiramate (TOPAMAX) 50 mg [...] Uncontrolled type 2 diabetes mellitus with hyperglycemia ([facility] 04/03/2021 Wears glasses 02/27/2021 Chronic obstructive pulmonar y disease, unspecified COPD type ([facility]) 02/27/2021 MARTÍN on CPAP 01/06/2021 Obesity, Class II, BMI 35-39.9 11/22/2020 Overview (06/06/2021): Followed by [facility] ([facility]) Bipolar 2 disorder ([facility]) 06/17/2020 Borderline personality disorder ([facility]) 05/27/2020 PCOS (polycystic ovarian syndrome) 05/02/2020 Overview (05/02/2020): Followed by [facility] Chronic neck and back pain 07/20/2019 Vitamin D deficiency 06/04/2019 Severe persistent asthma ([facility]) 019 Chronic post-traumatic headache, not intractable 01/12/2019 Psychophysiological insomnia 12/30/2018 Moderate episode of recurren t major depressive disorder ([facility]) 12/30/2018 Presbyopia 06/02/2018 Overview (06/02/2018): 05/06/18 New spectacle Rx given. Dysmenorrhea 05/18/2018 Overview (05/18/2018): Painful irregular periods/sharp cramping Smoking 04/08/2018 Resolved Problems Problem Noted Date Diagnosed Date Resolved Date 'Dhqwo-fbd-wprco' infant wit h signs of malnutrition ([facility]) 06/13/2019 11/01/2020 BMI 40.0-44.9, adult ([facility]) 05/31/2019 02/27/2021 RUQ pain 05/31/2019 11/01/2020 Panic [...] 07/22/2024 07/22/2021, 05/23 (Managed by Outside Provider) Alcohol and Drug Screen 11/22/2024 03/17/20 22, 02/27/2021, 11/01/2020, Additional history exists [id number] ( season) 2025 021, 03/04/2021 Imm-Influenza (#1) 2025 09/28/2019, 1 11/28/2018, 10/07/2018, [...] 02/13/2022 9:01 AM EDT Bipolar 2 disorder ([facility]) LIPID PANEL Routine 02/13/2022 9:01 AM EDT Bipolar 2 disorder ([facility]) HEMOGLOBIN GLYCOSYLATED A1C Routine 02/13/2022 9:01 AM EDT Bipolar 2 disorder ([facility]) THINPREP PAP & HPV MRNA E6/E7 RFLX HPV 16,18/[address]/NG Routine 07/22/2021 1:35 PM EDT Encounter for cervical Pap smear with pelvic exam MICROALBUMIN/CREATININ E RATIO, URINE, RANDOM Routine 11/05/2020 10:12 AM EST Type 2 diabetes mellitus without complication, without long-term current use of insulin ([facility]) HISTORIC MAMMOGRAM 06/21/2019 3: 00 AM EDT ANTIBODY HIV-1&HIV-2 SINGLE RESULT Routine 04/11/2018 8:55 AM EDT Routine adult health maintenance HEPATITIS C ANTIBODY Routine 04/11/2018 8:55 AM EDT Routine adult health maintenance from Last 3 Months or Most Recently Relevant to Health Maintenance Results * (ABNORMAL) HEMOGLOBIN, GLYCOSYLATED (A1C) (02/13/2022 9:01 AM EDT) HEMOGLOBIN A1C 9.6(H) <5.7 % of total Hgb [facility] Comment: For someone without known diabetes, a [...] AM EDT 02/13/2022 9:02 AM EDT Narrative [facility] - 02/13/2022 9:01 PM EDT FASTING:YES Tiara Silver APRN LAB - BLOOD DRAW Edited Result - Final Performing Organization Address City/[facility]/ZIP Co de Phone Number [facility] [address] [address], [facility] [address] [address] * (ABNORMAL) LIPID PANEL (02/13/2022 9:01 AM EDT) [facility] CHOLESTEROL, TOTAL 115 <200 mg/dL [facility] HDL CHOLESTEROL 40(L) > OR = 50 mg/dL [facility] TRIGLYCERIDES 75 <150 mg/dL [facility] LDL-CHOLESTEROL 59 99 mg/dL (calc) [facility] Comment: Reference range: <100 Desirable range <100 mg/dL for primary prevention; <70 mg/dL for patients with CHD or diabetic patients with > or = 2 CHD risk factors. LDL-C is now calculated using the Sindhu calculation, which is a validated novel method providing better accuracy than the Friedewald equation in the estimation of LDL-C. Jeancarlos SS et al. AUDRA. 2013;310(19): 3999-1453 (http://education.AMEE/faq/ONL201) CHOL/HDLC RATIO 2.9 <5.0 (calc) [facility] NON-HDL CHOLESTEROL 75 <130 mg/dL (calc) [facility] Comment: For patients with diabetes plus 1 major ASCVD risk factor, treating to a non-HDL-C goal of <100 mg/dL (LDL-C of <70 mg/dL) is considered a therapeutic option. Blood Blood / Unknown 02/13/2022 9 :01 AM EDT 02/13/2022 9:02 AM EDT Narrative [facility] - 02/13/2022 9:01 PM EDT FASTING:YES us Tiara Silver APRN LAB - BLOOD DRAW Final Result Performing Organization Address City/[facility]/ZIP Co de Phone Number [facility] [address] [address], [facility] [address] [address] * (ABNORMAL) COMPREHENSIVE METABOLIC PANEL (02/13/2022 9:01 AM EDT) GLUCOSE 280(H) 65 - 99 mg/dL [facility] Comment: Fasting reference interval For someone without known diabetes, a glucose value >125 mg/dL indicates that they may have diabetes and this should be confirmed with a follow-up test. UREA NITROGEN (BUN) 11 7 - 25 mg/dL [facility] CREATININE (blood) 0.61 0.50 - 1.10 mg/dL [facility] GFR ESTIMATED 110 > OR = 60 mL/min/1 .73m2 [facility] EGFR 128 > OR = 60 mL/min/1 .73m2 [facility] BUN/CREATININE RATIO NOT APPLICABLE 6 - 22 [facility] SODIUM 136 135 - 146 mmol/L [facility] POTASSIUM 4.2 3.5 - 5.3 mmol/L [facility] CHLORIDE 101 98 - 110 mmol/L [facility] CARBON DIOXIDE 29 20 - 32 mmol/L [facility] CALCIUM 9.4 8.6 - 10.2 mg/dL [facility] PROTEIN, TOTAL 7.0 6.1 - 8.1 g/dL [facility] ALBUMIN 3.9 3.6 - 5.1 g/dL [facility] GLOBULIN 3.1 1.9 - 3.7 g/dL (calc) [facility] ALBUMIN/GLOBUL IN RATIO 1.3 1.0 - 2.5 (calc) [facility] BILIRUBIN, TOTAL 0.4 0.2 - 1.2 mg/dL [facility] ALKALINE PHOSPHATASE 82 31 - 125 U/L [facility] AST 12 10 - 30 U/L [facility] ALT 16 6 - 29 U/L [facility] Blood Blood / Unknown 02/13/2022 9 :01 AM EDT 02/13/2022 9:02 AM EDT Narrative [facility] - 02/13/2022 9:01 PM EDT FASTING:YES Tiara Nadeem REED OR WIND INSTRUMENT REPAIRER LAB - BLOOD DRAW Edited Result - Final [facility] [address] [address], [facility] [address] [address] * THINPREP PAP & HPV MRNA E6/E7 RFLX HPV 16,18/[address]/NG (07/22/2021 1:35 PM EDT) CHLAMYDIA TRACHOMATIS RNA, TMA NOT DETECTED NOT DETECTED [facility] NEISSERIA GONORRHOEAE RNA, TMA NOT DETECTED NOT DETECTED [facility] COMMENT [facility] CLINICAL INFORMATION See Note [facility] Comment:ROUTINE EXAM LMP See Note [facility] Comment:NONE GIVEN PREV. PAP See Note [employer] Comment:NONE GIVEN PREV. BX See Note [employer] Comment:NONE GIVEN SOURCE See Note [employer] Comment:Cervix STATEMENT OF ADEQUACY See Note [facility] [facility] Comment: Satisfactory for evaluation. Endocervical/transformation zone component absent. INTERPRETATION/RESU LT See Note [facility] Comment:Negative for intraep ithelial lesion or malignancy. RETAIL COMMISSION SALES ASSOCIATE See Note [facility] Comment: DMM, CT(ASCP) CT screening location: [address] [address] COMMENT [facility] HPV MRNA E6/E7 Not Detected Not Detected [facility] Comment: Methodology: Grab Operator-Mediated Amplification This assay detects E6/E7 viral messenger RNA (mRNA) from 14 high-risk HPV types (16,18,31,33,35,39,45,51,52,56,58,59,66,68). The analytical performance characteristics of this assay have been determined by [employer]. The modifications have not been cleared or approved by the FDA. This assay has been validated pursuant to the CLIA regulations and is used for clinical purposes. For additional information, please refer to http://education.[employer]/faq/QYT445r7 (This link if provided for information/ educational purposes only.) CYTOLOGY Cervix uteri structure / Unknown 07/22/2021 1:35 PM EDT 07/23/2021 6:22 AM EDT Narrative [facility] - 07/24/2021 1:46 PM EDT EXPLANATORY NOTE: [...] test SurePath(TM) specimens have been determined by [employer]. The modifications have not been cleared or approved by the FDA. This assay has been validated pursuant to the CLIA regulations and is used for clinical purposes. For additional information, please refer to https://education.[employer]/faq/YNW036 (This link is being provided for information/ educational purposes only.) Zach RAO LAB - PATHOLOGY AND CYTOLOGY A MBULATORY Final Result [facility] [address] [address], [facility] [address] [address] * (ABNORMAL) MICROALBUMIN/CREATININE RATIO, URINE, RANDOM (11/05/2020 10:12 AM EST) MICROALBUMIN, RANDOM 66.6(H) 0.0 - 29.0 mg/L [facility] MICROALB/CRE RATIO RANDOM 18.1 0.0 - 30.0 mg/G [facility] CREATININE, RANDOM URINE 367 mg/dL [facility] 11/05/2020 10:1 2 AM EST 11/05/2020 10:35 AM EST [facility] - 11/05/2020 1:51 PM EST [employer], a member of [address] [address] Die Cutter Operator - Wilma York MD PT ID [id number] ORD# [id number] Sydni [facility] URINE AMBULATORY Final Resul t [facility] [address] [place] [address], * HISTORIC MAMMOGRAM (06/21/2019 3:00 AM EDT) 06/21/2019 3:00 AM EDT Babita Lau PA-C IMG MAMMO Final Result * HEPATITIS C ANTIBODY (04/11/2018 8:55 AM EDT) HEPATITIS C VIRUS SCREEN NEGATIVE NEGATIVE [facility] Blood specimen (specimen) Blood / Unknown 04/11/2018 8:55 AM EDT 04/11/2018 9:20 AM EDT [facility] - 04/11/2018 1:08 PM EDT [facility] [address] [place] [address] PT ID [id number] ORD# [id number] Rosita Otto NP LAB - BLOOD DRAW Final Result [address] [address], * HIV-1 & HIV-2 ANTIBODIES (04/11/2018 8:55 AM EDT) Pathologist [facility] HIV 1 AND 2 ANTIBODY SCREEN NEGATIVE NEGATIVE [facility] Comment: This assay is a 4th [...] 8:55 AM EDT 04/11/2018 9:20 AM EDT [facility] - 04/11/2018 1:08 PM EDT [facility] [address] [place] [address] PT ID [id number] ORD# [id number] Rosita Otto SUPERVISOR GEAR REPAIR LAB - BLOOD DRAW Final Result [facility] [address] [place] [address], from Last 3 Months or Most Recently Relevant to Health Maintenance Insurance [employer] [facility] [employer] Care Teams Rail Car Driver Relationship Specialty Start Date End Date Gaston Canada FNP-C [address] [place] [address] PCP - General Internal Medicine 11/30/23
== END ==
LOC: HO.SL 15:29
PROVIDERS: PCP Internal Medicine; Visit Provider Hospitalist
DX: G47.33 Obstructive sleep apnea (adult) (pediatric) (principal); R06.83 Snoring
CPT/HCPCS: 95806

== ENCOUNTER → 2025-08-06 15:41 | Outpatient (BNV) | payer OTHER, SELFPAY | PROVIDERS: PCP Internal Medicine; Visit Provider Internal Medicine | DX: R06.83 Snoring (principal) | CPT/HCPCS: 95806 ==

== ENCOUNTER 2025-08-10 10:37 | Outpatient (AMB) | payer OTHER, SELFPAY ==
[2025-08-10 10:55] VITALS: BP 120/60; PULSE 84; O2SAT 98; BMI 36.3
--- NOTE | 2025-08-10 10:55 | A.OFFVIS_ITS ---
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 The patient states that she used to smoke about 4 packs a day stable to cut down now to about 2 packs a day which is very proud of. She understands she needs to continue cutting down. She continues to have significant shortness of breath and wheezing. She has been on multiple inhalers including Symbicort and ipratropium along with Incruse the therapy has not been effective for her. There may be some hearing issues as well. I do believe that Trelegy inhaler would be a better option for her with better adherence and once a day regimen that she will likely continue more regularly. She has known allergies that she has been tested in the past. she does complaint of some back pain and chest pain which is worsened by coughing. She was evaluated with a chest x-ray in the past without any acute disease. In addition to this the patient was diagnosed with obstructive sleep apnea. She has sleep study at [facility]. He has [id number] sleep apnea with an AHI of 11. the patient does struggle with her CPAP. Feels like her CPAP settings are too high. She will bring her CPAP in during the next visit in order to adjusted. She has not gotten supplies. I explained to her that is likely due to the fact that she is not using her machine. Therefore will adjust her machine to see that she can use it more regularly and we can get his supplies more regularly. I will have to request from her [employer] company information about her level or status. The patient is considered not active she may need to get a repeat sleep study in order to get supplies. 01/19/2024 patient is here for a pulmonary follow-up visit. She is having hard time her breathing. She feels that she is getting more chest congestion and cough. Moderate severity. Unfortunately she continues to smoke cigarettes. She understands that while she smokes the medication is not going to be effective improving her symptoms. And ultimately she can get worse. She has been using the Trelegy inhaler with good effect. This point she has evidence of chronic bronchitis. Will go ahead and place her on azithromycin 3 times a week and also started him Daliresp. Will try to avoid prednisone since she has required frequent description solid. The patient also continues to have significant daytime drowsiness. She did have a sleep study demonstrating no significant sleep apnea. Will go and request an overnight oximetry to see if she has any evidence of hypoxia in view of her COPD. If she does have hypoxia as she will benefit from oxygen at nighttime. The patient continue the current therapy and will follow-up in 3-4 months. 05/16/2024 the patient is here for a pulmonary follow-up visit. The patient is still struggling with her breathing. She has been using the Trelegy. Still waking up with chest tightness and cough. Sometimes she has some difficulty at nighttime that affects her sleep. She still having significant daytime drowsiness. Her Mckenney score is elevated 11/24. We did try to get her a in- lab sleep study but she did not qualify. She did have a home sleep study back in 2021. Will go ahead and repeat a home sleep study at this time. In addition to that she did have a CT scan of the chest done back in 01/11/2023 which we personally reviewed. The patient had multiple pulmonary nodules and largest 1 measuring 4.5 mm in size. Therefore, will go ahead and repeat her CT scan at this time. She is also concerned because she has an avid smoker in at risk for lung cancer. She is too young for the lung cancer screening program at this time. She did cut down from her cigarette smoking she was smoking up to 3 packs a day and she is down to 1 pack a day. She has not ready to quit smoking altogether. Otherwise she continues with respiratory medicine. 07/20/2024 the patient is here for a pulmonary follow-up visit. The patient overall is doing well. She is still struggling with smoking. She has been smoking about 2 packs a day. She really wants to quit. Although she gets very irritable and has a lot of anxiety when she is thinking about quitting. She is willing to try will retry this time. Will start 150 mg twice a day. In addition to that she can use the nicotine patch. The patient does have a history depression so therefore hold off on Chantix. The patient also had a CT scan of the chest that we personally reviewed. Appears that her pulmonary nodule is stable. Will waiting for the final read. But based on my interpretation look pretty stable. The patient will continue her respiratory medications at this time. She has responded well to the azithromycin also the Daliresp. Once she completes the azithromycin she can just continue on the Daliresp. 10/12/2024 the patient is here for pulmonary sick visit. She has been sick now for about 3 4 days. She started developing worsening cough chest congestion. Significant wheezing. She has been using her nebulizer several times a day. Only help partially. She is on hard time sleeping. She has not taking any prescription medications at this time. She still struggling with smoking. On exam she does have significant rhonchi and wheezing throughout. She will need prednisone for COPD exacerbation. In addition to that will start him some doxycycline. The mucus seems to be white clear and thick. In addition to that she can continue the nebulizer frequently. Patient needs to refrain from smoking. If she is no better she will call early next week if she is worse she may need to broaden the ED. 11/08/2024 the patient is here for a pulmonary follow-up visit. Overall she is feeling better. Chest congestion significantly improved. Although she still has some sore throat and hoarseness. She did complete all the antibiotics. The patient did required the cough medication with good effect. She still has some leftover in case she needs it. She did complete the prednisone. No further wheezing at this time. Therefore, the patient will continue with current respiratory regimen. She is still struggling with her smoking. She knows she needs to quit although not sure she is ready. Will follow-up in 4-6 months. If any issues arise she will call for an earlier assessment. 05/07/2025 the patient is here for a pulmonary follow-up visit. She is still complaining of similar symptoms of chest congestion and chest discomfort. The symptoms come and go. Unfortunately she is still smoking. She needs to quit although is very hard for her. She was dealing with depressive symptoms since she was recently started on an antidepressant therapy that made it very tired and groggy for the last few days and therefore she stopped it. She is still working closely with a new psychiatrist to find a good regimen for her depression. In the meantime she continues use her CPAP. She did not qualify based on her last home sleep study for supplies. She does benefit from her CPAP. Will go ahead and request a repeat some sleep study since been a few years to try to make the diagnosis of sleep apnea that she had before in order to get her supplies delivered to her home. In the meantime she continues use on older mask. She tries to clean it well. I did have an N30 small mask that she could try in the meantime. The patient also has a pulmonary nodule noted on a CAT scan from June of 2024 personally by me. Will go ahead and repeat her CT scan at this time in June of 2025. Will continue with the current respiratory therapy and will work on treating her chronic bronchitis. 08/10/2025 the patient is here for a pulmonary follow-up visit. She is not feeling well. Back in the end of June she went to the ER with worsening cough chest congestion headache postnasal drip and sore throat. She did have a chest x-ray with some minimal atelectasis. Prior to that she had a CT scan of the chest which was personally by me without any significant findings. No evidence of any airspace disease which is reassuring. She does have nasal congestion and a postnasal drip. Likely has an upper airway cough syndrome with significant sinusitis. Will go ahead and treat her for that. She already finished a course of prednisone. Will try to avoid specially because her sugars. She does not have a history of high blood pressure so we can try Sudafed and she can also use 5 days of Afrin to help her as well. Will try to control her cough with cough medication at this time. She will continue with the current antibiotics as prescribed. She will continue with respiratory therapy as prescribed. She will follow-up in 4-6 months. If any issues arise prior to that she will call for an earlier assessment. [facility] Medical History (Updated 07/21/25 @ 00:01 by Background Joan) Pulmonary nodule Asthma-COPD overlap syndrome MARTÍN on CPAP Chest pain Tobacco dependence Chronic rhinitis Asthma PCOS (polycystic ovarian syndrome) Carpal tunnel syndrome Anxiety Vitamin D deficiency Infertility Depression Bipolar 2 disorder Asthma Sleep apnea Type 2 diabetes mellitus Surgical History Hx of wisdom tooth extraction Family History Mother Diabetes Father No problems noted. Sister No problems noted. Brother No problems noted. Social History Alcohol intake: never Patient Tobacco Use Status: Current everyday Tobacco user Tobacco use type: Cigarette Cigarette Packs Per Day: 2 Cigarettes Per Day: 20 Years Smoked: 29 Review of Systems Const Reports daytime sleepiness, Reports fatigue and Denies night sweats ENT Denies change in voice, Reports hoarseness, Denies lip swelling, Denies mouth pain, Reports nasal congestion, Reports nasal discharge, Reports sore throat and Denies tongue swelling Card Denies dyspnea and Reports dyspnea on exertion Resp Denies change in phlegm color, Denies chest congestion, Reports cough, Denies dyspnea, Reports dyspnea on exertion and Reports wheezing GI Denies abdominal pain Musc Denies no additional complaints and Reports back pain Neuro Denies Neuro-related abnormal movements Psych Denies no additional complaints Endo Reports fatigue Wil/Lymph Denies easy bleeding and Denies lymphadenopathy Aller/Immun Denies lip swelling, Denies tongue swelling and Reports wheezing Physical Exam Vital Signs: Last Vital Signs Pulse 84 08/10/25 10:55 BP 120/60 08/10/25 10:55 Pulse Ox 98 08/10/25 10:55 Oxygen Delivery Method Room Air 08/10/25 10:55 BMI result Body Mass Index 36.3 Const General: alert HEENT Throat: Yes posterior oropharynx abnormal Neck Neck: Yes normal visual inspection, Yes full ROM and Yes no lymphadenopathy Chest Chest palpation & inspection: normal inspection of the chest Resp Effort & Inspection: normal respiratory effort Auscultation: no rhonchi, no wheezes and diminished lung sounds Cardio Rate: regular rate Rhythm: regular rhythm Heart sounds: S1 normal heart sound present and S2 normal heart sound present GI Palpation (GI): Soft to palpation and nontender Auscultation: normal bowel sounds Skin General skin exam: rashes and/or lesions noted Assessment & Plan Assessment & Plan (1) Asthma: Code(s): J45.909 - Unspecified asthma, uncomplicated Category: Medical Qualifiers: Asthma complication type: uncomplicated Asthma persistence: persistent Asthma severity: moderate Qualified Code(s): J45.40 - Moderate persistent asthma, uncomplicated (2) Bronchitis: Code(s): J40 - Bronchitis, not specified as acute or chronic Category: Medical (3) Chronic rhinitis: Code(s): J31.0 - Chronic rhinitis Category: Medical (4) Tobacco dependence: Code(s): F17.200 - Nicotine dependence, unspecified, uncomplicated Category: Medical (5) Asthma-COPD overlap syndrome: Code(s): J44.9 - Chronic obstructive pulmonary disease, unspecified Category: Medical (6) Pulmonary nodule: Code(s): R91.1 - Solitary pulmonary nodule Category: Medical (7) MARTÍN (obstructive sleep apnea): Code(s): G47.33 - Obstructive sleep apnea (adult) (pediatric) Category: Medical Plan start Doxycycline start pseudophed start Afrin x 5 days fluticasone nasal spray Bloodwork BETH as needed, should use nebulizer continue Trelegy singular at nighttime continue Daliresp 500 mcg daily Zyrtec in the morning fluticasone nasal spray smoking cessation CT chest 06/2025-stable nodules Home PSG follow-up in 6-8 months Orders: Orders Complete Blood Count Auto Diff 08/10/25 J40 - Bronchitis, not specified as acute or chronic Immunoglobulin G Subclasses 08/10/25 J40 - Bronchitis, not specified as acute or chronic Immunoglobulin E 08/10/25 J40 - Bronchitis, not specified as acute or chronic Hypersensitive Pneumonitis Prf 08/10/25 J40 - Bronchitis, not specified as acute or chronic, R91.8 - Other nonspecific abnormal finding of lung field Erythrocyte Sedimentation Rate 08/10/25 J40 - Bronchitis, not specified as acute or chronic Immunoglobulins,IgG IgA IgM 08/10/25 J40 - Bronchitis, not specified as acute or chronic Sputum Cult + Gram stain 08/10/25 J40 - Bronchitis, not specified as acute or chronic, R91.1 - Solitary pulmonary nodule Medications: New doxycycline monohydrate 100 mg PO BID 28 tabs 0RF 14 days oxymetazoline 0.05% (Afrin (oxymetazoline)) 2 sprays intranasal Q12H PRN 30 mL 0RF nasal congestion 5 days codeine-guaifenesin 10-100 mg/5 mL 10 mL PO Q6H PRN 300 mL 0RF cough 10 days pseudoephedrine HCl ER 120 mg PO Q12H 60 tabs 1RF 30 days Refilled fluticasone propionate 50 mcg/actuation 2 sprays intranasal DAILY 16 grams 0RF J31.0 - Chronic rhinitis Coding Level of Care Code Est Pt Level 4 (88585) Complex EM visit Add On G2211 Diagnoses Moderate persistent asthma without complication J45.40 Asthma complication type: uncomplicated Asthma persistence: persistent Asthma severity: moderate Bronchitis J40 Chronic rhinitis J31.0 Tobacco dependence F17.200 Asthma-COPD overlap syndrome J44.9 Pulmonary nodule R91.1 MARTÍN (obstructive sleep apnea) G47.33 Time Spent (min) 17
--- OUTSIDE RECORDS SUMMARY | 2025-08-10 11:16 | XMS_ITS | Encounter Summary ---
Author Organization [facility] Address [address] [place] [address] Care Team Providers Care Clinical Research Nurse Name Role Phone Nancie Gaston V[employer] MACH[employer] MECHANIC-C Primary Care Provider [phone] Reason for Visit * Reason Comments Care Coordination CHW Adult Comprehens cady Assessment Encounter Details Date Type Department Care Team (Late st Contact Info) Description 04/13/[address] [facility] [address] [place] [address] Kasandra Shelton [address] [place], [place] [id number] Social History Tobacco Use Types Packs/Day Years [...] documented as of this encounter Care Teams Clinical Research Nurse Relationship Specialty Start Date End Date Gaston Canada FNP-C [address] [place] [address] PCP - General Internal Medicine 11/30/23 documented as of this encounter
--- OUTSIDE RECORDS SUMMARY | 2025-08-10 11:16 | XMS_ITS | Clinical Summary ---
Author Organization [facility] Address [address] [place] [address] Care Team Providers Care Cuff Stitcher Name Role Phone Gaston Canada TRACKMAN-C Primary Care Provider [phone] Source Comments PLEASE NOTE, if this patient [...] deviceIndications :Severe persistent asthma, unspecified whether complicated ([facility]) Use as directed 1 Inhaler [...] controlled type 2 diabetes mellitus with hyperglycemia ([facility]) Inject 70 Units into the skin nightly at bedtime PRESCRIBED BY ENDOCRINOLOGY 15 mL 07/25/20 21 Active norethindrone, contraceptive, (MICRONOR) 0.35 mg tabletIndications :Uses control TK 1 T PO D. PRESCRIBED BY [facility] SHINGLE INSPECTOR 30 Tablet 07/25/20 21 Active ozvwlwgx-kakt-AY- calcium-mins (THEREMS-M) 9 mg iron-400 mcg tabIndications:vi tamin deficiency Take 1 Tablet by mouth once daily Indications: vitamin deficiency 90 Tablet 1 07/25/20 21 Active atorvastatin (LIPITOR) 20 mg tabletIndications :Type 2 diabetes mellitus without complication, without long-term current use of insulin ([facility]) TAKE 1 TABLET BY MOUTH EVERY DAY 90 Tablet 1 08/25/20 21 Active TRULICITY 3 mg/0.5 mL pen injector Prescribed by [facility] 01/24/20 22 Active TRELEGY ELLIPTA 200-62.5-25 mcg dsdv Prescribed by pulmonary at [facility] 02/13/20 22 Active montelukast (SINGULAIR) 10 mg tablet Take 10 mg by mouth nightly at bedtime Prescribed by pulmonary at [facility] 02/13/20 22 Active topiramate (TOPAMAX) 50 mg [...] Uncontrolled type 2 diabetes mellitus with hyperglycemia ([facility] by [facility] 04/03/2021 Wears glasses 02/27/2021 Chronic obstructive pulmonar y disease, unspecified COPD type ([facility]) 02/27/2021 MARTÍN on CPAP 01/06/2021 Obesity, Class II, BMI 35-39.9 11/22/2020 Overview (06/06/2021): Followed by [facility] ([facility]) Bipolar 2 disorder ([facility]) 06/17/2020 Borderline personality disorder ([facility]) 05/27/2020 PCOS (polycystic ovarian syndrome) 05/02/2020 Overview (05/02/2020): Followed by [facility] Chronic neck and back pain 07/20/2019 Vitamin D deficiency 06/04/2019 Severe persistent asthma ([facility]) 019 Chronic post-traumatic headache, not intractable 01/12/2019 Psychophysiological insomnia 12/30/2018 Moderate episode of recurren t major depressive disorder ([facility]) 12/30/2018 Presbyopia 06/02/2018 Overview (06/02/2018): 05/06/18 New spectacle Rx given. Dysmenorrhea 05/18/2018 Overview (05/18/2018): Painful irregular periods/sharp cramping Smoking 04/08/2018 Resolved Problems Problem Noted Date Diagnosed Date Resolved Date 'Ntdam-fdf-tqgzc' infant wit h signs of malnutrition ([facility]) 06/13/2019 11/01/2020 BMI 40.0-44.9, adult ([facility]) 05/31/2019 02/27/2021 RUQ pain 05/31/2019 11/01/2020 [...] 03/17/20 22, 02/27/2021, 11/01/2020, Additional history exists [id number] ( season) 2025 021, 03/04/2021 Imm-Influenza (#1) [...] 02/13/2022 9:01 AM EDT Bipolar 2 disorder ([facility]) LIPID PANEL Routine 02/13/2022 9:01 AM EDT Bipolar 2 disorder ([facility]) HEMOGLOBIN GLYCOSYLATED A1C Routine 02/13/2022 9:01 AM EDT Bipolar 2 disorder ([facility]) THINPREP PAP & HPV MRNA E6/E7 RFLX HPV 16,18/[address]/NG Routine 07/22/2021 1:35 PM EDT Encounter for cervical Pap smear with pelvic exam MICROALBUMIN/CREATININ E RATIO, URINE, RANDOM Routine 11/05/2020 10:12 AM EST Type 2 diabetes mellitus without complication, without long-term current use of insulin ([facility]) HISTORIC MAMMOGRAM 06/21/2019 3: 00 AM EDT ANTIBODY HIV-1&HIV-2 SINGLE RESULT Routine 04/11/2018 8:55 AM EDT Routine adult health maintenance HEPATITIS C ANTIBODY Routine 04/11/2018 8:55 AM EDT Routine adult health maintenance from Last 3 Months or Most Recently Relevant to Health Maintenance Results * (ABNORMAL) HEMOGLOBIN, GLYCOSYLATED (A1C) (02/13/2022 9:01 AM EDT) HEMOGLOBIN A1C 9.6(H) <5.7 % of total Hgb [employer] [facility] Comment: For someone without known [...] AM EDT 02/13/2022 9:02 AM EDT Narrative [facility] - 02/13/2022 9:01 PM EDT FASTING:YES Tiara Silver APRN LAB - BLOOD DRAW Edited Result - Final Performing Organization Address City/[facility]/ZIP Co de Phone Number [facility] [address] [address], [facility] [address] [address] * (ABNORMAL) LIPID PANEL (02/13/2022 9:01 AM EDT) [facility] CHOLESTEROL, TOTAL 115 <200 mg/dL [facility] HDL CHOLESTEROL 40(L) > OR = 50 mg/dL [facility] TRIGLYCERIDES 75 <150 mg/dL [facility] LDL-CHOLESTEROL 59 99 mg/dL (calc) [facility] Comment: Reference range: <100 Desirable range <100 mg/dL for primary prevention; <70 mg/dL for patients with CHD or diabetic patients with > or = 2 CHD risk factors. LDL-C is now calculated using the Sindhu calculation, which is a validated novel method providing better accuracy than the Friedewald equation in the estimation of LDL-C. Jeancarlos SS et al. AUDRA. 2013;310(19): 0152-2723 (http://education.Storage Genetics/faq/EJH643) CHOL/HDLC RATIO 2.9 <5.0 (calc) [facility] NON-HDL CHOLESTEROL 75 <130 mg/dL (calc) [facility] Comment: For patients with diabetes plus 1 major ASCVD risk factor, treating to a non-HDL-C goal of <100 mg/dL (LDL-C of <70 mg/dL) is considered a therapeutic option. Blood Blood / Unknown 02/13/2022 9 :01 AM EDT 02/13/2022 9:02 AM EDT Narrative [facility] - 02/13/2022 9:01 PM EDT FASTING:YES us Tiara Silver APRN LAB - BLOOD DRAW Final Result Performing Organization Address City/[facility]/ZIP Co de Phone Number [facility] [address] [address], [facility] [address] [address] * (ABNORMAL) COMPREHENSIVE METABOLIC PANEL (02/13/2022 9:01 AM EDT) GLUCOSE 280(H) 65 - 99 mg/dL [facility] Comment: Fasting reference interval For someone without known diabetes, a glucose value >125 mg/dL indicates that they may have diabetes and this should be confirmed with a follow-up test. UREA NITROGEN (BUN) 11 7 - 25 mg/dL [facility] CREATININE (blood) 0.61 0.50 - 1.10 mg/dL [facility] GFR ESTIMATED 110 > OR = 60 mL/min/1 .73m2 [facility] EGFR 128 > OR = 60 mL/min/1 .73m2 [facility] BUN/CREATININE RATIO NOT APPLICABLE 6 - 22 [facility] SODIUM 136 135 - 146 mmol/L [facility] POTASSIUM 4.2 3.5 - 5.3 mmol/L [facility] CHLORIDE 101 98 - 110 mmol/L [facility] CARBON DIOXIDE 29 20 - 32 mmol/L [facility] CALCIUM 9.4 8.6 - 10.2 mg/dL [facility] PROTEIN, TOTAL 7.0 6.1 - 8.1 g/dL [facility] ALBUMIN 3.9 3.6 - 5.1 g/dL [facility] GLOBULIN 3.1 1.9 - 3.7 g/dL (calc) [facility] ALBUMIN/GLOBUL IN RATIO 1.3 1.0 - 2.5 (calc) [facility] BILIRUBIN, TOTAL 0.4 0.2 - 1.2 mg/dL [facility] ALKALINE PHOSPHATASE 82 31 - 125 U/L [facility] AST 12 10 - 30 U/L [facility] ALT 16 6 - 29 U/L [facility] Blood Blood / Unknown 02/13/2022 9 :01 AM EDT 02/13/2022 9:02 AM EDT Narrative [facility] - 02/13/2022 9:01 PM EDT FASTING:YES Tiara Nadeem REHABILITATION LIAISON LAB - BLOOD DRAW Edited Result - Final [facility] [address] [address], [facility] [address] [address] * THINPREP PAP & HPV MRNA E6/E7 RFLX HPV 16,18/[address]/NG (07/22/2021 1:35 PM EDT) CHLAMYDIA TRACHOMATIS RNA, TMA NOT DETECTED NOT DETECTED [facility] NEISSERIA GONORRHOEAE RNA, TMA NOT DETECTED NOT DETECTED [facility] COMMENT [employer] [facility] CLINICAL INFORMATION See Note [facility] Comment:ROUTINE EXAM LMP See Note [employer] Comment:NONE GIVEN PREV. PAP See Note [employer] Comment:NONE GIVEN PREV. BX See Note [employer] Comment:NONE GIVEN SOURCE See Note [employer] Comment:Cervix STATEMENT OF ADEQUACY See Note [employer] Comment: Satisfactory for evaluation. Endocervical/transformation zone component absent. INTERPRETATION/RESU LT See Note [employer] [facility] Comment:Negative for intraep ithelial lesion or malignancy. CUTTING TOOL SHARPENER See Note [facility] [employer] [facility] Comment: DMM, CT(ASCP) CT screening location: [address] [address] COMMENT [employer] [facility] HPV MRNA E6/E7 Not Detected Not Detected [employer] Comment: Methodology: Agricultural Economics Teacher-Mediated Amplification This assay detects E6/E7 viral messenger RNA (mRNA) from 14 high-risk HPV types (16,18,31,33,35,39,45,51,52,56,58,59,66,68). The analytical performance characteristics of this assay have been determined by [employer]. The modifications have not been cleared or approved by the FDA. This assay has been validated pursuant to the CLIA regulations and is used for clinical purposes. For additional information, please refer to http://education.Red L[employer]/faq/CBN795e7 (This link if provided for information/ educational purposes only.) CYTOLOGY Cervix uteri structure / Unknown 07/22/2021 1:35 PM EDT 07/23/2021 6:22 AM EDT Narrative [facility] - 07/24/2021 1:46 PM EDT [...] test SurePath(TM) specimens have been determined by [employer]. The modifications have not been cleared or approved by the FDA. This assay has been validated pursuant to the CLIA regulations and is used for clinical purposes. For additional information, please refer to https://education.[employer] L[employer]/faq/VOW079 (This link is being provided for information/ educational purposes only.) Zach [facility]O LAB - PATHOLOGY AND CYTOLOGY A MBULATORY Final Result [facility] [address] [address], [facility] [address] [address] * (ABNORMAL) MICROALBUMIN/CREATININE RATIO, URINE, RANDOM (11/05/2020 10:12 AM EST) MICROALBUMIN, RANDOM 66.6(H) 0.0 - 29.0 mg/L [facility] MICROALB/CRE RATIO RANDOM 18.1 0.0 - 30.0 mg/G [facility] CREATININE, RANDOM URINE 367 mg/dL [facility] 11/05/2020 10:1 2 AM EST 11/05/2020 10:35 AM EST [facility] - 11/05/2020 1:51 PM EST [employer], a member of [address] [address] Commercial Plumber - Wilma York MD PT ID [id number] ORD# [id number] Sydni [facility] URINE AMBULATORY Final Resul t [facility] [address] [place] [address], * HISTORIC MAMMOGRAM (06/21/2019 3:00 AM EDT) 06/21/2019 3:00 AM EDT Babita Lau PA-C IMG MAMMO Final Result * HEPATITIS C ANTIBODY (04/11/2018 8:55 AM EDT) HEPATITIS C VIRUS SCREEN NEGATIVE NEGATIVE [facility] Blood specimen (specimen) Blood / Unknown 04/11/2018 8:55 AM EDT 04/11/2018 9:20 AM EDT [facility] - 04/11/2018 1:08 PM EDT [employer] [address] [place] [address] PT ID [id number] ORD# [id number] Rosita [place] NP LAB - BLOOD DRAW Final Result [address] [address], * HIV-1 & HIV-2 ANTIBODIES (04/11/2018 8:55 AM EDT) Pathologist [facility] HIV 1 AND 2 ANTIBODY SCREEN NEGATIVE NEGATIVE [facility] Comment: This assay is a 4th [...] 8:55 AM EDT 04/11/2018 9:20 AM EDT [facility] - 04/11/2018 1:08 PM EDT [employer] [address] [place] [address] PT ID [id number] ORD# [id number] Rosita [place] CUT OFF OPERATOR SCORER LAB - BLOOD DRAW Final Result [facility] [address] [place] [address], from Last 3 Months or Most Recently Relevant to Health Maintenance Insurance [facility] [facility] [facility] Care Teams Cuff Stitcher Relationship Specialty Start Date End Date Gaston [place] FNP-C [address] [place] [address] PCP - General Internal Medicine 11/30/23
== END 2025-08-10 11:15 | disposition home or self-care (01) ==
LOC: HO.HPS 10:38
PROVIDERS: PCP Internal Medicine; Visit Provider Hospitalist
DX: J45.40 Moderate persistent asthma, uncomplicated (principal); J40 Bronchitis, not specified as acute or chronic; J31.0 Chronic rhinitis; F17.200 Nicotine dependence, unspecified, uncomplicated; J44.9 Chronic obstructive pulmonary disease, unspecified; R91.1 Solitary pulmonary nodule; G47.33 Obstructive sleep apnea (adult) (pediatric)
CPT/HCPCS: 99214; G2211

== ENCOUNTER → 2025-08-10 10:37 | Outpatient (BNVA) | payer OTHER, SELFPAY | PROVIDERS: PCP Internal Medicine; Visit Provider Hospitalist | DX: J45.40 Moderate persistent asthma, uncomplicated (principal); K21.9 Gastro-esophageal reflux disease without esophagitis; J44.9 Chronic obstructive pulmonary disease, unspecified; G47.33 Obstructive sleep apnea (adult) (pediatric); J40 Bronchitis, not specified as acute or chronic; J31.0 Chronic rhinitis; F17.200 Nicotine dependence, unspecified, uncomplicated; R91.1 Solitary pulmonary nodule | CPT/HCPCS: 99212 ==

== ENCOUNTER 2025-08-20 06:56 | Outpatient (REF) | payer OTHER, SELFPAY ==
--- OUTSIDE RECORDS SUMMARY | 2025-08-20 06:59 | XMS_ITS | Encounter Summary ---
Author Organization [facility] Address [address] [place] [address] Care Team Providers Care Boom Crane Operator Name Role Phone Nancie [place] LPN-C Primary Care Provider [phone] Reason for Visit * Reason Comments Care Coordination CHW Adult Comprehens cady Assessment Encounter Details Date Type Department Care Team (Late st Contact Info) Description 04/13/2022 Interim Notes [facility] [address] [place] [address] Kasandra Shelton [address] [place], [place] [phone] Social History Tobacco Use Types Packs/Day Years [...] documented as of this encounter Care Teams Boom Crane Operator Relationship Specialty Start Date End Date Gaston [place] FNP-C [address] [place] [address] PCP - General Internal Medicine 11/30/23 documented as of this encounter
--- OUTSIDE RECORDS SUMMARY | 2025-08-20 07:00 | XMS_ITS | Clinical Summary ---
Author Organization [facility] Address [address] [place] [address] Care Team Providers Care Brineyard Supervisor Name Role Phone Gaston Canada HEAD OF DATA-C Primary Care Provider [phone] Source Comments PLEASE NOTE, if this patient [...] deviceIndications :Severe persistent asthma, unspecified whether complicated ([facility]) Use as directed 1 [...] controlled type 2 diabetes mellitus with hyperglycemia ([facility]) Inject 70 Units into the skin nightly at bedtime PRESCRIBED BY ENDOCRINOLOGY 15 mL 07/25/20 21 Active norethindrone, contraceptive, (MICRONOR) 0.35 mg tabletIndications :Uses control TK 1 T PO D. PRESCRIBED BY [facility] SLEEVE WHEEL MAKER 30 Tablet 07/25/20 21 Active xkpnkooj-pulg-FJ- calcium-mins (THEREMS-M) 9 mg iron-400 mcg tabIndications:vi tamin deficiency Take 1 Tablet by mouth once daily Indications: vitamin deficiency 90 Tablet 1 07/25/20 21 Active atorvastatin (LIPITOR) 20 mg tabletIndications :Type 2 diabetes mellitus without complication, without long-term current use of insulin ([facility]) TAKE 1 TABLET BY MOUTH EVERY DAY 90 Tablet 1 08/25/20 21 Active TRULICITY 3 mg/0.5 mL pen injector Pres[place] [facility] 01/24/20 22 Active TRELEGY ELLIPTA 200-62.5-25 mcg dsdv Prescribed by pulmonary at [facility] 02/13/20 22 Active montelukast (SINGULAIR) 10 mg tablet Take 10 mg by mouth nightly at bedtime Prescribed by pulmonary at [facility] 02/13/20 22 Active topiramate (TOPAMAX) 50 mg [...] Uncontrolled type 2 diabetes mellitus with hyperglycemia ([facility] 04/03/2021 Wears glasses 02/27/2021 Chronic obstructive pulmonar y disease, unspecified COPD type ([facility]) 02/27/2021 MARTÍN on CPAP 01/06/2021 Obesity, Class II, BMI 35-39.9 11/22/2020 Overview (06/06/2021): Followed by [facility] ([facility]) Bipolar 2 disorder ([facility]) 06/17/2020 Borderline personality disorder ([facility]) 05/27/2020 PCOS (polycystic ovarian syndrome) 05/02/2020 Overview (05/02/2020): Followed by [facility] Chronic neck and back pain 07/20/2019 Vitamin D deficiency 06/04/2019 Severe persistent asthma ([facility]) 019 Chronic post-traumatic headache, not intractable 01/12/2019 Psychophysiological insomnia 12/30/2018 Moderate episode of recurren t major depressive disorder ([facility]) 12/30/2018 Presbyopia 06/02/2018 Overview (06/02/2018): 05/06/18 New spectacle Rx given. Dysmenorrhea 05/18/2018 Overview (05/18/2018): Painful irregular periods/sharp cramping Smoking 04/08/2018 Resolved Problems Problem Noted Date Diagnosed Date Resolved Date 'Fcncy-nyk-jakhu' infant wit h signs of malnutrition ([facility]) 06/13/2019 11/01/2020 BMI 40.0-44.9, adult ([facility]) 05/31/2019 02/27/2021 RUQ pain 05/31/2019 11/01/2020 [...] 03/17/20 22, 02/27/2021, 11/01/2020, Additional history exists Otz-BAZCO-66 ( season) 2025 021, 03/04/2021 Imm-Influenza (#1) [...] 02/13/2022 9:01 AM EDT Bipolar 2 disorder ([facility]) LIPID PANEL Routine 02/13/2022 9:01 AM EDT Bipolar 2 disorder ([facility]) HEMOGLOBIN GLYCOSYLATED A1C Routine 02/13/2022 9:01 AM EDT Bipolar 2 disorder ([facility]) THINPREP PAP & HPV MRNA E6/E7 RFLX HPV 16,18/[address]/NG Routine 07/22/2021 1:35 PM EDT Encounter for cervical Pap smear with pelvic exam MICROALBUMIN/CREATININ E RATIO, URINE, RANDOM Routine 11/05/2020 10:12 AM EST Type 2 diabetes mellitus without complication, without long-term current use of insulin ([facility]) HISTORIC MAMMOGRAM 06/21/2019 3: 00 AM EDT ANTIBODY HIV-1&HIV-2 SINGLE RESULT Routine 04/11/2018 8:55 AM EDT Routine adult health maintenance HEPATITIS C ANTIBODY Routine 04/11/2018 8:55 AM EDT Routine adult health maintenance from Last 3 Months or Most Recently Relevant to Health Maintenance Results * (ABNORMAL) HEMOGLOBIN, GLYCOSYLATED (A1C) (02/13/2022 9:01 AM EDT) HEMOGLOBIN A1C 9.6(H) <5.7 % of total Hgb [facility] Comment: For someone without known diabetes, a [...] AM EDT 02/13/2022 9:02 AM EDT Narrative [facility] - 02/13/2022 9:01 PM EDT FASTING:YES Tiara Silver APRN LAB - BLOOD DRAW Edited Result - Final Performing Organization Address City/[facility]/ZIP Co de Phone Number [facility] [address] [address], [facility] [address] [address] * (ABNORMAL) LIPID PANEL (02/13/2022 9:01 AM EDT) [facility] CHOLESTEROL, TOTAL 115 <200 mg/dL [facility] HDL CHOLESTEROL 40(L) > OR = 50 mg/dL [facility] TRIGLYCERIDES 75 <150 mg/dL [facility] LDL-CHOLESTEROL 59 99 mg/dL (calc) [facility] Comment: Reference range: <100 Desirable range <100 mg/dL for primary prevention; <70 mg/dL for patients with CHD or diabetic patients with > or = 2 CHD risk factors. LDL-C is now calculated using the Snidhu calculation, which is a validated novel method providing better accuracy than the Friedewald equation in the estimation of LDL-C. Jeancarlos SS et al. AUDRA. 2013;310(19): 9785-0783 (http://education.The Poshpacker/faq/SDQ466) CHOL/HDLC RATIO 2.9 <5.0 (calc) [facility] NON-HDL CHOLESTEROL 75 <130 mg/dL (calc) [facility] Comment: For patients with diabetes plus 1 major ASCVD risk factor, treating to a non-HDL-C goal of <100 mg/dL (LDL-C of <70 mg/dL) is considered a therapeutic option. Blood Blood / Unknown 02/13/2022 9 :01 AM EDT 02/13/2022 9:02 AM EDT Narrative [facility] - 02/13/2022 9:01 PM EDT FASTING:YES us Tiara Silver APRN LAB - BLOOD DRAW Final Result Performing Organization Address City/[facility]/ZIP Co de Phone Number [facility] [address] [address], [facility] [address] [address] * (ABNORMAL) COMPREHENSIVE METABOLIC PANEL (02/13/2022 9:01 AM EDT) GLUCOSE 280(H) 65 - 99 mg/dL [facility] Comment: Fasting reference interval For someone without known diabetes, a glucose value >125 mg/dL indicates that they may have diabetes and this should be confirmed with a follow-up test. UREA NITROGEN (BUN) 11 7 - 25 mg/dL [facility] CREATININE (blood) 0.61 0.50 - 1.10 mg/dL [facility] GFR ESTIMATED 110 > OR = 60 mL/min/1 .73m2 [facility] EGFR 128 > OR = 60 mL/min/1 .73m2 [facility] BUN/CREATININE RATIO NOT APPLICABLE 6 - 22 [facility] SODIUM 136 135 - 146 mmol/L [facility] POTASSIUM 4.2 3.5 - 5.3 mmol/L [facility] CHLORIDE 101 98 - 110 mmol/L [facility] CARBON DIOXIDE 29 20 - 32 mmol/L [facility] CALCIUM 9.4 8.6 - 10.2 mg/dL [facility] PROTEIN, TOTAL 7.0 6.1 - 8.1 g/dL [facility] ALBUMIN 3.9 3.6 - 5.1 g/dL [facility] GLOBULIN 3.1 1.9 - 3.7 g/dL (calc) [facility] ALBUMIN/GLOBUL IN RATIO 1.3 1.0 - 2.5 (calc) [facility] BILIRUBIN, TOTAL 0.4 0.2 - 1.2 mg/dL [facility] ALKALINE PHOSPHATASE 82 31 - 125 U/L [facility] AST 12 10 - 30 U/L [facility] ALT 16 6 - 29 U/L [facility] Blood Blood / Unknown 02/13/2022 9 :01 AM EDT 02/13/2022 9:02 AM EDT Narrative [facility] - 02/13/2022 9:01 PM EDT FASTING:YES Tiara Nadeem HUMAN RESOURCES PROFESSIONAL LAB - BLOOD DRAW Edited Result - Final [facility] [address] [address], [facility] [address] [address] * THINPREP PAP & HPV MRNA E6/E7 RFLX HPV 16,18/[address]/NG (07/22/2021 1:35 PM EDT) CHLAMYDIA TRACHOMATIS RNA, TMA NOT DETECTED NOT DETECTED [facility] NEISSERIA GONORRHOEAE RNA, TMA NOT DETECTED NOT DETECTED [facility] COMMENT [facility] CLINICAL INFORMATION See Note [facility] Comment:ROUTINE EXAM LMP See Note [employer] Comment:NONE GIVEN PREV. PAP See Note [employer] Comment:NONE GIVEN PREV. BX See Note [employer] Comment:NONE GIVEN SOURCE See Note [employer] Comment:Cervix STATEMENT OF ADEQUACY See Note [employer] Comment: Satisfactory for evaluation. Endocervical/transformation zone component absent. INTERPRETATION/RESU LT See Note [facility] Comment:Negative for intraep ithelial lesion or malignancy. SHORTS SIFTER See Note [facility] Stereotypes [facility] Comment: DMM, CT(ASCP) CT screening location: [address] [address] COMMENT [facility] HPV MRNA E6/E7 Not Detected Not Detected [employer] Comment: Methodology: Utilities Manager-Mediated Amplification This assay detects E6/E7 viral messenger RNA (mRNA) from 14 high-risk HPV types (16,18,31,33,35,39,45,51,52,56,58,59,66,68). The analytical performance characteristics of this assay have been determined by [email or web address]. The modifications have not been cleared or approved by the FDA. This assay has been validated pursuant to the CLIA regulations and is used for clinical purposes. For additional information, please refer to http://education.[employer]print [employer]/faq/GEJ860e4 (This link if provided for information/ educational purposes only.) CYTOLOGY Cervix uteri structure / Unknown 07/22/2021 1:35 PM EDT 07/23/2021 6:22 AM EDT Narrative [facility] - 07/24/2021 1:46 PM EDT EXPLANATORY NOTE: [...] test SurePath(TM) specimens have been determined by [email or web address]. The modifications have not been cleared or approved by the FDA. This assay has been validated pursuant to the CLIA regulations and is used for clinical purposes. For additional information, please refer to https://education.[employer]/faq/FHM286 (This link is being provided for information/ educational purposes only.) Zach RAO LAB - PATHOLOGY AND CYTOLOGY A MBULATORY Final Result [facility] [address] [address], [facility] [address] [address] * (ABNORMAL) MICROALBUMIN/CREATININE RATIO, URINE, RANDOM (11/05/2020 10:12 AM EST) MICROALBUMIN, RANDOM 66.6(H) 0.0 - 29.0 mg/L [facility] MICROALB/CRE RATIO RANDOM 18.1 0.0 - 30.0 mg/G [facility] CREATININE, RANDOM URINE 367 mg/dL [facility] 11/05/2020 10:1 2 AM EST 11/05/2020 10:35 AM EST [facility] - 11/05/2020 1:51 PM EST [place], a member of [address] [address] Drying Machine Tender - Wilma York MD PT ID [id number] ORD# [id number] Sydni [facility] URINE AMBULATORY Final Resul t [facility] [address] [place] [address], * HISTORIC MAMMOGRAM (06/21/2019 3:00 AM EDT) 06/21/2019 3:00 AM EDT Babita Lau PA-C IMG MAMMO Final Result * HEPATITIS C ANTIBODY (04/11/2018 8:55 AM EDT) HEPATITIS C VIRUS SCREEN NEGATIVE NEGATIVE [facility] Blood specimen (specimen) Blood / Unknown 04/11/2018 8:55 AM EDT 04/11/2018 9:20 AM EDT [facility] - 04/11/2018 1:08 PM EDT [place] [address] [place] [address] PT ID [id number] ORD# [id number] Rosita Otto NP LAB - BLOOD DRAW Final Result [address] [address], * HIV-1 & HIV-2 ANTIBODIES (04/11/2018 8:55 AM EDT) Pathologist [facility] HIV 1 AND 2 ANTIBODY SCREEN NEGATIVE NEGATIVE [facility] Comment: This assay is a 4th generation [...] 8:55 AM EDT 04/11/2018 9:20 AM EDT [facility] - 04/11/2018 1:08 PM EDT [place] [address] [place] [address] PT ID [id number] ORD# [id number] Rosita Otto GLASS BEVELER LAB - BLOOD DRAW Final Result [facility] [address] [place] [address], from Last 3 Months or Most Recently Relevant to Health Maintenance Insurance [employer] [facility] Care Teams Brineyard Supervisor Relationship Specialty Start Date End Date Gaston Canada FNP-C [address] [place] [address] PCP - General Internal Medicine 11/30/23
--- OUTSIDE RECORDS SUMMARY | 2025-08-20 07:00 | XMS_ITS | Data Portability ---
Author Organization [place] - [facility], Allergy Address [address] [address] Assessment Encounter Date Assessment Date Assessment LastModified [...] 12/31/2024 13:42:14 01/29/2025 01/29/2025 49 year old Burkinan speaking female presents for follow up of [...] oil 0.01 % ear drops 2024 025 [place] [id number], [address] [place], [place], [id number], 09:20:04 Patient TargetsNo targets recorded. Patient InstructionsNo instructions recorded. Reason for Referral None Reported. Problems Name Problem SNOMED Code Status Onset Date Resolution Date Notes Provider Name and Address Organization Details Recorded Time Bleeding from nose 657967434 Active 2022 Epistaxis ; Note: Date Diagnosed : 04/07/2023 12:31 PM (R04.0) Not Available [facility] 4 03:03:35 Otorrhagi a of bilateral ears 22680742842 40931 Active 2022 Otorrhagi a, bilateral ; Note: Date Diagnosed : 04/07/2023 12:31 PM (H92.23) Not Available [facility] 4 03:03:37 Abnormal auditory perceptio n 34153651 Active 2022 Other abnormal auditory perceptio ns, bilateral ; Note: Date Diagnosed : 04/07/2023 10:37 AM (H93.293) Not Available [facility] 4 03:03:35 Bilateral tinnitus 52666860343 02 Active 2022 Tinnitus, bilateral ; Note: Date Diagnosed : 06/21/2023 2:27 PM (H93.13) Not Available [facility] 4 03:03:35 Itching of ear 425881724 Active 2024 Rey larry [place] - [facility] 5 09:19:31 Problem Notes None recorded. Medical Equipment None Reported. Allergies Allergen ID Allergen Name Allergen Category Reaction Reaction Severity Criticality Documentation Date Start Date Code Code System Note Provider Name and Address Organization Details Recorded Time 816274 latex environme nt,medica tion other Not available Not available 04/04/2024 27144 91 RxNorm React ion: Unkno wn; Not Available [facility] 01:08:26 Medications Name Sig Start [...] Lancets 28 gauge active Medicatio n ID: [id number] Br and Name: FreeStyle Lancets S end [...] % topical cream active Medicatio n ID: [id number] Br and Name: capsaicin Send Method: E-Prescri bed Subs Allowed: subs OK Medica tionGener icName: capsaicin Not Available Not Available Not Available mirtazapin e 15 mg tablet active Not Available Not Available Not Available gabapentin 100 mg capsule active Medicatio n ID: [id number] Br and Name: gabapenti n Send Method: [...] % topical cream active Medicatio n ID: [id number] Br and Name: clotrimaz ole Send Method: [...] 25 mg capsule active Medicatio n ID: [id number] Br and Name: zonisamid e Send Method: [...] % topical gel active Medicatio n ID: [id number] Br and Name: diclofena c sodium Se nd Method: E-Prescri bed Subs Allowed: subs OK Medica tionGener icName: diclofena c sodium Not Available Not Available Not Available diclofenac 1.5 % topical drops active Medicatio n ID: [id number] Br and Name: diclofena c sodium Se [...] Fastclix Lancet Drum active Medicatio n ID: [id number] Br and Name: Accu-Chek Fastclix Lancet Drum Send Method: E-Prescri bed Subs Allowed: subs OK Medica tionGener icName: Accu-Chek Fastclix Lancet Drum Not Available Not Available Not Available FreeStyle Davi 14 Day Sensor kit active Not Available Not Available Not Available FreeStyle Davi 2 Hamill USE TO MONITOR BLOOD SUGAR active Not Available Not Available No t Available Trulicity 3 mg/0.5 mL subcutaneo us pen injector active Not Available Not Available Not Available Trulicity 4.5 mg/0.5 mL subcutaneo us pen injector active Medicatio n ID: [id number] Br and Name: Trulicity Send Method: E-Prescri [...] Updated DateTime 12/29/2024 162.56 cm 36.9 kg/m2 79673.36 g Alicia Dunham [place] - [facility] 12/29/2024 15:23:55 Date Recorded Body height Body mass index (BMI) Body weight Provider Name and Address Organization Details Last Updated DateTime 01/29/2025 162.56 cm 36.9 kg/m2 43520.36 g Virginia Ho [facility] 01/29/2025 08:44:18 Social History None recorded. Functional Status None recorded. Mental Status None recorded. Family History Nothing Reported. Medical History No medical history recorded. Gynecological HistoryNo gynecological history recorded. Obstetrics History GPAL:G 0 P 0 0 0 0 Past Encounters Encounter ID Performer Location Encounter Start Date Encounter Closed Date Diagnosis/Indication Diagnosis SNOMED-CT Code Diagnosis ICD10 Code Diagnosis IMO Codes Diagnosis Note [id number] REY WHEATLEY PA-C [facility] on [address] [place] [phone] 12/29/2024 14:35:20 12/29/2024 15:38:31 Bleeding from nose 297403783 R04.0 Otorrhagia of bilateral ears 4085626891 548511 H92.23 [id number] REY WHEATLEY PA-C [facility] on [address] [place] [address] 01/29/2025 08:40:30 01/29/2025 09:21:14 Itching of ear 085700234 L29.81 Bleeding from nose 08566 6005 R04.0 Otorrhagia of bilateral ears 3556187291 036537 H92.23 Health Concerns Section Related Observation LastModified by Organization Detai ls LastModified Time None Recorded Concern Status LastModified by Organization Details LastModified Time None Recorded Advance Directives Directive None Recorded Payers Insurance Date Sequence Insurance Name Policy Number Policy Eric Covered Member ID Eric Member ID Guarantor Name 01/31/2025 1 [facility] [id number] Susan Alfonso [id number] Susan Alfonso Notes Date Note Type Note Provider Name and Address Organization Details Recorded Time 12/29/2024 text/html ROS as noted in the HPI 49 year old Burkinan speaking female presents reporting epistaxis that started [...] some blood on the qtip. Communication via derrick boat leverman on ipad. HALEY SANDOVAL MD [address] [place] [address], [phone], [facility] - [facility] 01/01/2025 19:43:47 01/29/2025 text/html ROS as noted in the HPI 49 year old Burkinan speaking female presents for follow up of her ears and nose. Since her visit last month she has had no nosebleeds or bleeding from the ears. She has been using nasal saline and gel in the nose. She does complain of some itching in the ears. HALEY SANDOVAL MD [address] [place] [address],[address], [address], [place] - [facility] 01/29/2025 09:40:28 OBGyn Episode No OBEpisode recorded.
[2025-08-20 07:12] LABS: MANUAL DIFF FLAG NO
[2025-08-20 08:02] LABS: Hematocrit 45.7 % (37.0-47.0); Hemoglobin 14.7 g/dl (12.0-16.0); Imm Gran Abs Auto 0.07 X10*3/uL (0.00-0.03); Imm Gran Pct Auto 0.7 % (0.0-0.4); Lymphocytes Absolute Auto 3.3 X10*3/uL (1.2-4.9); Mean Corpuscular HGB Conc 32.2 g/dl (31.0-35.0); Mean Corpuscular Hemoglobin 26.5 pg (27.0-33.0); Mean Corpuscular Volume 82.5 fL (80.0-98.0); NRBC Abs Auto 0.000 X10*3/uL (0.0-0.012); NRBC Pct Auto 0.0 /100WBC (0.0-0.2); Platelet Count 182 X10*3/uL (160-400); Red Blood Count 5.54 X10*6/uL (4.20-5.50); White Blood Count 10.4 X10*3/uL (4.8-10.8)
[2025-08-22 13:33] LABS: Immunoglobulin G Subclass 1 505 mg/dL (382-929); Immunoglobulin G Subclass 2 196 mg/dL (241-700); Immunoglobulin G Subclass 3 23 mg/dL (22-178); Immunoglobulin G Subclass 4 76.6 mg/dL (4-86); Immunoglobulin G Total 883 mg/dL (600-1640)
[2025-08-28 14:28] LABS: Asperg fumigatus Precip Abs NEGATIVE (NEGATIVE); Micropoly faeni Abs NEGATIVE (NEGATIVE); Saccharo pora viridis Abs NEGATIVE (NEGATIVE); Thermo candidus Abs NEGATIVE (NEGATIVE)
== END 2025-08-20 06:57 | disposition home or self-care (01) ==
LOC: HO.LAB 06:56
PROVIDERS: Visit Provider Hospitalist
DX: J40 Bronchitis, not specified as acute or chronic (principal); R91.8 Other nonspecific abnormal finding of lung field
CPT/HCPCS: 36415; 82784; 82785; 85025; 85652; 86331; 86606; 86609

== ENCOUNTER 2025-08-21 18:53 | Emergency (ER) | payer OTHER, SELFPAY ==
--- NOTE | ~2025-08-21 | XR_ITS ---
CLINICAL HISTORY: CP 2 view chest x-ray Comparison: Chest x-ray from 07/20/2025 Findings: No consolidation, pneumothorax, or pleural effusion. No significant change of the imaged mediastinum or right hilar fullness. No definite osseous change in the [id number]. IMPRESSION: No consolidation. This document has been electronically signed by: Satish Covington MD on 08/21/2025 20:03:31
[2025-08-21 19:05] VITALS: BP 129/68; PULSE 99; RESP 15; TEMP 36.9; O2SAT 94; BMI 36.0
--- NOTE | 2025-08-21 19:10 | ED.GENADULT ---
HPI - General Adult General Chief complaint: Headache Stated complaint: Fever/Headache/Nausea Time Seen by Provider: 08/21/25 23:00 Source: patient Limitations: no limitations and language barrier History of Present Illness ED Provider: Apoorva Monsivais PA-C HPI narrative: 50-year-old female with a history of asthma/COPD overlap, MARTÍN, morbid obesity, diabetes, who presents with cough and cold symptoms x1 day. Associated headache, generalized malaise and fever. Patient has a chronic cough, often expelling mucous. Denies wheezing or excessive use of inhalers. Related Data Home Medications ?Medication ?Instructions ?Recorded ?Confirmed hydroxyzine HCl 25 mg tablet 25 mg PO BID PRN 06/19/22 11/08/24 dulaglutide 4.5 mg/0.5 mL mg subcut 02/22/23 11/08/24 subcutaneous pen injector (Trulicity) epinephrine 0.3 mg/0.3 mL 0.3 mg IM ONCE PRN anaphylaxis 02/22/23 11/08/24 injection, auto-injector insulin glargine 100 unit/mL (3 unit subcut 02/22/23 11/08/24 mL) subcutaneous pen (Lantus Solostar U-100 Insulin) insulin lispro 100 unit/mL subcut 02/22/23 11/08/24 subcutaneous solution nebulizers 02/22/23 11/08/24 gabapentin 300 mg capsule 600 mg PO TID 05/07/25 Previous Rx's ?Medication ?Instructions ?Recorded cetirizine 10 mg tablet 10 mg PO DAILY PRN for allergies 12/08/22 #90 tabs montelukast 10 mg tablet 10 mg PO BEDTIME #30 tabs 04/24/24 bupropion HCl (smoking deter) 150 150 mg PO BID 30 days #60 tabs 04/03/25 mg tablet,12 hr sustained-release(smoking deterrent) cyclobenzaprine 10 mg tablet 10 mg PO TID PRN muscle spasm #20 04/08/25 tabs albuterol sulfate 2.5 mg/3 mL 2.5 mg (3 mL) inhalation Q6H PRN 05/07/25 (0.083 %) solution for nebulization shortness of breath or wheezing #180 mL albuterol sulfate 90 mcg/actuation 2 inh inhalation Q6H PRN shortness 05/07/25 aerosol inhaler of breath or wheezing 30 days #18 grams fluticasone fur. 200 mcg-umeclid 1 ea PO DAILY #60 ea 05/08/25 62.5 mcg-vilant 25 mcg inhalat.powder (Trelegy Ellipta) roflumilast 500 mcg tablet 500 mcg PO DAILY 30 days #30 tabs 07/05/25 (Daliresp) nicotine 21 mg/24 hr daily 1 patch transdermal DAILY 28 days 07/09/25 transdermal patch #28 ea benzonatate 200 mg capsule 200 mg PO TID PRN cough #15 caps 07/20/25 codeine 10 mg-guaifenesin 100 mg/5 10 ml PO Q6H PRN cough 10 days 08/10/25 mL oral liquid #300 mL doxycycline monohydrate 100 mg 100 mg PO BID 14 days #28 tabs 08/10/25 tablet fluticasone propionate 50 2 spray intranasal DAILY #16 grams 08/10/25 mcg/actuation nasal spray,suspension oxymetazoline 0.05 % nasal spray 2 spray intranasal Q12H PRN nasal 08/10/25 (Afrin (oxymetazoline)) congestion 5 days #30 mL pseudoephedrine HCl 120 mg 120 mg PO Q12H 30 days #60 tabs 08/10/25 tablet,extended release Allergies Allergy/AdvReac Type Severity Reaction Status Date / Time latex Allergy Unknown Verified 08/21/25 19:09 Review of Systems Review of Systems: Yes all other systems are reviewed and are negative Constitutional: Constitutional: Reports fatigue, Reports fever(s), Reports headache(s) and Reports malaise ENT: Reports headache(s) and Denies neck pain Cardiovascular: Cardiovascular: Denies chest pain Respiratory: Respiratory: Reports chest congestion, Reports cough and Denies wheezing Gastrointestinal: Gastrointestinal: Denies abdominal pain, Denies nausea and Denies vomiting Musculoskeletal: Musculoskeletal: Reports myalgias and Denies neck pain Neurologic: Reports headache(s) Endocrine: Endocrine: Reports fatigue Allergic/Immunologic: Allergic/Immunologic: Denies wheezing PMFSH Past Medical History Attestation statement: The following information was validated with the patient. Medical History (Updated 08/21/25 @ 23:55 by JALEN Yepez) Pulmonary nodule Asthma-COPD overlap syndrome MARTÍN on CPAP Chest pain Tobacco dependence Chronic rhinitis Asthma PCOS (polycystic ovarian syndrome) Carpal tunnel syndrome Anxiety Vitamin D deficiency Infertility Depression Bipolar 2 disorder Asthma Sleep apnea Type 2 diabetes mellitus Surgical History Hx of wisdom tooth extraction Family History Family History Mother Diabetes Father No problems noted. Sister No problems noted. Brother No problems noted. Social History Social History Alcohol intake: never Patient Tobacco Use Status: Current everyday Tobacco user Tobacco use type: Cigarette Cigarette Packs Per Day: 2 Cigarettes Per Day: 20 Years Smoked: 29 Advance Directives: No Advance Directives Information Provided: No Do you have a plan to hurt others: No Plan Physical Exam ED Vital Signs: Vital Signs - 24 hr 08/21/25 19:05 08/21/25 23:03 Temperature 98.4 F 97.2 F Pulse Rate 99 97 Respiratory Rate 15 20 Blood Pressure 129/68 125/81 Pulse Oximetry 94 95 Oxygen Delivery Method Room Air Room Air BMI result Body Mass Index 36.0 Const Other: Alert well-appearing Orientation/consciousness: patient oriented x3 Resp Other: Nonlabored respirations, lungs clear to auscultation no wheezing, occasional cough Cardio Other: Normal peripheral perfusion Skin Other: Warm dry no rash Neuro General: patient oriented x3, gait normal, no focal motor deficits and CN's II-XI intact bilaterally Psych Other: Cooperative Course Course Course Narrative: This is an RME: Additional HPI, ROS, PE not included below will be deferred to primary provider. RME assessment and note performed by: Shirley Guthrie PA-C This is a 50-year-old female who presents emergency department with complaints of headache, nausea, vomiting, fevers since yesterday. Recent diagnosis of bronchitis. History of COPD. Plan: Labs, EKG, chest x-ray, viral swabs, further ER evaluation needed. Medical Decision Making Medical Decision Making MDM Narrative: 50-year-old female with a history of asthma/COPD overlap, MARTÍN, morbid obesity, diabetes, who presents with cough and cold symptoms x1 day. Associated headache, generalized malaise and fever. Patient has a chronic cough, often expelling mucous. Denies wheezing or excessive use of inhalers. Problem: Asthma/COPD History: Per patient I have considered the following differential diagnoses: COPD/asthma exacerbation, pneumonia, bronchitis, viral syndrome Plan: Screening labs including viral panel and chest x-ray obtained from triage, the patient has COVID. Chest x-ray reveals no pneumonia. She is also not having concurrent asthma/COPD exacerbation. We will send with home care instructions. I have independently reviewed the following tests: Labs: No leukocytosis, not anemic, no electrolyte abnormality noted, COVID positive Chest x-ray:Findings: No consolidation, pneumothorax, or pleural effusion. No significant change of the imaged mediastinum or right hilar fullness. No definite osseous change in the yayhr-ow-kohp. IMPRESSION: No consolidation. Differential Diagnosis Differential Diagnoses: The differential diagnosis associated with the presentation includes See medical decision-making Admission/Observation Consideration of admission/observation: Escalation of care including admission/observation considered Not applicable Lab Data MDM Lab Attestation statement: I reviewed the patient's lab results. 08/21/25 19:43 08/21/25 19:43 Labs: Lab Results 08/21/25 Range/Units 19:43 WBC 7.0 (4.8-10.8) X10*3/uL RBC 5.78 H (4.20-5.50) X10*6/uL Hgb 15.4 (12.0-16.0) g/dl Hct 46.4 (37.0-47.0) % MCV 80.3 (80.0-98.0) fL MCH 26.6 L (27.0-33.0) pg MCHC 33.2 (31.0-35.0) g/dl RDW 14.4 (11.0-16.0) % Plt Count 180 (160-400) X10*3/uL MPV 12.2 (9.4-12.3) fL Immature Gran % (Auto) 0.4 (0.0-0.4) % Neut % (Auto) 60.3 (45-73) % Lymph % (Auto) 26.6 (20-40) % Milam % (Auto) 9.5 (2-11) % Eos % (Auto) 2.3 (0-4) % Baso % (Auto) 0.9 (0-2) % Lymph # (Auto) 1.9 (1.2-4.9) X10*3/uL Milam # (Auto) 0.7 (0.1-1.2) X10*3/uL Eos # (Auto) 0.2 (0.0-0.4) X10*3/uL Baso # (Auto) 0.1 (0.0-0.2) X10*3/uL Abs Immat Gran (auto) 0.03 (0.00-0.03) X10*3/uL Absolute Neuts (auto) 4.2 (2.0-8.3) x10*3/uL Absolute Nucleated RBC 0.000 (0.0-0.012) X10*3/uL Nucleated RBC % (auto) 0.0 (0.0-0.2) /100WBC Sodium 140 (135-145) mmol/L Potassium 4.1 (3.3-5.1) mmol/L Chloride 103 (96-108) mmol/L Carbon Dioxide 28 (22-29) mmol/L Anion Gap 13 (12-20) BUN 9 (9-16) mg/dL Creatinine 0.80 (0.5-1.4) mg/dL Estim Creat Clear Calc 96.2 Estimated GFR > 60 Random Glucose 161 H (60-115) mg/dL Calcium 9.6 (8.4-10.2) mg/dL Magnesium 1.9 (1.6-2.6) mg/dL Total Bilirubin 0.4 (0.0-1.0) mg/dL Direct Bilirubin 0.2 (0.0-0.5) mg/dL AST 46 H (5-31) U/L ALT 39 H (0-31) U/L Alkaline Phosphatase 79 (39-117) U/L Total Protein 7.3 (6.5-8.0) g/dL Albumin 4.2 (3.5-5.0) g/dL COVID-19 (JENNY) Positive A (Negative) COVID-19 Clin Com See Note Influenza Type A (CHARO) Negative (Negative) Influenza Type B (CHARO) Negative (Negative) Influenza A & B Note See Note Radiology Impression Discussion of test interpretation with radiology: I have reviewed the radiologist's reading. Discharge Plan Discharge Clinical Impression: COVID-19 Patient Disposition: Home, Self-Care Instructions: COVID-19 (Coronavirus Disease 2019) (ED) Additional Instructions: You tested positive for COVID. See home care instructions. You should self isolate for 5 days. The remainder of your screening labs were normal, the chest x-ray is negative for pneumonia. You can use [id number] Tylenol 1000 mg taken every 8 hours, alternated with [id number] ibuprofen 600 mg taken every 6 hours with food, for fever, body ache and headache. For your productive cough, you can use [id number] Mucinex, this will help to thin your secretions. Follow up with your primary care provider as needed. Prescriptions: No Action cetirizine 10 mg tablet 10 mg PO DAILY PRN (Reason: for allergies) Qty: 90 0RF montelukast 10 mg tablet 10 mg PO BEDTIME Qty: 30 0RF bupropion HCl (smoking deter) 150 mg tablet extended release 12 hr 150 mg PO BID 30 Days Qty: 60 6RF Trelegy Ellipta 200-62.5-25 mcg blister with device 1 ea PO DAILY Qty: 60 0RF roflumilast [Daliresp] 500 mcg tablet 500 mcg PO DAILY 30 Days Qty: 30 11RF nicotine 21 mg/24 hr patch 24 hour 1 patch transdermal DAILY 28 Days Qty: 28 3RF cyclobenzaprine 10 mg tablet 10 mg PO TID PRN (Reason: muscle spasm) Qty: 20 0RF benzonatate 200 mg capsule 200 mg PO TID PRN (Reason: cough) Qty: 15 0RF hydroxyzine HCl 25 mg tablet 25 mg PO BID PRN (DME) nebulizers Misc See Rx Instructions .Route Rx Instructions: As directed Trulicity 4.5 mg/0.5 mL pen injector subcut insulin glargine [Lantus Solostar U-100 Insulin] 100 unit/mL (3 mL) insulin pen subcut insulin lispro 100 unit/mL solution subcut epinephrine 0.3 mg/0.3 mL auto-injector 0.3 mg IM ONCE PRN (Reason: anaphylaxis) albuterol sulfate 2.5 mg /3 mL (0.083 %) solution for nebulization 2.5 mg inhalation ONCE Qty: 3 0RF gabapentin 300 mg capsule 600 mg PO TID albuterol sulfate 2.5 mg /3 mL (0.083 %) solution for nebulization 2.5 mg inhalation Q6H PRN (Reason: shortness of breath or wheezing) Qty: 180 12RF albuterol sulfate 90 mcg/actuation HFA aerosol inhaler 2 inh inhalation Q6H PRN (Reason: shortness of breath or wheezing) 30 Days Qty: 18 12RF fluticasone propionate 50 mcg/actuation spray,suspension 2 spray intranasal DAILY Qty: 16 0RF doxycycline monohydrate 100 mg tablet 100 mg PO BID 14 Days Qty: 28 0RF codeine-guaifenesin 10-100 mg/5 mL liquid 10 ml PO Q6H PRN (Reason: cough) 10 Days Qty: 300 0RF oxymetazoline [Afrin (oxymetazoline)] 0.05 % spray,non-aerosol 2 spray intranasal Q12H PRN (Reason: nasal congestion) 5 Days Qty: 30 0RF pseudoephedrine HCl 120 mg tablet extended release 120 mg PO Q12H 30 Days Qty: 60 1RF Print Language: [place]
[2025-08-21 19:47] LABS: MANUAL DIFF FLAG NO
[2025-08-21 19:57] LABS: COVID-19 Test Positive (Negative); Hematocrit 46.4 % (37.0-47.0); Hemoglobin 15.4 g/dl (12.0-16.0); IDNOW Serial# 6674DD1D; Imm Gran Abs Auto 0.03 X10*3/uL (0.00-0.03); Imm Gran Pct Auto 0.4 % (0.0-0.4); Lymphocytes Absolute Auto 1.9 X10*3/uL (1.2-4.9); Mean Corpuscular HGB Conc 33.2 g/dl (31.0-35.0); Mean Corpuscular Hemoglobin 26.6 pg (27.0-33.0); Mean Corpuscular Volume 80.3 fL (80.0-98.0); NRBC Abs Auto 0.000 X10*3/uL (0.0-0.012); NRBC Pct Auto 0.0 /100WBC (0.0-0.2); Platelet Count 180 X10*3/uL (160-400); Red Blood Count 5.78 X10*6/uL (4.20-5.50); White Blood Count 7.0 X10*3/uL (4.8-10.8)
[2025-08-21 20:02] LABS: Alanine Aminotransferase 39 U/L (0-31); Albumin Level 4.2 g/dL (3.5-5.0); Alkaline Phosphatase 79 U/L (39-117); Anion Gap 13 (12-20); Aspartate Amino Transferase 46 U/L (5-31); Blood Urea Nitrogen 9 mg/dL (9-16); Calcium 9.6 mg/dL (8.4-10.2); Carbon Dioxide 28 mmol/L (22-29); Chloride 103 mmol/L (96-108); Creatinine Clr Calc Pharmacy 96.2; Estimated Glomerular Filt Rate > 60; Magnesium 1.9 mg/dL (1.6-2.6); Potassium 4.1 mmol/L (3.3-5.1); Sodium 140 mmol/L (135-145); Total Protein 7.3 g/dL (6.5-8.0)
[2025-08-21 20:04] LABS: IDNOW Serial# 08D9AD1C; Influenza B2 Negative (Negative)
--- OUTSIDE RECORDS SUMMARY | 2025-08-21 21:52 | XMS_ITS | Encounter Summary ---
Author Organization [facility] Address [address] [place] [address] Care Team Providers Care Leather Goods Assembler Name Role Phone Nancie Gaston RELIEF CHARGE NURSE-C Primary Care Provider [phone] Reason for Visit * Reason Comments Care Coordination CHW Adult Comprehens cady Assessment Encounter Details Date Type Department Care Team (Late st Contact Info) Description 04/13/2022 Interim Notes [facility] [address] [place] [address] Kasandra Shelton [address], [place] [id number] Social History Tobacco Use Types Packs/Day Years [...] documented as of this encounter Care Teams Leather Goods Assembler Relationship Specialty Start Date End Date Gaston Canada FNP-C [address] [place] [address] PCP - General Internal Medicine 11/30/23 documented as of this encounter
--- OUTSIDE RECORDS SUMMARY | 2025-08-21 21:52 | XMS_ITS | Clinical Summary ---
Author Organization [facility] Address [address] [place] [address] Care Team Providers Care Process Assistant Name Role Phone Gaston Canada PROCESS LEAD-C Primary Care Provider [phone] Source Comments PLEASE NOTE, if this patient [...] accessoriesIndica tions:Moderate persistent asthma, unspecified whether complicated Susan Alfonso is a 42 year old female with moderate persistent asthma. QID PRN 1 Device 02/09/20 18 Active nebulizer and compressorIndicat ions:Moderate persistent asthma, unspecified whether complicated Susan Alfonso is a 42 year old female with moderate persistent asthma. QID PRN 1 Each 02/09/20 18 Active inhalational spacing deviceIndications :Severe persistent asthma, unspecified whether complicated Use as directed 1 Inhaler 09/28/20 19 [...] controlled type 2 diabetes mellitus with hyperglycemia Inject 70 Units into the skin nightly at bedtime PRESCRIBED BY ENDOCRINOLOGY 15 mL 07/25/20 21 Active norethindrone, contraceptive, (MICRONOR) 0.35 mg tabletIndications :Uses control TK 1 T PO D. PRESCRIBED BY [facility] [employer] 30 Tablet 07/25/20 21 Active dltgmtfq-uzre-ON- calcium-mins (THEREMS-M) 9 mg iron-400 mcg tabIndications:vi tamin deficiency Take 1 Tablet by mouth once daily Indications: vitamin deficiency 90 Tablet 1 07/25/20 21 Active atorvastatin (LIPITOR) 20 mg tabletIndications :Type 2 diabetes mellitus without complication, without long-term current use of insulin TAKE 1 TABLET BY MOUTH EVERY DAY 90 Tablet 1 08/25/20 21 Active TRULICITY 3 mg/0.5 mL pen injector Prescribed by [facility] endocrinology 01/24/20 22 Active TRELEGY ELLIPTA 200-62.5-25 mcg dsdv Prescribed by pulmonary at [facility] 02/13/20 22 Active montelukast (SINGULAIR) 10 mg tablet Take 10 mg by mouth nightly at bedtime Prescribed by pulmonary at [facility] 02/13/20 22 Active topiramate (TOPAMAX) 50 mg [...] Uncontrolled type 2 diabetes mellitus with hyperglycemia ([facility] by [facility] 04/03/2021 Wears glasses 02/27/2021 Chronic obstructive pulmonar y disease, unspecified COPD type 02/27/2021 MARTÍN on CPAP 01/06/2021 Obesity, Class II, BMI 35-39.9 11/22/2020 Overview (06/06/2021): Followed by [facility] ([facility]) Bipolar 2 disorder 06/17/2020 Borderline personality disorder 05/27/2020 PCOS (polycystic ovarian syndrome) 05/02/2020 Overview (05/02/2020): Followed by [facility] Chronic neck and back pain 07/20/2019 Vitamin D deficiency 06/04/2019 Severe persistent asthma 05/31/2019 Chronic post-traumatic headache, not intractable 01/12/2019 Psychophysiological insomnia 12/30/2018 Moderate episode of recurrent major depressive d isorder 12/30/2018 Presbyopia 06/02/2018 Overview (06/02/2018): 05/06/18 New spectacle Rx given. Dysmenorrhea 05/18/2018 Overview (05/18/2018): Painful irregular periods/sharp cramping Smoking 04/08/2018 Resolved Problems Problem Noted Date Diagnosed Date Resolved Date 'Nbzex-bhj-jmtyk' infant wit h signs of malnutrition 06/13/2019 11/01/2020 BMI 40.0-44.9, adult 05/31/2019 021 RUQ pain 05/31/2019 11/01/2020 Panic attacks 12/30/2018 [...] 03/17/20 22, 02/27/2021, 11/01/2020, Additional history exists [id number] (3 - season) 2025 021, 03/04/2021 Imm-Influenza (#1) 2025 [...] 02/13/2022 9:01 AM EDT Bipolar 2 disorder ([facility]) LIPID PANEL Routine 02/13/2022 9:01 AM EDT Bipolar 2 disorder ([facility]) HEMOGLOBIN GLYCOSYLATED A1C Routine 02/13/2022 9:01 AM EDT Bipolar 2 disorder ([facility]) THINPREP PAP & HPV MRNA E6/E7 RFLX HPV 16,18/[address]/NG Routine 07/22/2021 1:35 PM EDT Encounter for cervical Pap smear with pelvic exam MICROALBUMIN/CREATININ E RATIO, URINE, RANDOM Routine 11/05/2020 10:12 AM EST Type 2 diabetes mellitus without complication, without long-term current use of insulin ([facility]) HISTORIC MAMMOGRAM 06/21/2019 3: 00 AM EDT ANTIBODY HIV-1&HIV-2 SINGLE RESULT Routine 04/11/2018 8:55 AM EDT Routine adult health maintenance HEPATITIS C ANTIBODY Routine 04/11/2018 8:55 AM EDT Routine adult health maintenance from Last 3 Months or Most Recently Relevant to Health Maintenance Results * (ABNORMAL) HEMOGLOBIN, GLYCOSYLATED (A1C) (02/13/2022 9:01 AM EDT) HEMOGLOBIN A1C 9.6(H) <5.7 % of total Hgb [facility] [employer] Comment: For someone without known diabetes, a [...] AM EDT 02/13/2022 9:02 AM EDT Narrative [facility] - 02/13/2022 9:01 PM EDT FASTING:YES Tiara Silver APRN LAB - BLOOD DRAW Edited Result - Final [facility] [address] [address], [place] [facility] [address],[facility] [place] [address] * (ABNORMAL) LIPID PANEL (02/13/2022 9:01 AM EDT) CHOLESTEROL, TOTAL 115 <200 mg/dL [facility] HDL CHOLESTEROL 40(L) > OR = 50 mg/dL [facility] TRIGLYCERIDES 75 <150 mg/dL [facility] LDL-CHOLESTEROL 59 99 mg/dL (calc) [facility] Comment: Reference range: <100 Desirable range <100 mg/dL for primary prevention; <70 mg/dL for patients with CHD or diabetic patients with > or = 2 CHD risk factors. LDL-C is now calculated using the Sindhu calculation, which is a validated novel method providing better accuracy than the Friedewald equation in the estimation of LDL-C. Jeancarlos CARTER et al. AUDRA. 2013;310(19): 7145-8852 (http://education.Babelway/faq/BTF209) CHOL/HDLC RATIO 2.9 <5.0 (calc) [facility] NON-HDL CHOLESTEROL 75 <130 mg/dL (calc) [facility] Comment: For patients with diabetes plus 1 major ASCVD risk factor, treating to a non-HDL-C goal of <100 mg/dL (LDL-C of <70 mg/dL) is considered a therapeutic option. Blood Blood / Unknown 02/13/2022 9 :01 AM EDT 02/13/2022 9:02 AM EDT Narrative [facility] - 02/13/2022 9:01 PM EDT FASTING:YES Tiara Silver APRN LAB - BLOOD DRAW Final Result [facility] [address] [address], [place] [facility] [address],[facility] [place] [address] * (ABNORMAL) COMPREHENSIVE METABOLIC PANEL (02/13/2022 9:01 AM EDT) Pathologist [facility] GLUCOSE 280(H) 65 - 99 mg/dL [facility] Comment: Fasting reference interval For someone without known diabetes, a glucose value >125 mg/dL indicates that they may have diabetes and this should be confirmed with a follow-up test. UREA NITROGEN (BUN) 11 7 - 25 mg/dL [facility] CREATININE (blood) 0.61 0.50 - 1.10 mg/dL [facility] GFR ESTIMATED 110 > OR = 60 mL/min/1 .73m2 [facility] EGFR 128 > OR = 60 mL/min/1 .73m2 [facility] BUN/CREATININE RATIO NOT APPLICABLE 6 - 22 [facility] SODIUM 136 135 - 146 mmol/L [facility] POTASSIUM 4.2 3.5 - 5.3 mmol/L [facility] CHLORIDE 101 98 - 110 mmol/L [facility] CARBON DIOXIDE 29 20 - 32 mmol/L [facility] CALCIUM 9.4 8.6 - 10.2 mg/dL [facility] PROTEIN, TOTAL 7.0 6.1 - 8.1 g/dL [facility] ALBUMIN 3.9 3.6 - 5.1 g/dL [facility] GLOBULIN 3.1 1.9 - 3.7 g/dL (calc) [facility] ALBUMIN/GLOBUL IN RATIO 1.3 1.0 - 2.5 (calc) [facility] BILIRUBIN, TOTAL 0.4 0.2 - 1.2 mg/dL [facility] ALKALINE PHOSPHATASE 82 31 - 125 U/L [facility] AST 12 10 - 30 U/L [facility] ALT 16 6 - 29 U/L [facility] Blood Blood / Unknown 02/13/2022 9 :01 AM EDT 02/13/2022 9:02 AM EDT Narrative [facility] - 02/13/2022 9:01 PM EDT FASTING:YES Tiara Silver APRN LAB - BLOOD DRAW Edited Result - Final [facility] [address] [address], [place] [facility] [address] [address] * THINPREP PAP & HPV MRNA E6/E7 RFLX HPV 16,18/[address]/NG (07/22/2021 1:35 PM EDT) CHLAMYDIA TRACHOMATIS RNA, TMA NOT DETECTED NOT DETECTED [facility] NEISSERIA GONORRHOEAE RNA, TMA NOT DETECTED NOT DETECTED [facility] COMMENT D[facility] CLINICAL INFORMATION See Note [facility] Comment:ROUTINE EXAM LMP See Note [facility] Comment:NONE GIVEN PREV. PAP See Note [facility] Comment:NONE GIVEN PREV. BX See Note [facility] Comment:NONE GIVEN SOURCE See Note [facility] Comment:Cervix STATEMENT OF ADEQUACY See Note [facility] Comment: Satisfactory for evaluation. Endocervical/transformation zone component absent. INTERPRETATION/RESU LT See Note [facility] Comment:Negative for intraep ithelial lesion or malignancy. [employer]OR APPRENTICE See Note [facility] [employer] [facility] Comment: DMM, CT(ASCP) CT screening location: [place] [address] COMMENT [facility] HPV MRNA E6/E7 Not Detected Not Detected [facility] Comment: Methodology: Bootmaker-Mediated Amplification This assay detects E6/E7 viral messenger RNA (mRNA) from 14 high-risk HPV types (16,18,31,33,35,39,45,51,52,56,58,59,66,68). The analytical performance characteristics of this assay have been determined by [employer]. The modifications have not been cleared or approved by the FDA. This assay has been validated pursuant to the CLIA regulations and is used for clinical purposes. For additional information, please refer to http://education.Interface21/faq/IIS579s4 (This link if provided for information/ educational purposes only.) CYTOLOGY Cervix uteri structure / Unknown 07/22/2021 1:35 PM EDT 07/23/2021 6:22 AM EDT Narrative [facility] - 07/24/2021 1:46 PM EDT EXPLANATORY [...] test SurePath(TM) specimens have been determined by [employer]. The modifications have not been cleared or approved by the FDA. This assay has been validated pursuant to the CLIA regulations and is used for clinical purposes. For additional information, please refer to https://education.Interface21/faq/WLX840 (This link is being provided for information/ educational purposes only.) Zach RAO LAB - PATHOLOGY AND CYTOLOGY A MBULATORY Final Result Performing Organization Address [facility]/ZIP Co de Phone Number Dang Le [facility] [address] [address], [place] [address] [address] * (ABNORMAL) MICROALBUMIN/CREATININE RATIO, URINE, RANDOM (11/05/2020 10:12 AM EST) MICROALBUMIN, RANDOM 66.6(H) 0.0 - 29.0 mg/L [facility] MICROALB/CRE RATIO RANDOM 18.1 0.0 - 30.0 mg/G [facility] CREATININE, RANDOM URINE 367 mg/dL [facility] 11/05/2020 10:1 2 AM EST 11/05/2020 10:35 AM EST Narrative [facility] - 11/05/2020 1:51 PM EST [employer], a member of [address] [address] Director Of Vital Statistics - Wilma York MD PT ID [id number] ORD# [id number] Sydni Reinoso PROCESS LEAD LAB URINE AMBULATORY Final Resul t Performing Organization Address [facility]/ZIP Co de Phone Number [facility] [address] [address], * HISTORIC MAMMOGRAM (06/21/2019 3:00 AM EDT) 06/21/2019 3:00 AM EDT Babita Lau PA-C IMG MAMMO Final Result * HEPATITIS C ANTIBODY (04/11/2018 8:55 AM EDT) [facility] HEPATITIS C VIRUS SCREEN NEGATIVE NEGATIVE [facility] Blood specimen (specimen) Blood / Unknown 04/11/2018 8:55 AM EDT 04/11/2018 9:20 AM EDT [facility] - 04/11/2018 1:08 PM EDT [employer] [address] [place] [address] PT ID [id number] ORD# [id number] us Rosita Otto NP LAB - BLOOD DRAW Final Result Performing Organization Address [facility] de Phone Number [address] [address], * HIV-1 & HIV-2 ANTIBODIES (04/11/2018 8:55 AM EDT) [facility] HIV 1 AND 2 ANTIBODY SCREEN NEGATIVE NEGATIVE [facility] Comment: This assay is a [...] 04/11/2018 9:20 AM EDT [facility] - 04/11/2018 1:08 PM EDT [employer] [address] [place] [address] PT ID [id number] ORD# [id number] us Rosita Otto NP LAB - BLOOD DRAW Final Result Performing Organization Address [facility] Co de Phone Number [address] [address], from Last 3 Months or Most Recently Relevant to Health Maintenance Insurance [employer] [facility] Care Teams Process Assistant Relationship Specialty Start Date End Date Gaston Canada FNP-C [address] [place] [address] PCP - General Internal Medicine 11/30/23
[2025-08-21 23:03] VITALS: BP 125/81; PULSE 97; RESP 20; TEMP 36.2; O2SAT 95
[2025-08-22 00:19] VITALS: BP 125/81; PULSE 97; RESP 20; TEMP 36.2; O2SAT 95
== END 2025-08-22 00:20 | disposition home or self-care (01) ==
PROVIDERS: Physician Assistant Medical; Emergency Provider Emergency Medicine; PCP Pediatrics
DX: U07.1 COVID-19 (principal); J44.9 Chronic obstructive pulmonary disease, unspecified; E11.9 Type 2 diabetes mellitus without complications; R51.9 Headache, unspecified
CPT/HCPCS: 71046; 80048; 80076; 83735; 85025; 87502; 87635; 99282; 99283

== ENCOUNTER → 2025-08-21 19:13 | Outpatient (BNV) | payer OTHER, SELFPAY | PROVIDERS: Visit Provider Radiology Neuroradiology | DX: R07.9 Chest pain, unspecified (principal) | CPT/HCPCS: 71046 ==

== ENCOUNTER 2025-10-28 13:11 | Emergency (ER) | payer OTHER, SELFPAY ==
--- NOTE | ~2025-10-28 | XR_ITS ---
CLINICAL HISTORY: L hip pain 3 view, pelvis and left hip Comparison: None provided Findings: The bones are intact. Mild left hip osteoarthritis. The soft tissues are unremarkable. IMPRESSION: No acute findings. This document has been electronically signed by: Mayco Tatum MD on 10/28/2025 14:16:27
[2025-10-28 13:25] VITALS: BP 132/79; PULSE 87; RESP 18; TEMP 36.6; O2SAT 98; BMI 36.7
--- NOTE | 2025-10-28 13:25 | ED_ITS ---
HPI - Extremity Injury (Lower) General Chief Complaint: Extremity Injury, Lower Stated Complaint: Knee Leg Pain Time Seen by Provider: 10/28/25 13:31 Source: patient, RN notes reviewed and old records reviewed Mode of arrival: ambulatory History of Present Illness ED Provider: Juliette Spann PA-C HPI Narrative: 50-year-old female with a past medical history asthma/ COPD overlap syndrome, MARTÍN on CPAP, anxiety, depression, presenting to the ED complaining of atraumatic left hip / buttock pain radiating down left lower extremity since yesterday. Denies known injury, trauma, fall, numbness, tingling, weakness, incontinence /retention, hematuria. Taking Tylenol at home with little relief Related Data Home Medications ?Medication ?Instructions ?Recorded ?Confirmed hydroxyzine HCl 25 mg tablet 25 mg PO BID PRN 06/19/22 11/08/24 dulaglutide 4.5 mg/0.5 mL mg subcut 02/22/23 11/08/24 subcutaneous pen injector (Trulicity) epinephrine 0.3 mg/0.3 mL 0.3 mg IM ONCE PRN anaphylax is 02/22/23 11/08/24 injection, auto-injector insulin glargine 100 unit/mL (3 unit subcut 02/22/23 1 01/09/24 mL) subcutaneous pen (Lantus Solostar U-100 Insulin) insulin lispro 100 unit/mL subcut 02/22/23 11/08/24 subcutaneous solution nebulizers 02/22/23 11/08/24 gabapentin 300 mg capsule 600 mg PO TID 05/07/25 Previous Rx's ?Medication ?Instructions ?Recorded cetirizine 10 mg tablet 10 mg PO DAILY PRN for aller gies 12/08/22 #90 tabs montelukast 10 mg tablet 10 mg PO BEDTIME #30 tabs bupropion HCl (smoking deter) 150 150 mg PO BID 30 day s #60 tabs 04/03/25 mg tablet,12 hr sustained-release(smoking deterrent) cyclobenzaprine 10 mg tablet 10 mg PO TID PRN muscle s pasm #20 04/08/25 tabs albuterol sulfate 2.5 mg/3 mL 2.5 mg (3 mL) inhalation Q6H PRN 05/07/25 (0.083 %) solution for nebulization shortness of breat h or wheezing #180 mL albuterol sulfate 90 mcg/actuation 2 inh inhalation Q6 H PRN shortness 05/07/25 aerosol inhaler of breath or wheezing 30 day s #18 grams fluticasone fur. 200 mcg-umeclid 1 ea PO DAILY #60 ea 05/08/25 62.5 mcg-vilant 25 mcg inhalat.powder (Trelegy Ellipta) roflumilast 500 mcg tablet 500 mcg PO DAILY 30 days #3 0 tabs 07/05/25 (Daliresp) nicotine 21 mg/24 hr daily 1 patch transdermal DAILY 2 8 days 07/09/25 transdermal patch #28 ea benzonatate 200 mg capsule 200 mg PO TID PRN cough #15 caps 07/20/25 codeine 10 mg-guaifenesin 100 mg/5 10 ml PO Q6H PRN co ugh 10 days 08/10/25 mL oral liquid #300 mL doxycycline monohydrate 100 mg 100 mg PO BID 14 days # 28 tabs 08/10/25 tablet fluticasone propionate 50 2 spray intranasal DAILY #16 grams 08/10/25 mcg/actuation nasal spray,suspension oxymetazoline 0.05 % nasal spray 2 spray intranasal Q1 2H PRN nasal 08/10/25 (Afrin (oxymetazoline)) congestion 5 days #30 mL pseudoephedrine HCl 120 mg 120 mg PO Q12H 30 days #60 tabs 08/10/25 tablet,extended release amoxicillin 875 mg-potassium 1 tab PO BID 10 days #20 tabs 08/23/25 clavulanate 125 mg tablet nirmatrelvir 300 mg (150 mg See Rx Instructions PO .CO MPLEX 5 08/23/25 x2)-ritonavir 100 mg tablet,dose days #30 ea pack (Paxlovid) acetaminophen 500 mg tablet 500 mg PO Q6H PRN fever or pain 10/28/25 (Tylenol Extra Strength) #14 tabs cyclobenzaprine 5 mg tablet 5 mg PO Q8H PRN pain (scal e score 10/28/25 7-10) 5 days #14 tabs lidocaine 5 % topical patch 1 patch topical DAILY PRN pain #30 10/28/25 (Lidoderm) ea naproxen 500 mg tablet 500 mg PO BID PRN pain 10 da ys #20 10/28/25 tabs Allergies Allergy/AdvReac Type Severity Reaction Status Date / Time latex Allergy Unknown Verified 10/28/25 13:28 Review of Systems Review of Systems: Yes all other systems are reviewed and are negative Constitutional: Constitutional: Reports as per HPI Neurologic: Denies Sensory deficit (Neuro) [facility] Past Medical History Attestation statement: The following information was validated with the patient. Source: old records reviewed Medical History Pulmonary nodule Asthma-COPD overlap syndrome MARTÍN on CPAP Chest pain Tobacco dependence Chronic rhinitis Asthma PCOS (polycystic ovarian syndrome) Carpal tunnel syndrome Anxiety Vitamin D deficiency Infertility Depression Bipolar 2 disorder Asthma Sleep apnea Type 2 diabetes mellitus Surgical History Hx of wisdom tooth extraction Family History Family History Mother Diabetes Father No problems noted. Sister No problems noted. Brother No problems noted. Social History Social History Alcohol intake: never Patient Tobacco Use Status: Current everyday Tobacco user Tobacco use type: Cigarette Cigarette Packs Per Day: 2 Cigarettes Per Day: 20 Years Smoked: 29 Advance Directives: No Advance Directives Information Provided: Yes Do you have a plan to hurt others: No Plan Physical Exam Vital Signs: Vital Signs: Last Vital Signs Temp 98 F 10/28/25 13:25 Pulse 87 10/28/25 13:25 Resp 18 10/28/25 13:25 BP 132/79 10/28/25 13:25 Pulse Ox 98 10/28/25 13:25 O2 Del Method Room Air 10/28/25 13:25 BMI result Body Mass Index 36.7 Const: General: cooperative, healthy appearing and no acute distress Orientation/consciousness: patient oriented x3 Limitations: no limitations HEENT: Head: Yes normal to inspection and Yes atraumatic Ears: hearing grossly normal bilaterally General nose exam: Normal external nose present Face and sinus: Yes normal facial exam Eyes: General: appearance normal, both eyes and all related structures EOM: EOMs intact bilaterally Neck: Neck: Yes normal visual inspection and Yes no meningeal signs Resp: Effort & Inspection: normal respiratory effort and no respiratory distress Cardio: Rate: regular rate GI: Inspection: Yes normal to inspection Palpation (GI): Soft to palpation, nontender, no guarding and not rigid : General: Yes no CVA tenderness Back/Spine/Pelvis: Other: No midline cervical/thoracic/lumbar spinous tenderness/step-off or deformity. + left lower lumbar MSK/ buttock reproducible tenderness. No rash or erythema. No ecchymosis Back: no CVA tenderness Skin: Rashes: no rashes Wounds: no wounds Neuro: Other: Strength intact throughout. No saddle anesthesia. Sensation intact to light touch. Neurovascular intact distally General: patient oriented x3, gait normal, tone normal, moves all extremities and no meningeal signs Cranial nerves: Yes CN's II-XII intact bilaterally Gait exam (Neuro): Normal gait present Motor exam (neuro): 5/5 motor strength present throughout Sensory Exam: No Sensory deficit (Neuro) Extrem: General: Yes normal to inspection Course Course Course Narrative: This is a Rapid Medical Exam performed in triage by Juliette Spann PA-C. Full HPI, ROS and PE to be performed by primary ED provider. 50 yo F wPMHx Asthma- COPD, MARTÍN on CPAP, presenting to the ED c/o Left hip/buttock pain x yesterday radiating down LLE. denies injury/fall, PE: ambulating w/steady gait Plan: XR, pain control 1440--XR hip LT w PEL1V IMPRESSION: No acute findings. Results discussed with patient including worrisome signs and symptoms and strict return precautions, and when to return to the emergency department. They verbalized understanding and feel safe for discharge at this time. Medical Decision Making Medical Decision Making MDM Narrative: 50-year-old female with a past medical history asthma/ COPD overlap syndrome, MARTÍN on CPAP, anxiety, depression, presenting to the ED complaining of atraumatic left hip / buttock pain radiating down left lower extremity since yesterday. on exam vital signs stable, NAD, nontoxic appearing, physical exam as noted above. No midline spinous tenderness or red flag symptoms. Concern for MSK pain/ strain vs sciatica vs ? herniated disc. Low suspicion for cauda equina, cord compression, epidural abscess, renal stone or pyelo Plan: X-ray, pain control Please refer to course for remaining clinical decision making, interpretation of labs/imaging results, and discussions with consultants and/or family members. Differential Diagnosis Differential Diagnoses: The differential diagnosis associated with the pre sentation includes As above Independent Interpretation I performed an independent interpretation of an: Plain X-Ray Radiology Impression Discussion of test interpretation with radiology: I have reviewed the radiologist's reading. External Record Review External record reviewed: Inpatient record, Office record, Outpatient record, Prior outpatient labs, Prior outpatient radiology, Primary care record and Outside ED record Tests considered The following testing was considered but not selected: As above Prescription Management I considered prescription management with: Pain Medication Chronic Conditions Patient?s care impacted by: Other ( asthma, COPD, MARTÍN) Social Determinants Patient?s care significantly limited by Social Determinants of Health including: Other Social Determinant of Health Discharge Plan Discharge Clinical Impression: Left buttock pain, Low back pain Patient Disposition: Home, Self-Care Instructions: Acute Low Back Pain (ED) Additional Instructions: Your x-rays unremarkable Your pain is likely musculoskeletal Flexeril is a muscle relaxer, take at night as it makes you drowsy, do not d rive, drink alcohol, or operate machinery while taking it Naproxen as an anti-inflammatory / pain medication, take with food Lidoderm patches are numbing patches, apply to painful area In addition take Tylenol at home If symptoms persist or worsen, pain becomes unbearable, you developed urinary retention or incontinence, or weakness return to the ED Prescriptions: New acetaminophen [Tylenol Extra Strength] 500 mg tablet 500 mg PO Q6H PRN (Reason: fever or pain) Qty: 14 0RF lidocaine [Lidoderm] 5 % adhesive patch,medicated 1 patch topical DAILY MDD remove after 12 hours PRN (Reason: pain) Qty: 30 0RF Rx Instructions: leave on most painful area for up to 12 hrs naproxen 500 mg tablet 500 mg PO BID PRN (Reason: pain) 10 Days Qty: 20 0RF cyclobenzaprine 5 mg tablet 5 mg PO Q8H PRN (Reason: pain (scale score 7-10)) 5 Days Qty: 14 0RF No Action cetirizine 10 mg tablet 10 mg PO DAILY PRN (Reason: for allergies) Qty: 90 0RF montelukast 10 mg tablet 10 mg PO BEDTIME Qty: 30 0RF bupropion HCl (smoking deter) 150 mg tablet extended release 12 hr 150 mg PO BID 30 Days Qty: 60 6RF Trelegy Ellipta 200-62.5-25 mcg blister with device 1 ea PO DAILY Qty: 60 0RF roflumilast [Daliresp] 500 mcg tablet 500 mcg PO DAILY 30 Days Qty: 30 11RF nicotine 21 mg/24 hr patch 24 hour 1 patch transdermal DAILY 28 Days Qty: 28 3RF amoxicillin-pot clavulanate 875-125 mg tablet 1 tab PO BID 10 Days Qty: 20 0RF Paxlovid 300 mg (150 mg x 2)-100 mg tablets,dose pack See Rx Instructions PO .COMPLEX 5 Days Qty: 30 0RF Rx Instructions: take TWO 150 mg tablets of nirmatrelvir with ONE 100 mg tablet of ritonavir twice daily for 5 days PO cyclobenzaprine 10 mg tablet 10 mg PO TID PRN (Reason: muscle spasm) Qty: 20 0RF benzonatate 200 mg capsule 200 mg PO TID PRN (Reason: cough) Qty: 15 0RF hydroxyzine HCl 25 mg tablet 25 mg PO BID PRN (DME) nebulizers Misc See Rx Instructions .Route Rx Instructions: As directed Trulicity 4.5 mg/0.5 mL pen injector subcut insulin glargine [Lantus Solostar U-100 Insulin] 100 unit/mL (3 mL) insulin pen subcut insulin lispro 100 unit/mL solution subcut epinephrine 0.3 mg/0.3 mL auto-injector 0.3 mg IM ONCE PRN (Reason: anaphylaxis) albuterol sulfate 2.5 mg /3 mL (0.083 %) solution for nebulization 2.5 mg inhalation ONCE Qty: 3 0RF gabapentin 300 mg capsule 600 mg PO TID albuterol sulfate 2.5 mg /3 mL (0.083 %) solution for nebulization 2.5 mg inhalation Q6H PRN (Reason: shortness of breath or wheezing) Qty: 180 12RF albuterol sulfate 90 mcg/actuation HFA aerosol inhaler 2 inh inhalation Q6H PRN (Reason: shortness of breath or wheezing) 30 Days Qty: 18 12RF fluticasone propionate 50 mcg/actuation spray,suspension 2 spray intranasal DAILY Qty: 16 0RF doxycycline monohydrate 100 mg tablet 100 mg PO BID 14 Days Qty: 28 0RF codeine-guaifenesin 10-100 mg/5 mL liquid 10 ml PO Q6H PRN (Reason: cough) 10 Days Qty: 300 0RF oxymetazoline [Afrin (oxymetazoline)] 0.05 % spray,non-aerosol 2 spray intranasal Q12H PRN (Reason: nasal congestion) 5 Days Qty: 30 0RF pseudoephedrine HCl 120 mg tablet extended release 120 mg PO Q12H 30 Days Qty: 60 1RF Referrals: [facility] [place] [facility] [Provider Group, Internal Medicine] Print Language: Ethiopian
--- OUTSIDE RECORDS SUMMARY | 2025-10-28 14:46 | XMS_ITS | Data Portability ---
Author Organization [place] - [facility], Allergy Address [address] [address] Assessment Encounter Date Assessment Date Assessment LastModified [...] 12/31/2024 13:42:14 01/29/2025 01/29/2025 49 year old [place]ib[place]ian speaking female presents for follow up of [...] oil 0.01 % ear drops 2024 025 [id number], [address], [place], [phone], 09:20:04 Patient TargetsNo targets recorded. Patient InstructionsNo instructions recorded. Reason for Referral None Reported. Problems Name Problem SNOMED Code Status Onset Date Resolution Date Notes Provider Name and Address Organization Details Recorded Time Bleeding from nose 963031293 Active 2022 Epistaxis ; Note: Date Diagnosed : 04/07/2023 12:31 PM (R04.0) Not Available [facility] 4 03:03:35 Otorrhagi a of bilateral ears 88948789495 10822 Active 2022 Otorrhagi a, bilateral ; Note: Date Diagnosed : 04/07/2023 12:31 PM (H92.23) Not Available [facility] 4 03:03:37 Abnormal auditory perceptio n 74116850 Active 2022 Other abnormal auditory perceptio ns, bilateral ; Note: Date Diagnosed : 04/07/2023 10:37 AM (H93.293) Not Available [facility] 4 03:03:35 Bilateral tinnitus 42403775498 02 Active 2022 Tinnitus, bilateral ; Note: Date Diagnosed : 06/21/2023 2:27 PM (H93.13) Not Available [facility] 4 03:03:35 Itching of ear 348786807 Active 2024 Rey larry [place] - [facility] 5 09:19:31 Problem Notes None recorded. Medical Equipment None Reported. Allergies Allergen ID Allergen Name Allergen Category Reaction Reaction Severity Criticality Documentation Date Start Date Code Code System Note Provider Name and Address Organization Details Recorded Time 535927 latex environme nt,medica tion other Not available Not available 04/04/2024 22912 91 RxNorm React ion: Unkno wn; Not Available [facility] 4 01:08:26 Medications Name Sig Start Date [...] Lancets 28 gauge active Medicatio n ID: [id number] Br and Name: FreeStyle Lancets S end [...] % topical cream active Medicatio n ID: [id number] Br and Name: capsaicin Send Method: E-Prescri bed Subs Allowed: subs OK Medica tionGener icName: capsaicin Not Available Not Available Not Available mirtazapin e 15 mg tablet active Not Available Not Available Not Available gabapentin 100 mg capsule active Medicatio n ID: [id number] Br and Name: gabapenti n Send Method: [...] % topical cream active Medicatio n ID: [id number] Br and Name: clotrimaz ole Send Method: [...] 25 mg capsule active Medicatio n ID: [id number] Br and Name: zonisamid e Send Method: [...] % topical gel active Medicatio n ID: [id number] Br and Name: diclofena c sodium Se nd Method: E-Prescri bed Subs Allowed: subs OK Medica tionGener icName: diclofena c sodium Not Available Not Available Not Available diclofenac 1.5 % topical drops active Medicatio n ID: [id number] Br and Name: diclofena c sodium Se [...] Fastclix Lancet Drum active Medicatio n ID: [id number] Br and Name: Accu-Chek Fastclix Lancet Drum Send Method: E-Prescri bed Subs Allowed: subs OK Medica tionGener icName: Accu-Chek Fastclix Lancet Drum Not Available Not Available Not Available FreeStyle Davi 14 Day Sensor kit active Not Available Not Available Not Available FreeStyle Davi 2 Magnet USE TO MONITOR BLOOD SUGAR active Not Available Not Available No t Available Trulicity 3 mg/0.5 mL subcutaneo us pen injector active Not Available Not Available Not Available Trulicity 4.5 mg/0.5 mL subcutaneo us pen injector active Medicatio n ID: [id number] Br and Name: Trulicity Send Method: E-Prescri [...] Updated DateTime 12/29/2024 162.56 cm 36.9 kg/m2 95381.36 g Alicia Dunham [place] - [facility] 12/29/2024 15:23:55 Date Recorded Body height Body mass index (BMI) Body weight Provider Name and Address Organization Details Last Updated DateTime 01/29/2025 162.56 cm 36.9 kg/m2 99971.36 g Virginia Ho [facility] 01/29/2025 08:44:18 Social History None recorded. Functional Status None recorded. Mental Status None recorded. Family History Nothing Reported. Medical History No medical history recorded. Gynecological HistoryNo gynecological history recorded. Obstetrics History GPAL:G 0 P 0 0 0 0 Past Encounters Encounter ID Performer Location Encounter Start Date Encounter Closed Date Diagnosis/Indication Diagnosis SNOMED-CT Code Diagnosis ICD10 Code Diagnosis IMO Codes Diagnosis Note [id number] REY WHEATLEY PA-C [facility] on [address] [place] [id number] 12/29/2024 14:35:20 12/29/2024 15:38:31 Bleeding from nose 750584320 R04.0 Otorrhagia of bilateral ears 1554933862 891357 H92.23 [id number] REY WHEATLEY PA-C [facility] on [address] [place] [address] 01/29/2025 08:40:30 01/29/2025 09:21:14 Itching of ear 548061092 L29.81 Bleeding from nose 59941 6005 R04.0 Otorrhagia of bilateral ears 0616818093 389839 H92.23 Health Concerns Section Related Observation LastModified by Organization Detai ls LastModified Time None Recorded Concern Status LastModified by Organization Details LastModified Time None Recorded Advance Directives Directive None Recorded Payers Insurance Date Sequence Insurance Name Policy Number Policy Eric Covered Member ID Eric Member ID Guarantor Name 01/31/2025 1 [facility] [id number] Susan Alfonso [id number] Susan Alfonso Notes Date Note Type Note Provider Name and Address Organization Details Recorded Time 12/29/2024 text/html ROS as noted in the HPI 49 year old [place]ib[place]ian speaking female presents reporting epistaxis that started [...] some blood on the qtip. 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 HALEY SANDOVAL MD [address] [place] [address], [phone], [facility] - [facility] 01/01/2025 19:43:47 01/29/2025 text/html ROS as noted in the HPI 49 year old [place]ib[place]ian speaking female presents for follow up of her ears and nose. Since her visit last month she has had no nosebleeds or bleeding from the ears. She has been using nasal saline and gel in the nose. She does complain of some itching in the ears. HALEY SANDOVAL MD [address] [place] [address],[address], [address], [place] - [facility] 01/29/2025 09:40:28 OBGyn Episode No OBEpisode recorded.
[2025-10-28 15:06] VITALS: BP 132/79; PULSE 87; RESP 18; TEMP 36.6; O2SAT 98
== END 2025-10-28 15:10 | disposition home or self-care (01) ==
PROVIDERS: Emergency Provider Emergency Medicine; PCP Internal Medicine
DX: M54.50 Low back pain, unspecified (principal); E11.9 Type 2 diabetes mellitus without complications; J45.909 Unspecified asthma, uncomplicated; F17.210 Nicotine dependence, cigarettes, uncomplicated; Z79.899 Other long term (current) drug therapy
CPT/HCPCS: 73502; 99282; 99283

== ENCOUNTER → 2025-10-28 13:31 | Outpatient (BNV) | payer OTHER, SELFPAY | PROVIDERS: Emergency Provider Emergency Medicine; PCP Internal Medicine; Visit Provider Radiology Diagnostic Radiology | DX: M25.552 Pain in left hip (principal) | CPT/HCPCS: 73502 ==